=== PATIENT | female | born 1955 | race Caucasian/White ===

== ENCOUNTER 2017-12-18 08:00 | Outpatient (CLI) | payer MEDICARE ==
[2017-12-18 19:16] LABS: BILIRUBIN,URINE NEGATIVE (NEGATIVE); GLUCOSE, URINE (UA) NEGATIVE (NEGATIVE); KETONES,URINE (UA) NEGATIVE (NEGATIVE); LEUKOCYTE ESTERASE, URINE NEGATIVE (NEGATIVE); NITRITE,URINE NEGATIVE (NEGATIVE); OCCULT BLOOD,URINE NEGATIVE (NEGATIVE); PROTEIN,URINE NEGATIVE (NEGATIVE); UROBILINOGEN,URINE 0.2 (NORMAL) E.U./dL (NORMAL)
[2017-12-18 19:33] LABS: BACTERIA,URINE None Seen /HPF (None Seen); CLARITY,URINE CLEAR (CLEAR); RBC,URINE None Seen /HPF (0-5); SQUAMOUS EPITHELIAL CELL,UR FEW Squamous (<= Few)
== END 2017-12-18 08:01 ==
LOC: LAB.R 08:00
PROVIDERS: ATTEND Family Medicine
DX: R31.9 Hematuria, unspecified (principal)
CPT/HCPCS: 81001; 87086

== ENCOUNTER 2017-12-30 08:00 | Outpatient (CLI) | payer MEDICARE ==
[2017-12-30 19:38] LABS: BASOPHILS # (AUTO) 0.1 10^3/uL (0.0-0.1); BASOPHILS % (AUTO) 0.9 %; EOSINOPHILS # (AUTO) 0.7 10^3/uL (0.0-0.7); EOSINOPHILS % (AUTO) 10.1 %; HGB - HEMOGLOBIN 12.3 g/dL (12.0-16.0); LYMPHOCYTES # (AUTO) 2.3 10^3/uL (1.5-3.5); LYMPHOCYTES % (AUTO) 32.1 %; MEAN CORPUSCULAR HEMOGLOBIN 30.3 pg (27.0-31.0); MEAN CORPUSCULAR HGB CONC 32.8 g/dL (32.0-36.0); MEAN CORPUSCULAR VOLUME 92.4 fL (81.0-99.0); MEAN PLATELET VOLUME 8.8 fL (7.9-10.8); MONOCYTES # (AUTO) 0.6 10^3/uL (0.0-1.0); MONOCYTES % (AUTO) 8.2 %; NEUTROPHILS # (AUTO) 3.5 10^3/uL (1.5-6.6); NEUTROPHILS % (AUTO) 48.7 %; PLT - PLATELET COUNT 219 10^3/uL (130-450); RED BLOOD COUNT 4.07 10^6/uL (4.20-5.40); RED CELL DISTRIBUTION WIDTH 13.7 % (12.0-15.0); WHITE BLOOD COUNT 7.2 x10^3/uL (4.8-10.8)
[2017-12-30 20:04] LABS: ALBUMIN 3.9 g/dL (3.2-5.5); ALKALINE PHOSPHATASE 83 IU/L (42-121); ALT ALANINE AMINOTRANSFERASE 12 IU/L (10-60); AST ASPARTATE AMINOTRANSFERASE 16 IU/L (10-42); BILIRUBIN,TOTAL 0.7 mg/dL (0.2-1.0); BUN - BLOOD UREA NITROGEN 39 mg/dL (6-20); CALCIUM 9.2 mg/dL (8.5-10.3); CARBON DIOXIDE - CO2 28 mmol/L (21-32); CHLORIDE 104 mmol/L (101-111); CHOL/HDL RATIO 5.1 (<4.4); CHOLESTEROL 204 mg/dL; GFR - MDRD 56 (>89); GLUCOSE 114 mg/dL (70-100); HDL CHOLESTEROL 40 mg/dL; LDL CHOLESTEROL,CALCULATED 131 mg/dL; LDL/HDL RATIO 3.3 (<4.4); SODIUM 138 mmol/L (135-145); VLDL CHOLESTEROL 33 mg/dL
== END 2017-12-30 08:01 | disposition home or self-care (01) ==
LOC: LAB.N 08:00
PROVIDERS: ATTEND Family Medicine
DX: I10 Essential (primary) hypertension (principal); E66.9 Obesity, unspecified
CPT/HCPCS: 36415; 80053; 80061; 83721; 84443; 85025

== ENCOUNTER 2018-03-12 08:00 | Outpatient (CLI) | payer MEDICARE | END 2018-03-12 08:01 | LOC: LAB.R 08:00 | PROVIDERS: ATTEND Family Medicine | DX: L97.821 Non-pressure chronic ulcer of other part of left lower leg limited to breakdown of skin (principal) ==

== ENCOUNTER 2018-06-25 16:40 | Emergency (ER) | payer MEDICARE, MEDICAID ==
[2018-06-25 17:35] LABS: BASOPHILS # (AUTO) 0.1 10^3/uL (0.0-0.1); BASOPHILS % (AUTO) 1.3 %; EOSINOPHILS # (AUTO) 0.4 10^3/uL (0.0-0.7); EOSINOPHILS % (AUTO) 6.5 %; HGB - HEMOGLOBIN 12.1 g/dL (12.0-16.0); LYMPHOCYTES # (AUTO) 1.8 10^3/uL (1.5-3.5); LYMPHOCYTES % (AUTO) 29.6 %; MEAN CORPUSCULAR HEMOGLOBIN 31.2 pg (27.0-31.0); MEAN CORPUSCULAR VOLUME 94.4 fL (81.0-99.0); MEAN PLATELET VOLUME 8.5 fL (7.9-10.8); MONOCYTES # (AUTO) 0.5 10^3/uL (0.0-1.0); MONOCYTES % (AUTO) 7.3 %; NEUTROPHILS # (AUTO) 3.4 10^3/uL (1.5-6.6); NEUTROPHILS % (AUTO) 55.3 %; PLT - PLATELET COUNT 176 10^3/uL (130-450); RED BLOOD COUNT 3.89 10^6/uL (4.20-5.40); WHITE BLOOD COUNT 6.2 x10^3/uL (4.8-10.8)
[2018-06-25 17:42] LABS: INR 1.1 (0.8-1.2)
--- NOTE | 2018-06-25 17:44 | ED Physician Documentation ---
PD HPI GI BLEED - Stated complaint Stated Complaint: FEMALE - Chief complaint Chief Complaint: Abd Pain - History obtained from History obtained from: Patient, Family - History of Present Illness Timing - onset: How many weeks ago (1) Timing - duration: Weeks (1) Timing - details: Gradual onset Pain level max: 4 Pain level now: 3 Associated symptoms: BRBPR, Diarrhea, Abdominal pain (lower abd pain, cramping). No: Vomiting, Coffee ground emesis, Hematemesis, Maroon stool, Black/tarry stool, Constipation, Fever, Dizzy, Near syncope / syncope, Loss of appetite Contributing factors: No: Sick contact, Bad food, Travel, Recent antibiotics, Alcohol use, Aspirin use, NSAID use, Stress, Anticoagulated Improved by: Other (nothing) Worsened by: Other (nothing) Similar symptoms before: Has not had sx before Recently seen: Not recently seen - Additional information Additional information: Patient states has noticed small amount of bright red blood in the stool over the past week or so. Increased bright red blood in the toilet today. Has had lower abdominal cramping as well Review of Systems Constitutional: denies: Fever, Chills Ears: denies: Ear pain Nose: denies: Rhinorrhea / runny nose, Congestion Throat: denies: Sore throat Cardiac: denies: Chest pain / pressure Respiratory: denies: Cough GI: denies: Nausea, Vomiting Skin: denies: Rash Musculoskeletal: denies: Neck pain, Back pain PD PAST MEDICAL HISTORY - Past Medical History Past Medical History: Yes - Present Medications Home Medications: Ambulatory Orders Medication Instructions Recorded Confirmed Citalopram [CeleXA] 10 mg 06/25/18 Cranberry 2 cap 06/25/18 Diclofenac Sodium 75 mg BID 06/25/18 06/25/18 Enalapril [Vasotec] 5 mg 06/25/18 Magnesium 400 mg 06/25/18 Nebivolol HCl [Bystolic] 5 mg 06/25/18 Nystatin 1 applic TP BID PRN #1 powder 06/25/18 Triamterene/Hydrochlorothiazid 1 cap 06/25/18 [Triamterene-Hctz 37.5-25 mg Cp] - Allergies Allergies/Adverse Reactions: Allergies Allergy/AdvReac Type Severity Reaction Status Date / Time azithromycin Allergy Hives Verified 06/25/18 16:53 mupirocin [From Bactroban] Allergy Rash Verified 06/25/18 16:53 Penicillins Allergy Hives Verified 06/25/18 16:53 strawberry Allergy Hives Verified 06/25/18 16:53 walnut Allergy Hives Verified 06/25/18 16:53 PD ED PE NORMAL - Vitals Vital signs reviewed: Yes - General General: Alert and oriented X 3, No acute distress - HEENT HEENT: Moist mucous membranes - Neck Neck: Supple, no meningeal sign - Cardiac Cardiac: RRR, Strong equal pulses - Respiratory Respiratory: No respiratory distress, Clear bilaterally - Abdomen Abdomen: Soft, Non distended, Other (Mild tenderness to palpation across the lower abdomen) - Rectal Rectal: Other (Brown stool, skin breakdown around the perineal area) - Derm Derm: Warm and dry - Neuro Neuro: Alert and oriented X 3 - Psych Psych: Normal mood, Normal affect Results - Vitals Vitals: Vital Signs - 24 hr 06/25/18 06/25/18 16:49 19:20 Temperature 36.2 C L Heart Rate 57 L 64 Respiratory 18 20 Rate Blood Pressure 122/67 120/77 O2 Saturation 95 Oxygen O2 Source Room air - Labs Labs: Laboratory Tests 06/25/18 06/25/18 06/25/18 17:23 17:23 17:23 WBC RBC Hgb Hct MCV MCH MCHC RDW Plt Count MPV Neut # (Auto) Lymph # (Auto) Bond # (Auto) Eos # (Auto) Baso # (Auto) Absolute Nucleated RBC Nucleated RBC % PT 12.0 INR 1.1 APTT 25.0 Sodium 139 Potassium 5.2 H Chloride 105 Carbon Dioxide 26 Anion Gap 8.0 BUN 49 H Creatinine 1.5 H Estimated GFR (MDRD) 35 L Glucose 102 H Calcium 9.2 Total Bilirubin 0.3 AST 16 ALT 14 Alkaline Phosphatase 74 Total Protein 7.6 Albumin 4.2 Globulin 3.4 Albumin/Globulin Ratio 1.2 Lipase 33 Blood Type O POSITIVE Antibody Screen NEGATIVE 06/25/18 17:23 WBC 6.2 RBC 3.89 L Hgb 12.1 Hct 36.7 L MCV 94.4 MCH 31.2 H MCHC 33.0 RDW 13.0 Plt Count 176 MPV 8.5 Neut # (Auto) 3.4 Lymph # (Auto) 1.8 Bond # (Auto) 0.5 Eos # (Auto) 0.4 Baso # (Auto) 0.1 Absolute Nucleated RBC 0.01 Nucleated RBC % 0.1 PT INR APTT Sodium Potassium Chloride Carbon Dioxide Anion Gap BUN Creatinine Estimated GFR (MDRD) Glucose Calcium Total Bilirubin AST ALT Alkaline Phosphatase Total Protein Albumin Globulin Albumin/Globulin Ratio Lipase Blood Type Antibody Screen - Rads (name of study) CT abd/pelvis Radiology: Prelim report reviewed, EMP read contemporaneously, See rad report (No bowel abnormality identified to explain rectal bleeding and pain. 2. Prominent common bile duct post cholecystectomy. 3. Lower pole left renal cyst. 4. Advanced degenerative and postoperative changes of the lumbar spine. ) PD MEDICAL DECISION MAKING - ED course Complexity details: reviewed results, re-evaluated patient, considered differential, d/w patient ED course: Patient is a 63-year-old female who presents to the emergency department with rectal bleeding. Have some abdominal tenderness, therefore CT was performed to evaluate for possible diverticulitis. This was negative. She then started bleeding in the emergency department and there was a small Puncture in the gluteal cleft. This was cauterized with silver nitrate and the bleeding resolved. Appears to be secondary to skin breakdown. Will place on nystatin powder to help with the yeast infection. Patient and family counseled regarding signs and symptoms for which I believe and urgent re-evaluation would be necessary. Patient with good understanding of and agreement to plan and is comfortable going home at this time This document was made in part using voice recognition software. While efforts are made to proofread this document, sound alike and grammatical errors may occur. Departure - Departure Disposition: 01 Home, Self Care Clinical Impression: Rectal bleeding, Skin breakdown, Rachel infection of flexural skin Condition: Good Instructions: ED Candidiasis Cutaneous Follow-Up: Rob Sullivan MD [Primary Care Provider] - Within 1 week Prescriptions: Nystatin 1 applic TP BID PRN #1 powder PRN Reason: rash Comments: Use the nystatin cream and see how she progresses. Return if she worsens. We cauterized the area tonight that was bleeding. If bleeding recurs she can hold direct pressure until it stops. Discharge Date/Time: 06/25/18 19:25
[2018-06-25 17:49] LABS: ALBUMIN 4.2 g/dL (3.2-5.5); ALBUMIN/GLOBULIN RATIO 1.2 (1.0-2.2); BILIRUBIN,TOTAL 0.3 mg/dL (0.2-1.0); CALCIUM 9.2 mg/dL (8.5-10.3); CREATININE 1.5 mg/dL (0.4-1.0); TOTAL PROTEIN 7.6 g/dL (6.7-8.2)
[2018-06-25] MEDS ORDERED: IOPAMIDOL-300 100 ML VIAL ONE (17:51)
[2018-06-25] MEDS ORDERED: SODIUM CHLORIDE 0.9% 1,000 ML IV ONE ×2 (18:21)
--- NOTE | 2018-06-25 18:39 | CT Report ---
Reason: rectal bleeding, lower abd pain Procedure Date: 06/25/2018 Accession Number: [id number] / [id number] Procedure: CT - Abdomen/Pelvis W/ CPT Code: FULL RESULT: EXAM: CT ABDOMEN AND PELVIS EXAM DATE: 06/25/2018 06:16 PM. CLINICAL HISTORY: Rectal bleeding. Lower abdomen pain. COMPARISONS: None. TECHNIQUE: Routine helical CT imaging was performed through the abdomen and pelvis. IV contrast: 100 cc of Isovue-300. Enteric contrast: No. Reconstructions: Coronal and sagittal. In accordance with CT protocol optimization, one or more of the following dose reduction techniques were utilized for this exam: automated exposure control, adjustment of mA and/or KV based on patient size, or use of iterative reconstructive technique. FINDINGS: Lung Bases: Unremarkable. Liver: Normal. No masses. Gallbladder/Bile Ducts: Prominent common bile duct at 11 mm in diameter. Cholecystectomy. Spleen: Normal. Pancreas: Normal. Adrenal Glands: Normal. Kidneys: Lower pole cyst on the left, otherwise unremarkable. Peritoneal Cavity/Bowel: Normal. No free fluid, free air or adenopathy. No masses or acute inflammatory process. The appendix is well visualized and normal. Pelvic Organs: Normal. The bladder and visualized pelvic organs are within normal limits. Vasculature: No aneurysms or other significant abnormality. Bones: Advanced degenerative and postoperative changes in the lumbar spine. Other: None. IMPRESSION: 1. No bowel abnormality identified to explain rectal bleeding and pain. 2. Prominent common bile duct post cholecystectomy. 3. Lower pole left renal cyst. 4. Advanced degenerative and postoperative changes of the lumbar spine. RADIA
[2018-06-25 19:29] VITALS: BP 120/77
[2018-06-25] MEDS ORDERED: IOPAMIDOL-300 100 ML VIAL IVP ONE (19:29)
== END 2018-06-25 19:25 | disposition home or self-care (01) ==
LOC: ED 16:40
DX: K62.5 Hemorrhage of anus and rectum (principal); S31.803A Puncture wound without foreign body of unspecified buttock, initial encounter; X58.XXXA Exposure to other specified factors, initial encounter; B37.2 Candidiasis of skin and nail
CPT/HCPCS: 36415; 74177; 80053; 83690; 85025; 85610; 85730; 86850; 86900; 86901; 99283; 99284; Q9967; 85027

== ENCOUNTER 2018-07-29 08:00 | Outpatient (CLI) | payer MEDICARE, MEDICAID ==
[2018-07-29 12:50] LABS: CALCIUM 9.6 mg/dL (8.5-10.3); CREATININE 1.4 mg/dL (0.4-1.0)
== END 2018-07-29 08:01 | disposition home or self-care (01) ==
LOC: LAB.N 08:00
PROVIDERS: ATTEND Family Medicine
DX: I10 Essential (primary) hypertension (principal)
CPT/HCPCS: 36415; 80048

== ENCOUNTER 2018-10-23 08:00 | Outpatient (CLI) | payer MEDICARE, MEDICAID ==
[2018-10-23 13:35] LABS: BASOPHILS # (AUTO) 0.1 10^3/uL (0.0-0.1); EOSINOPHILS % (AUTO) 16.1 %; HGB - HEMOGLOBIN 11.3 g/dL (12.0-16.0); LYMPHOCYTES # (AUTO) 1.7 10^3/uL (1.5-3.5); MEAN CORPUSCULAR HGB CONC 32.9 g/dL (32.0-36.0); MEAN CORPUSCULAR VOLUME 94.3 fL (81.0-99.0); MEAN PLATELET VOLUME 8.6 fL (7.9-10.8); MONOCYTES # (AUTO) 0.4 10^3/uL (0.0-1.0); MONOCYTES % (AUTO) 5.6 %; NEUTROPHILS # (AUTO) 3.3 10^3/uL (1.5-6.6); NEUTROPHILS % (AUTO) 51.3 %; PLT - PLATELET COUNT 207 10^3/uL (130-450); RED BLOOD COUNT 3.65 10^6/uL (4.20-5.40); RED CELL DISTRIBUTION WIDTH 13.2 % (12.0-15.0); WHITE BLOOD COUNT 6.5 x10^3/uL (4.8-10.8)
[2018-10-23 14:46] LABS: ALBUMIN 3.6 g/dL (3.2-5.5); ALKALINE PHOSPHATASE 66 IU/L (42-121); ALT ALANINE AMINOTRANSFERASE 14 IU/L (10-60); AST ASPARTATE AMINOTRANSFERASE 17 IU/L (10-42); BILIRUBIN,TOTAL 0.5 mg/dL (0.2-1.0); BUN - BLOOD UREA NITROGEN 37 mg/dL (6-20); CARBON DIOXIDE - CO2 28 mmol/L (21-32); CHLORIDE 105 mmol/L (101-111); CHOL/HDL RATIO 4.5 (<4.4); CHOLESTEROL 180 mg/dL; CREATININE 1.5 mg/dL (0.4-1.0); GFR - MDRD 35 (>89); GLUCOSE 97 mg/dL (70-100); HDL CHOLESTEROL 40 mg/dL; LDL CHOLESTEROL,CALCULATED 105 mg/dL; LDL/HDL RATIO 2.6 (<4.4); SODIUM 141 mmol/L (135-145); TOTAL PROTEIN 7.3 g/dL (6.7-8.2); VLDL CHOLESTEROL 35 mg/dL
[2018-10-23 15:03] LABS: HB2 TOTAL 12.2 g/dL; HEMOGLOBIN A1C 0.35 g/dL; HEMOGLOBIN A1C % 4.8 % (4.6-6.2)
== END 2018-10-23 23:59 | disposition home or self-care (01) ==
LOC: LAB.N 08:00
DX: R73.01 Impaired fasting glucose (principal); I10 Essential (primary) hypertension
CPT/HCPCS: 36415; 80053; 80061; 83036; 83721; 84443; 85025

== ENCOUNTER 2019-01-08 19:52 | Emergency (ER) | payer MEDICARE, MEDICAID ==
[2019-01-08 20:13] LABS: GLUCOSE, URINE (UA) NEGATIVE (NEGATIVE); KETONES,URINE (UA) TRACE mg/dL (NEGATIVE); LEUKOCYTE ESTERASE, URINE MODERATE (NEGATIVE); NITRITE,URINE POSITIVE (NEGATIVE); OCCULT BLOOD,URINE LARGE (NEGATIVE); PH,URINE 6.5 PH (5.0-7.5); PROTEIN,URINE 100 mg/dL (NEGATIVE); UROBILINOGEN,URINE 1 (NORMAL) E.U./dL (NORMAL)
[2019-01-08 20:23] LABS: BILIRUBIN,URINE NEGATIVE (NEGATIVE); CLARITY,URINE CLOUDY (CLEAR); ICTOTEST,URINE NEGATIVE; RBC,URINE TNTC /HPF (0-5); SQUAMOUS EPITHELIAL CELL,UR FEW Squamous (<= Few); WBC CLUMPS,URINE PRESENT
[2019-01-08 20:24] LABS: BACTERIA,URINE Moderate /HPF (None Seen)
--- NOTE | 2019-01-08 20:30 | ED Physician Documentation ---
PD HPI FEMALE - Stated complaint Stated Complaint: FEM - Chief complaint Chief Complaint: Abd Pain - History obtained from History obtained from: Patient - History of Present Illness Timing - onset: How many days ago (few) Timing - duration: Days (few) Timing - details: Gradual onset, Still present Associated symptoms: Dysuria, Urinary frequency, Hematuria. No: Fever, Vaginal discharge Similar symptoms before: Diagnosis (UTIs) Recently seen: Not recently seen Review of Systems Constitutional: denies: Fever, Chills GI: denies: Abdominal Pain, Nausea, Vomiting, Diarrhea : reports: Dysuria, Hematuria PD PAST MEDICAL HISTORY - Past Medical History Past Medical History: Yes Cardiovascular: Hypertension, High cholesterol Respiratory: Asthma Neuro: None Endocrine/Autoimmune: None GI: None IOS DEVELOPER: None : None HEENT: None Psych: Depression Musculoskeletal: Osteoarthritis Derm: None - Past Surgical History Past Surgical History: Yes General: Colonoscopy Ortho: Knee replacement - Present Medications Home Medications: Ambulatory Orders Medication Instructions Recorded Confirmed Citalopram [CeleXA] 10 mg PO DAILY 06/25/18 12/18/18 Cranberry 2 cap PO PRN PRN 06/25/18 12/18/18 Diclofenac Sodium 75 mg PO BID 06/25/18 12/18/18 Enalapril [Vasotec] 2.5 mg PO DAILY PM 06/25/18 12/18/18 Nebivolol HCl [Bystolic] 5 mg PO DAILY 06/25/18 12/18/18 Acetaminophen [Acetaminophen ER] 650 mg PO TID PRN 12/18/18 12/18/18 Albuterol Sulfate [Albuterol 2 puffs INH Q4H PRN 12/18/18 12/18/18 Sulfate Hfa] Aspirin [Aspirin EC] 81 mg PO DAILY 12/18/18 12/18/18 Ondansetron Odt [Zofran Odt] 4 mg PO Q8H PRN 12/18/18 12/18/18 Phenazopyridine HCl [Pyridium] 200 mg PO TID PRN #6 tablet 01/08/19 Psyllium Husk [Metamucil] 0.52 gm PO DAILY #30 capsule 01/08/19 Saccharomyces Boulardii [Florastor] 250 mg PO BID #20 capsule 01/08/19 Sulfamethox/Trimeth 800/160 1 each PO BID #14 tablet 01/08/19 [Bactrim Ds 800/160] - Allergies Allergies/Adverse Reactions: Allergies Allergy/AdvReac Type Severity Reaction Status Date / Time azithromycin Allergy Hives Verified 06/25/18 16:53 mupirocin [From Bactroban] Allergy Rash Verified 06/25/18 16:53 Penicillins Allergy Hives Verified 06/25/18 16:53 strawberry Allergy Hives Verified 06/25/18 16:53 walnut Allergy Hives Verified 06/25/18 16:53 - Social History Does the pt smoke?: No Smoking Status: Never smoker Does the pt drink ETOH?: No Does the pt have substance abuse?: Yes Substance Use and Type: Marijuana - Immunizations Immunizations are current?: Yes PD ED PE NORMAL - Vitals Vital signs reviewed: Yes - General General: Alert and oriented X 3, No acute distress, Well developed/nourished - Abdomen Abdomen: Soft, Non tender - Female Female : Deferred - Back Back: No CVA TTP Results - Vitals Vitals: Vital Signs - 24 hr 01/08/19 21:35 Heart Rate 50 L Respiratory 16 Rate Blood Pressure 100/79 O2 Saturation 94 Oxygen O2 Source Room air - Labs Labs: Microbiology 01/08/19 20:04 Urine Culture - Preliminary Urine,Clean Catch Laboratory Tests 01/08/19 20:04 Urine Color BROWN Urine Clarity CLOUDY Urine pH 6.5 Ur Specific [place] 1.020 Urine Protein 100 H Urine Glucose (UA) NEGATIVE Urine Ketones TRACE Urine Occult Blood LARGE H Urine Nitrite POSITIVE H Urine Bilirubin NEGATIVE Urine Urobilinogen 1 (NORMAL) Ur Leukocyte Esterase MODERATE H Urine RBC TNTC H Urine WBC >25 H Urine WBC Clumps PRESENT Ur Squamous Epith Cells FEW Squamous Urine Bacteria Moderate H Ur Microscopic Review INDICATED Urine Culture Comments INDICATED PD MEDICAL DECISION MAKING - ED course Complexity details: reviewed results, considered differential, d/w patient Departure - Departure Disposition: 01 Home, Self Care Clinical Impression: UTI (urinary tract infection) Qualifiers: Urinary tract infection type: acute cystitis Hematuria presence: with hematuria Qualified Code(s): N30.01 - Acute cystitis with hematuria Diarrhea Qualifiers: Diarrhea type: infectious Qualified Code(s): A09 - Infectious gastroenteritis and colitis, unspecified Condition: Stable Record reviewed to determine appropriate education?: Yes Instructions: ED UTI Cystitis Female Follow-Up: Elisa Montelongo ARNP [Primary Care Provider] - Prescriptions: Phenazopyridine HCl [Pyridium] 200 mg PO TID PRN #6 tablet PRN Reason: dysuria Psyllium Husk [Metamucil] 0.52 gm PO DAILY #30 capsule Saccharomyces Boulardii [Florastor] 250 mg PO BID #20 capsule Sulfamethox/Trimeth 800/160 [Bactrim Ds 800/160] 1 each PO BID #14 tablet Comments: Stay well-hydrated. Use Bactrim Telfa) antibiotic twice daily for a week for the infection. Phenazopyridine 3 times a day if needed for the discomfort of urination. Able to do urine a little orange-colored so not to worry. Use Metamucil fiber daily to try to regulate stools not to soft and not too hard. Add Florastor probiotic twice daily for a week. Recheck if your urinary symptoms are not improving over the next 2 to 3 days. Recheck if your stools are not more regular over the next week or so. Discharge Date/Time: 01/08/19 21:36
[2019-01-08] MEDS ORDERED: PHENAZOPYRIDINE 100 MG TABLET PO STA (21:02)
[2019-01-08] MEDS ORDERED: SULFAMETH/TRIMETH DS 800/160 MG TABLET PO STA (21:02)
[2019-01-08] MEDS ORDERED: NAPROXEN 250 MG TABLET PO STA (21:02)
[2019-01-08 22:19] VITALS: BP 100/79
== END 2019-01-08 21:36 | disposition home or self-care (01) ==
LOC: ED 19:52
DX: N30.01 Acute cystitis with hematuria (principal); A09 Infectious gastroenteritis and colitis, unspecified; I10 Essential (primary) hypertension; Z79.82 Long term (current) use of aspirin
CPT/HCPCS: 81001; 87077; 87086; 87181; 99283; A9270; 81003

== ENCOUNTER 2019-07-28 08:00 | Outpatient (CLI) | payer MEDICARE, MEDICAID | END 2019-07-28 23:59 | disposition home or self-care (01) | LOC: LAB.R 08:00 | PROVIDERS: ATTEND Physician Assistant Medical | DX: L97.909 Non-pressure chronic ulcer of unspecified part of unspecified lower leg with unspecified severity (principal) | CPT/HCPCS: 87070; 87077; 87181; 87205 ==

== ENCOUNTER 2019-08-04 10:29 | Outpatient (CLI) | payer MEDICARE, MEDICAID | END 2019-08-04 10:30 | disposition critical access hospital (66) | LOC: EMS 10:29 | PROVIDERS: ATTEND Surgery | DX: M25.552 Pain in left hip (principal) | CPT/HCPCS: A0425; A0429 ==

== ENCOUNTER 2019-08-04 10:52 | Emergency (ER) | payer MEDICARE, MEDICAID ==
[2019-08-04 11:09] VITALS: BP 115/48
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
[2019-08-04] MEDS ORDERED: HYDROcod/ACETAM 5/325 MG TABLET PO STA (11:58)
[2019-08-04] MEDS ORDERED: KETOROLAC 30 MG/ML VIAL IM STA (11:58)
--- NOTE | 2019-08-04 12:57 | XRAY Report ---
Reason: po and pain left knee yesterday Procedure Date: 08/04/2019 Accession Number: [id number] / [id number] Procedure: XR - Knee 4 View LT CPT Code: Final Report FULL RESULT: EXAM: LEFT KNEE RADIOGRAPHY EXAM DATE: 08/04/2019 12:28 PM. CLINICAL HISTORY: Popping and pain left knee yesterday. COMPARISON: KNEE 3 VIEW LT 01/12/2018 2:51 PM. TECHNIQUE: 4 views. FINDINGS: Bones/joints: No obvious acute fracture. Severe degenerative changes with tricompartmental joint space narrowing and marginal osteophyte formation No obvious effusion. No subluxation. Soft Tissues: Unremarkable. IMPRESSION: 1. No acute fracture or malalignment. 2. Severe degenerative changes. RADIA
== END 2019-08-04 14:08 | disposition home or self-care (01) ==
LOC: ED 10:52
DX: S86.912A Strain of unspecified muscle(s) and tendon(s) at lower leg level, left leg, initial encounter (principal); M17.10 Unilateral primary osteoarthritis, unspecified knee; X58.XXXA Exposure to other specified factors, initial encounter; Y92.099 Unspecified place in other non-institutional residence as the place of occurrence of the external cause; I10 Essential (primary) hypertension
CPT/HCPCS: 73564; 96372; 99283; 99284; A9270

== ENCOUNTER 2020-03-08 15:00 | Outpatient (CLI) | payer MEDICARE, MEDICAID ==
--- NOTE | 2020-03-08 16:54 | Ultrasound Report ---
PROCEDURE: Pelvic w/Transvaginal INDICATIONS: POSTMENOPAUSAL BLEEDING TECHNIQUE: Real-time scanning was performed of the pelvic organs, with image documentation. Additional endovagi nal scanning was necessary due to incomplete visualization of the adnexal and endometrial structures by transabdominal scanning. COMPARISON: None. FINDINGS: Transabdominal scanning: Limited scanning through the kidneys shows no hydronephrosis. No pathologi c free abdominal or pelvic fluid. Endovaginal scanning: Uterus: Uterus is normal in size at 8.8 x 4.0 x 4.3 cm. Uterine echotexture is within normal limits. The endometrium measures 5.2 mm in combined thickness. Ovaries: Right ovary measures 1.7 x 1.2 x 1.1 cm. Left ovary measures 1.5 x 11.5 x 1.4 cm. Ovaries a re sonographically normal. Incidental note made of bilateral simple appearing renal cysts. Additional note made of nabothian cys ts. IMPRESSION: 1. Slightly thickened endometrium in female with postmenopausal bleeding. Recommend gynecology consul tation to evaluate for D&C. 2. Ovaries are sonographically normal. Reviewed by: Shivani Milton MD, PhD on 03/08/2020 4:53 PM PDT Approved by: Shivani Milton MD, PhD on 03/08/2020 4:53 PM PDT Station ID: [id number]
== END 2020-03-08 15:01 | disposition home or self-care (01) ==
LOC: DI 15:00
PROVIDERS: ATTEND Obstetrics & Gynecology
DX: N95.0 Postmenopausal bleeding (principal)
CPT/HCPCS: 76830; 76856

== ENCOUNTER 2020-04-14 09:40 | Outpatient (CLI) | payer MEDICARE, MEDICAID ==
[2020-04-14 11:40] LABS: BASOPHILS # (AUTO) 0.1 10^3/uL (0.0-0.1); BASOPHILS % (AUTO) 0.6 %; EOSINOPHILS % (AUTO) 9.6 %; HGB - HEMOGLOBIN 8.2 g/dL (12.0-16.0); LYMPHOCYTES # (AUTO) 1.5 10^3/uL (1.5-3.5); LYMPHOCYTES % (AUTO) 14.4 %; MEAN CORPUSCULAR HEMOGLOBIN 26.9 pg (27.0-31.0); MEAN CORPUSCULAR HGB CONC 29.4 g/dL (32.0-36.0); MEAN CORPUSCULAR VOLUME 91.5 fL (81.0-99.0); MEAN PLATELET VOLUME 9.9 fL (7.9-10.8); MONOCYTES # (AUTO) 0.8 10^3/uL (0.0-1.0); NEUTROPHILS # (AUTO) 6.7 10^3/uL (1.5-6.6); PLT - PLATELET COUNT 264 10^3/uL (130-450); RED BLOOD COUNT 3.05 10^6/uL (4.20-5.40); RED CELL DISTRIBUTION WIDTH 14.2 % (12.0-15.0); WHITE BLOOD COUNT 10.1 x10^3/uL (4.8-10.8)
[2020-04-14 13:10] LABS: ALBUMIN 3.3 g/dL (3.2-5.5); ALBUMIN/GLOBULIN RATIO 0.8 (1.0-2.2); ALKALINE PHOSPHATASE 76 IU/L (42-121); ALT ALANINE AMINOTRANSFERASE 10 IU/L (10-60); AST ASPARTATE AMINOTRANSFERASE 12 IU/L (10-42); BILIRUBIN,TOTAL < 0.2 mg/dL (0.2-1.0); BUN - BLOOD UREA NITROGEN 44 mg/dL (6-20); CALCIUM 8.8 mg/dL (8.5-10.3); CARBON DIOXIDE - CO2 25 mmol/L (21-32); CHLORIDE 107 mmol/L (101-111); CHOLESTEROL 140 mg/dL; CREATININE 1.7 mg/dL (0.4-1.0); GLUCOSE 104 mg/dL (70-100); HDL CHOLESTEROL 28 mg/dL; LDL CHOLESTEROL,CALCULATED 87 mg/dL; LDL/HDL RATIO 3.1 (<4.4); SODIUM 137 mmol/L (135-145); TOTAL PROTEIN 7.6 g/dL (6.7-8.2); VLDL CHOLESTEROL 25 mg/dL
== END 2020-04-14 23:59 | disposition home or self-care (01) ==
LOC: LAB.WCP 09:40
PROVIDERS: ATTEND Physician Assistant
DX: E78.5 Hyperlipidemia, unspecified (principal); E66.01 Morbid (severe) obesity due to excess calories
CPT/HCPCS: 36415; 80053; 80061; 83036; 83721; 85025

== ENCOUNTER 2020-04-14 16:57 | Outpatient (CLI) | payer MEDICARE, MEDICAID | END 2020-04-14 23:59 | disposition home or self-care (01) | LOC: LAB.R 16:57 | PROVIDERS: ATTEND Physician Assistant | DX: N39.0 Urinary tract infection, site not specified (principal); L97.909 Non-pressure chronic ulcer of unspecified part of unspecified lower leg with unspecified severity | CPT/HCPCS: 87070; 87077; 87086; 87181; 87205 ==

== ENCOUNTER 2020-05-12 08:00 | Outpatient (CLI) | payer MEDICARE, MEDICAID ==
[2020-05-12 18:58] LABS: ALBUMIN 3.5 g/dL (3.2-5.5); ALBUMIN/GLOBULIN RATIO 0.9 (1.0-2.2); BILIRUBIN,TOTAL 0.3 mg/dL (0.2-1.0); CALCIUM 8.9 mg/dL (8.5-10.3); CREATININE 1.7 mg/dL (0.4-1.0); TOTAL PROTEIN 7.4 g/dL (6.7-8.2)
== END 2020-05-12 23:59 | disposition home or self-care (01) ==
LOC: LAB.WCP 08:00
PROVIDERS: ATTEND Physician Assistant
DX: N18.9 Chronic kidney disease, unspecified (principal); N39.0 Urinary tract infection, site not specified
CPT/HCPCS: 36415; 80053; 87077; 87086; 87181

== ENCOUNTER 2020-05-24 10:08 | Outpatient (CLI) | payer MEDICARE, MEDICAID ==
[2020-05-24] MEDS: AMINOPHYLLINE 500 MG/20 ML VIAL IVP ONE (11:30)
[2020-05-24] MEDS: REGADENOSON 0.4 MG/5 ML SYRINGE IVP ONE (11:30)
--- NOTE | 2020-05-24 13:20 | CARDIAC PROCEDURE NOTE ---
DATE OF SERVICE: 05/24/2020 Physician: Heydi Hendrix MD, [facility] INDICATION: Chest pain, family history of heart disease. CARDIAC RISK FACTORS: Postmenopausal status, morbid obesity, hypertension, diabetes, elevated cholesterol, family history of heart disease. PROCEDURE: After signing informed consent, the patient underwent a Lexiscan pharmaceutical stress test with nuclear myocardial perfusion imaging. RESTING HEART RATE: 56. PEAK HEART RATE: 85. RESTING BLOOD PRESSURE: 116/59. PEAK BLOOD PRESSURE: 169/60. Lexiscan was infused per protocol. The patient developed flushing and nausea and had vomiting x2. There was no chest pain or shortness of breath. Aminophylline 25 mg IV was given for reversal of her symptoms. Oxygen saturation remained 96%-98% on room air throughout the test. RESTING EKG: Sinus bradycardia, within normal limits. EKG AT PEAK: No new ST-segment or T-wave changes. IMPRESSION 1. Normal resting EKG. 2. No ischemic changes developed during pharmaceutical stressing. 3. Nuclear images reported separately. 4. This patient's cardiac risk based on all the above: Moderate due to her multiple risk factors. cc: Maryse Wharton PA-C TD: 05/24/2020 12:12 [email or web address]
--- NOTE | 2020-05-25 17:56 | Nuclear Medicine Report ---
PROCEDURE: Rest and exercise myocardial perfusion SPECT with gated imaging and ejection fraction INDICATIONS: CHEST PAIN RADIOPHARMACEUTICAL: 21.7 mCi Tc-99m Myoview IV at rest and 22.5 mCi Tc-99m Myoview IV at peak exerc ise. [id number] was performed. TECHNIQUE: Radiopharmaceutical was injected at peak stress test, and also at rest. SPECT images wer e obtained. SPECT myocardial perfusion images were displayed in short axis, horizontal long axis, an d vertical long axis views. Gated images were reviewed using Auto[employer] software. COMPARISON: None available. CARDIAC STRESS: A standard Garry treadmill exercise tolerance test was performed by the patient under the supervision of an attending staff. The patient exercised for 3 minutes and 54 seconds; functional aerobic impai rment (LELAND) is 78%. Hemodynamic data: There is normal blood pressure and heart rate response to exercise stress. Patien t achieved 55% of maximum predicted heart rate at peak exercise. Symptoms: Patient denied chest pain during exercise. EKG: No diagnostic EKG changes of ischemia; no ectopy. FINDINGS: Raw data: There is good myocardial labeling by radiotracer. No significant motion artifacts. Lung- to-heart ratio is 0.4 (normal is less than 0.38 for tetrafosmin tracer). Left ventricle function: Gated images demonstrate normal left ventricle wall thickening. No segment al wall motion abnormality. No transient ischemic dilation; TID is 0.91 (normal less than 1.3). The left ventricle resting end-diastolic volume is 77 mL. Left ventricle stress ejection fraction is 80 %; normal values are above 45%. Myocardial perfusion: Motion degraded examination. There is a probable small moderate fixed mid to d istal inferolateral myocardial perfusion defect. No definite reversible perfusion defects are seen. IMPRESSION: Suboptimal evaluation due to uncorrectable motion artifact. Probable fixed, small mid-distal inferolateral perfusion defect suggestive of infarct. No definite re versible perfusion defects identified. PQRS ATTESTATIONS: Measure 322 - Is this imaging test primarily performed on a low-risk surgery patient for preoperative evaluation within 30 days preceding their low-risk non-cardiac surgery? Low-risk surgery is defined as cardiac or myocardial infarction less than 1%, including (but not limited to) endoscopic pr ocedures, superficial procedures, cataract surgery, and excisional breast surgery: Answer: No Measure 323 - Is this imaging test performed primarily for the monitoring of an asymptomatic patient who had percutaneous coronary intervention on the visit date or within 2 years of the visit date? An swer: No Measure 324 - Is this imaging test performed primarily for the initial detection and risk assessment on an asymptomatic, low coronary heart disease patient? Low CHD risk definition = clinicians should consider the maximum number of available patient factors used to estimate risk based on Kennan (A TP III criteria), typically age, gender, diabetes, smoking status, and use of blood pressure medicati on, and integrate age appropriate estimates for missing elements, such as LDL or standard blood press ure. Answer: No Reviewed by: James Hall MD on 05/25/2020 5:54 PM PDT Approved by: James Hall MD on 05/25/2020 5:54 PM PDT Station ID: [id number]
== END 2020-05-24 10:09 | disposition home or self-care (01) ==
LOC: DI 10:08
PROVIDERS: ATTEND Physician Assistant
DX: R07.9 Chest pain, unspecified (principal); Z82.49 Family history of ischemic heart disease and other diseases of the circulatory system
CPT/HCPCS: 78452; 93017; A9500; J2785

== ENCOUNTER 2020-06-06 08:00 | Outpatient (CLI) | payer MEDICARE, MEDICAID ==
[2020-06-06 18:59] LABS: ALBUMIN 3.6 g/dL (3.2-5.5); ALBUMIN/GLOBULIN RATIO 0.8 (1.0-2.2); ALKALINE PHOSPHATASE 77 IU/L (42-121); ALT ALANINE AMINOTRANSFERASE < 10 IU/L (10-60); AST ASPARTATE AMINOTRANSFERASE 14 IU/L (10-42); BILIRUBIN,TOTAL 0.5 mg/dL (0.2-1.0); BUN - BLOOD UREA NITROGEN 41 mg/dL (6-20); CALCIUM 9.3 mg/dL (8.5-10.3); CARBON DIOXIDE - CO2 24 mmol/L (21-32); CHLORIDE 106 mmol/L (101-111); CREATININE 1.5 mg/dL (0.4-1.0); GLUCOSE 106 mg/dL (70-100); SODIUM 139 mmol/L (135-145); TOTAL PROTEIN 7.9 g/dL (6.7-8.2)
[2020-06-06 19:13] LABS: BASOPHILS % (AUTO) 0.9 %; EOSINOPHILS % (AUTO) 10.6 %; HGB - HEMOGLOBIN 9.1 g/dL (12.0-16.0); LYMPHOCYTES % (AUTO) 27.9 %; MEAN CORPUSCULAR HEMOGLOBIN 27.5 pg (27.0-31.0); MEAN CORPUSCULAR HGB CONC 29.4 g/dL (32.0-36.0); MEAN CORPUSCULAR VOLUME 93.4 fL (81.0-99.0); MEAN PLATELET VOLUME 10.3 fL (7.9-10.8); MONOCYTES % (AUTO) 7.3 %; NEUTROPHILS % (AUTO) 52.8 %; PLT - PLATELET COUNT 309 10^3/uL (130-450); RED BLOOD COUNT 3.31 10^6/uL (4.20-5.40); RED CELL DISTRIBUTION WIDTH 15.1 % (12.0-15.0); WHITE BLOOD COUNT 11.8 x10^3/uL (4.8-10.8)
[2020-06-06 19:24] LABS: ABNORMAL LYMPHS % (MANUAL) 0 %
[2020-06-06 20:22] LABS: BAND NEUTROPHILS % (MANUAL) 3 %; EOSINOPHILS # (MANUAL) 1.7 10^3/uL (0-0.7); LYMPHOCYTES # (MANUAL) 3.2 10^3/uL (1.5-3.5); LYMPHOCYTES % (MANUAL) 27 %; MONOCYTES # (MANUAL) 0.5 10^3/uL (0.0-1.0)
[2020-06-06 20:24] LABS: PLATELET ESTIMATE, MANUAL NORMAL (130-450,000) (NORMAL); PLATELET MORPHOLOGY NORMAL APPEARANCE (NORMAL); RBC MORPHOLOGY (MULTIPLE) 1+ ANISOCYTOSIS (NORMAL)
[2020-06-06 20:25] LABS: DIFFERENTIAL COMMENT MANUAL DIFFERENTIAL
== END 2020-06-06 23:59 | disposition home or self-care (01) ==
LOC: LAB.WCP 08:00
PROVIDERS: ATTEND Physician Assistant
DX: N18.9 Chronic kidney disease, unspecified (principal)
CPT/HCPCS: 36415; 80053; 85025

== ENCOUNTER 2020-06-30 08:00 | Outpatient (CLI) | payer MEDICARE, MEDICAID | END 2020-06-30 23:59 | disposition home or self-care (01) | LOC: LAB.WCP 08:00 | PROVIDERS: ATTEND Physician Assistant | DX: Z20.828 Contact with and (suspected) exposure to other viral communicable diseases (principal) ==

== ENCOUNTER 2020-08-11 08:00 | Outpatient (CLI) | payer MEDICARE, MEDICAID | END 2020-08-11 23:59 | disposition home or self-care (01) | LOC: LAB.WCP 08:00 | PROVIDERS: ATTEND Obstetrics & Gynecology Gynecologic Oncology | DX: Z11.59 Encounter for screening for other viral diseases (principal); Z20.828 Contact with and (suspected) exposure to other viral communicable diseases ==

== ENCOUNTER 2020-09-15 08:00 | Outpatient (CLI) | payer MEDICARE, MEDICAID | END 2020-09-15 23:59 | disposition home or self-care (01) | LOC: LAB.WCP 08:00 | PROVIDERS: ATTEND Obstetrics & Gynecology Gynecologic Oncology | DX: Z11.59 Encounter for screening for other viral diseases (principal); Z20.822 Contact with and (suspected) exposure to COVID-19 ==

== ENCOUNTER 2020-10-03 08:00 | Outpatient (CLI) | payer MEDICARE, MEDICAID ==
[2020-10-03 18:11] LABS: BASOPHILS # (AUTO) 0.1 10^3/uL (0.0-0.1); BASOPHILS % (AUTO) 0.7 %; EOSINOPHILS # (AUTO) 0.9 10^3/uL (0.0-0.7); EOSINOPHILS % (AUTO) 9.6 %; HGB - HEMOGLOBIN 8.3 g/dL (12.0-16.0); LYMPHOCYTES # (AUTO) 2.4 10^3/uL (1.5-3.5); LYMPHOCYTES % (AUTO) 25.1 %; MEAN CORPUSCULAR HEMOGLOBIN 25.5 pg (27.0-31.0); MEAN CORPUSCULAR HGB CONC 28.3 g/dL (32.0-36.0); MEAN CORPUSCULAR VOLUME 90.2 fL (81.0-99.0); MEAN PLATELET VOLUME 10.4 fL (7.9-10.8); MONOCYTES # (AUTO) 0.9 10^3/uL (0.0-1.0); MONOCYTES % (AUTO) 9.1 %; NEUTROPHILS # (AUTO) 5.3 10^3/uL (1.5-6.6); NEUTROPHILS % (AUTO) 55.1 %; PLT - PLATELET COUNT 286 10^3/uL (130-450); RED BLOOD COUNT 3.25 10^6/uL (4.20-5.40); RED CELL DISTRIBUTION WIDTH 15.2 % (12.0-15.0); WHITE BLOOD COUNT 9.6 x10^3/uL (4.8-10.8)
[2020-10-03 18:39] LABS: PLATELET ESTIMATE, MANUAL NORMAL (130-450,000) (NORMAL); PLATELET MORPHOLOGY NORMAL APPEARANCE (NORMAL)
[2020-10-03 18:41] LABS: ALBUMIN 3.3 g/dL (3.2-5.5); ALBUMIN/GLOBULIN RATIO 0.8 (1.0-2.2); BILIRUBIN,TOTAL 0.3 mg/dL (0.2-1.0); CALCIUM 9.4 mg/dL (8.5-10.3); CREATININE 1.5 mg/dL (0.4-1.0); TOTAL PROTEIN 7.4 g/dL (6.7-8.2)
== END 2020-10-03 23:59 | disposition home or self-care (01) ==
LOC: LAB.WCP 08:00
PROVIDERS: ATTEND Physician Assistant
DX: R53.83 Other fatigue (principal); C54.1 Malignant neoplasm of endometrium
CPT/HCPCS: 36415; 80053; 82728; 83540; 84466; 85025

== ENCOUNTER 2020-10-13 18:16 | Outpatient (CLI) | payer MEDICARE, MEDICAID ==
--- NOTE | 2020-10-13 16:37 | XRAY Report ---
PROCEDURE: Knee 4 View LT INDICATIONS: KNEE PAIN, LEFT TECHNIQUE: 6 views of the left knee are obtained. COMPARISON: None. FINDINGS: Bones: No fractures or dislocations. No suspicious bony lesions. Severe tricompartmental periartic ular osteophyte formation is present. Soft tissues: No joint effusion. No suspicious soft tissue calcifications. IMPRESSION: Osteoarthritis. No acute fracture. No osseous lesion. If symptoms and/or clinical suspic ion for pathology continue, further assessment with repeat plain films, or advanced imaging (e.g., CT , MRI, or bone scan) is recommended for further assessment. Reviewed by: Oracio West MD on 10/13/2020 4:36 PM PST Approved by: Oracio West MD on 10/13/2020 4:36 PM PST Station ID: [id number]
--- NOTE | 2020-10-13 16:38 | XRAY Report ---
PROCEDURE: Hip w/Pelvis 2-3V LT INDICATIONS: PAIN IN LEFT HIP TECHNIQUE: AP pelvis with lateral view(s) of the bilateral hip(s). COMPARISON: None. FINDINGS: Bones: No fractures or dislocations. Pelvic ring appears intact. No suspicious bony lesions. Aniya re left hip joint space narrowing and periarticular osteophyte formation. Left hip acetabuli protrusi o is present. Soft tissues: The visualized bowel gas pattern is normal. No suspicious soft tissue calcifications. 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 Reviewed by: Oracio West MD on 10/13/2020 4:37 PM PST Approved by: Oracio West MD on 10/13/2020 4:37 PM PST Station ID: [id number]
== END 2020-10-13 23:59 | disposition home or self-care (01) ==
LOC: DI.N 18:16
PROVIDERS: ATTEND Orthopaedic Surgery
DX: M17.12 Unilateral primary osteoarthritis, left knee (principal); M16.12 Unilateral primary osteoarthritis, left hip; M24.7 Protrusio acetabuli

== ENCOUNTER 2020-11-24 15:03 | Outpatient (CLI) | payer MEDICARE, MEDICAID | END 2020-11-24 15:04 | disposition critical access hospital (66) | LOC: EMS 15:03 | PROVIDERS: ATTEND Emergency Medicine | DX: N93.9 Abnormal uterine and vaginal bleeding, unspecified (principal) | CPT/HCPCS: A0425; A0429 ==

== ENCOUNTER 2020-11-24 15:22 | Emergency (ER) | payer MEDICARE, MEDICAID ==
[2020-11-24] MEDS ORDERED: IOVERSOL 320 100 ML VIAL IVP ONE (15:48)
--- NOTE | 2020-11-24 15:48 | ED Physician Documentation ---
History of Present Illness - Stated complaint Stated Complaint: N/V - Chief complaint Chief Complaint: Abd Pain - History obtained from History obtained from: Patient - History of Present Illness Timing: Today Pain level max: 6 Pain level now: 4 - Additonal information Additional information: 65-year-old female presents to the emergency department with intermittent nausea and vomiting for the past 2 months. She states that she is status post a abdominal hysterectomy at [facility] in [place] in September of this year. She states she still has occasional vaginal bleeding. She states it is mostly spotting, sometimes will fill up a pad. Nothing seems to make it better or worse. She states she is not currently bleeding. Today she states she is having worsening abdominal pain and cramping. No fevers. No chills. She has had diarrhea as well. No constipation. She states she is not currently nauseated or vomiting. Rates the pain as a 5-6 out of 10. Described as crampy, mainly in the left lower quadrant. She has not followed up with her surgeon or media assistant, Dr. Leon Review of Systems Ten Systems: 10 systems reviewed and negative Constitutional: denies: Fever, Chills Respiratory: denies: Cough GI: reports: Abdominal Pain (crampy), Nausea, Vomiting, Diarrhea. denies: Hematemesis, Bloody / black stool : denies: Dysuria, Frequency, Hesitancy, Hematuria Skin: denies: Rash Musculoskeletal: denies: Neck pain, Back pain Neurologic: denies: Headache PD PAST MEDICAL HISTORY - Past Medical History Past Medical History: Yes Cardiovascular: Hypertension, High cholesterol Respiratory: Asthma Neuro: None Endocrine/Autoimmune: None GI: None SUPERVISOR RIVETING: None : Renal insuffiency HEENT: None Psych: Depression Musculoskeletal: Osteoarthritis Derm: None - Past Surgical History Past Surgical History: Yes General: Colonoscopy Ortho: Knee replacement /SUPERVISOR RIVETING: Hysterectomy - Present Medications Home Medications: Ambulatory Orders Medication Instructions Recorded Confirmed Acetaminophen [Tylenol] 650 mg PO TID PRN 05/05/20 11/24/20 Albuterol Sulfate [Albuterol 2 puffs PO Q4HR PRN 05/05/20 11/24/20 Sulfate Hfa] Aspirin [Aspirin EC] 81 mg PO DAILY 05/05/20 11/24/20 Biostolic 5 mg PO DAILY 05/05/20 11/24/20 Citalopram Hydrobromide 10 mg PO DAILY 05/05/20 11/24/20 [Citalopram HBr] Diclofenac Sodium 75 mg PO BID 05/05/20 11/24/20 Docusate Sodium 100Mg Capsule 100 mg PO DAILY 05/05/20 11/24/20 [Colace 100Mg Capsule] Enalapril Maleate [Vasotec] 2.5 mg PO QPM 05/05/20 11/24/20 Extra Thick Antifungal 1 applic TD DAILY PRN 05/05/20 11/24/20 Methenamine/Sodium Salicylate [Azo 1 tab PO DAILY PRN 05/05/20 11/24/20 Urinary Tract Defense Tab] Miconazole Nitrate [Aloe [place]] 1 applic TD DAILY PRN 05/05/20 11/24/20 Omeprazole [PriLOSEC] 20 mg PO DAILY 05/05/20 11/24/20 Triamterene/Hydrochlorothiazid 1 cap PO DAILY 05/05/20 11/24/20 [Triamterene-Hctz 37.5-25 mg Cp] HYDROcod/ACETAM 5/325 [[place] 5/325] 1 tab PO Q6HR PRN 06/08/20 11/24/20 Loperamide HCl [Imodium A-D] 1 tab PO PRN PRN 06/08/20 11/24/20 Magnesium Oxide [Magnesium] 400 cap PO DAILY PRN 06/08/20 11/24/20 Ondansetron HCl [Zofran] 4 mg PO Q8HR PRN 06/08/20 11/24/20 Cefpodoxime Proxetil [Vantin] 100 mg PO Q12H #14 tablet 11/24/20 Ondansetron Odt [Zofran] 4 mg TL Q6H PRN #10 tablet 11/24/20 - Allergies Allergies/Adverse Reactions: Allergies Allergy/AdvReac Type Severity Reaction Status Date / Time azithromycin Allergy Hives Verified 11/24/20 15:29 mupirocin [From Bactroban] Allergy Rash Verified 11/24/20 15:29 Penicillins Allergy Hives Verified 11/24/20 15:29 strawberry Allergy Hives Verified 11/24/20 15:29 Tetanus Vaccines and Toxoid Allergy Unknown Verified 11/24/20 15:29 walnut Allergy Hives Verified 11/24/20 15:29 - Social History Does the pt smoke?: No Smoking Status: Never smoker Does the pt drink ETOH?: No Does the pt have substance abuse?: Yes - Immunizations Immunizations are current?: Yes PD ED PE NORMAL - Vitals Vital signs reviewed: Yes - General General: Alert and oriented X 3, No acute distress, Well developed/nourished - HEENT HEENT: PERRL, Moist mucous membranes - Neck Neck: Supple, no meningeal sign - Cardiac Cardiac: RRR, Strong equal pulses - Respiratory Respiratory: No respiratory distress, Clear bilaterally - Abdomen Abdomen: Normal bowel sounds, Soft, Non tender, Non distended - Derm Derm: Warm and dry - Extremities Extremities: No calf tenderness / cord - Neuro Neuro: Alert and oriented X 3 - Psych Psych: Normal mood, Normal affect Results - Vitals Vitals: Vital Signs - 24 hr 11/24/20 11/24/20 11/24/20 15:29 15:33 17:32 Temperature 37.1 C Heart Rate 66 57 L 60 Respiratory 18 16 16 Rate Blood Pressure 129/101 H 137/59 H 156/61 H O2 Saturation 98 98 100 11/24/20 18:46 Temperature 37.0 C Heart Rate 62 Respiratory 16 Rate Blood Pressure 150/60 H O2 Saturation 100 Oxygen O2 Source Room air - Labs Labs: Laboratory Tests 11/24/20 11/24/20 11/24/20 15:42 16:08 16:08 WBC 8.8 RBC 3.40 L Hgb 9.0 L Hct 30.4 L MCV 89.4 MCH 26.5 L MCHC 29.6 L RDW 16.9 H Plt Count 203 MPV 10.9 H Neut # (Auto) 5.3 Lymph # (Auto) 2.3 [place] # (Auto) 0.7 Eos # (Auto) 0.4 Baso # (Auto) 0.1 Absolute Nucleated RBC 0.00 Nucleated RBC % 0.0 Sodium 138 Potassium 4.5 Chloride 102 Carbon Dioxide 25 Anion Gap 11.0 BUN 39 H Creatinine 1.9 H Estimated GFR (MDRD) 26 L Glucose 107 H Calcium 9.0 Total Bilirubin 0.6 AST 22 ALT 17 Alkaline Phosphatase 137 H Total Protein 6.3 L Albumin 2.8 L Globulin 3.5 Albumin/Globulin Ratio 0.8 L Lipase 36 Urine Color RED/BLOODY Urine Clarity BLOODY Urine pH 6.0 Ur Specific [place] 1.025 Urine Protein 100 H Urine Glucose (UA) NEGATIVE Urine Ketones NEGATIVE Urine Occult Blood LARGE H Urine Nitrite NEGATIVE Urine Bilirubin NEGATIVE Urine Urobilinogen 0.2 (NORMAL) Ur Leukocyte Esterase SMALL H Urine RBC TNTC H Urine WBC >25 H Ur Squamous Epith Cells NONE SEEN Urine Bacteria Rare Ur Microscopic Review INDICATED Urine Culture Comments INDICATED - Rads (name of study) CT abd/pelvis Radiology: Prelim report reviewed, EMP read contemporaneously, See rad report PD MEDICAL DECISION MAKING - ED course Complexity details: reviewed results, re-evaluated patient, considered differential, d/w patient ED course: Patient is well-appearing, nontoxic. Afebrile. She has a UTI with hematuria, this may be what she is perceiving to be vaginal bleeding. Declines a pelvic exam, she will follow up with her surgeon for this. No acute findings on CT scan. Given Rocephin. Will place on Cefpodoxime for home. Has multiple allergies to medications. No evidence of sepsis. No evidence of bowel obstruction. Tolerating p.o. without difficulty here. Patient counseled regarding signs and symptoms for which I believe and urgent re-evaluation would be necessary. Patient with good understanding of and agreement to plan and is comfortable going home at this time This document was made in part using voice recognition software. While efforts are made to proofread this document, sound alike and grammatical errors may occur. IMPRESSION: 1. No bowel obstruction. No abnormal bowel wall thickening. No free fluid or free air. Normal appendix. 2. Left renal cyst unchanged from prior study. No renal stone or hydronephrosis. 3. Small hypodense areas in left hepatic lobe as described above likely represent hepatic cysts. 4. Small umbilical hernia containing fat only. 5. Degenerative disc disease throughout lumbar spine. No acute compression fracture. Departure - Departure Disposition: 01 Home, Self Care Clinical Impression: UTI (urinary tract infection) Qualifiers: Urinary tract infection type: acute cystitis Hematuria presence: with hematuria Qualified Code(s): N30.01 - Acute cystitis with hematuria Condition: Good Instructions: ED UTI Cystitis Female Follow-Up: your,doctor in 1 week [Other] Prescriptions: Cefpodoxime Proxetil [Vantin] 100 mg PO Q12H #14 tablet Ondansetron Odt [Zofran] 4 mg TL Q6H PRN #10 tablet PRN Reason: Nausea / Vomiting Comments: Drink plenty of fluids. Return if you worsen. Take all antibiotics until gone. Your CT scan does not show any acute abnormalities nor does your blood work. Use the medications as prescribed. Take your antibiotic on an empty stomach. Otherwise it may react with your omeprazole. Discharge Date/Time: 11/24/20 18:46
[2020-11-24 16:10] LABS: BILIRUBIN,URINE NEGATIVE (NEGATIVE); GLUCOSE, URINE (UA) NEGATIVE (NEGATIVE); KETONES,URINE (UA) NEGATIVE (NEGATIVE); LEUKOCYTE ESTERASE, URINE SMALL (NEGATIVE); NITRITE,URINE NEGATIVE (NEGATIVE); OCCULT BLOOD,URINE LARGE (NEGATIVE); PROTEIN,URINE 100 mg/dL (NEGATIVE); UROBILINOGEN,URINE 0.2 (NORMAL) E.U./dL (NORMAL)
[2020-11-24 16:14] LABS: BASOPHILS # (AUTO) 0.1 10^3/uL (0.0-0.1); EOSINOPHILS # (AUTO) 0.4 10^3/uL (0.0-0.7); EOSINOPHILS % (AUTO) 4.8 %; HCT - HEMATOCRIT 30.4 % (37.0-47.0); LYMPHOCYTES # (AUTO) 2.3 10^3/uL (1.5-3.5); LYMPHOCYTES % (AUTO) 25.8 %; MEAN CORPUSCULAR HEMOGLOBIN 26.5 pg (27.0-31.0); MEAN CORPUSCULAR HGB CONC 29.6 g/dL (32.0-36.0); MEAN CORPUSCULAR VOLUME 89.4 fL (81.0-99.0); MEAN PLATELET VOLUME 10.9 fL (7.9-10.8); MONOCYTES # (AUTO) 0.7 10^3/uL (0.0-1.0); MONOCYTES % (AUTO) 7.9 %; NEUTROPHILS # (AUTO) 5.3 10^3/uL (1.5-6.6); NEUTROPHILS % (AUTO) 60.3 %; PLT - PLATELET COUNT 203 10^3/uL (130-450); RED CELL DISTRIBUTION WIDTH 16.9 % (12.0-15.0); WHITE BLOOD COUNT 8.8 x10^3/uL (4.8-10.8)
[2020-11-24 16:15] LABS: BACTERIA,URINE Rare /HPF (None Seen); CLARITY,URINE BLOODY (CLEAR); RBC,URINE TNTC /HPF (0-5); SQUAMOUS EPITHELIAL CELL,UR NONE SEEN (<= Few); WBC,URINE >25 /HPF (0-5)
[2020-11-24 16:27] LABS: ALBUMIN 2.8 g/dL (3.2-5.5); ALBUMIN/GLOBULIN RATIO 0.8 (1.0-2.2); BILIRUBIN,TOTAL 0.6 mg/dL (0.2-1.0); CREATININE 1.9 mg/dL (0.4-1.0); POTASSIUM 4.5 mmol/L (3.5-5.0); TOTAL PROTEIN 6.3 g/dL (6.7-8.2)
[2020-11-24] MEDS ORDERED: SODIUM CHLORIDE 0.9% 1,000 ML IV STA ×2 (16:30)
--- NOTE | 2020-11-24 17:43 | CT Report ---
PROCEDURE: Abdomen/Pelvis WO INDICATIONS: diffuse abd pain, vomiting. TECHNIQUE: Noncontrast 5 mm thick sections acquired from the diaphragms to the symphysis. 5 mm coronal and sagi ttal reformats were then performed. For radiation dose reduction, the following was used: automated exposure control, adjustment of mA and/or kV according to patient size. COMPARISON: 06/25/2018 FINDINGS: Image quality: Excellent. ABDOMEN: Lung bases: Lung bases are clear. Heart size is normal. Solid organs: Liver is normal in size. 1.4 x 0.7 cm well-circumscribed area of hypodensity is seen in volving anterior periphery of left hepatic lobe lateral segment series 3 image 25. Tiny 3 mm hypodens ity is also seen involving medial segment of left hepatic lobe and is too small to characterize. Seri es 3 image 22. Gallbladder is surgically absent. Spleen is normal in size. Pancreas is normal in con tours. No adrenal nodules. Kidneys are normal in size, without hydronephrosis or nephrolithiasis. 4.2 x 4.7 cm hypodense area involving lower pole of left kidney is seen consistent with left renal cy sts unchanged from previous study in 2018. Peritoneum and bowel: Unenhanced bowel loops demonstrate normal wall thickness and caliber. No free fluid or air. Appendix is visualized and is within normal limits. Nodes and vessels: No retroperitoneal or mesenteric adenopathy by size criteria. Aorta and inferior vena cava are normal in caliber. Miscellaneous: Small umbilical hernia is seen containing fat only. PELVIS: Genitourinary: There is mild diffuse bladder wall thickening, no discrete bladder wall mass. Patient is status post hysterectomy. Miscellaneous: No inguinal hernias or adenopathy. Bones: No suspicious bony lesions. No vertebral body compression fractures. Degenerative disc dise ase throughout lumbar spine is seen. Is minimal anterolisthesis of L2 on L3 is noted. IMPRESSION: 1. No bowel obstruction. No abnormal bowel wall thickening. No free fluid or free air. Normal appendi x. 2. Left renal cyst unchanged from prior study. No renal stone or hydronephrosis. 3. Small hypodense areas in left hepatic lobe as described above likely represent hepatic cysts. 4. Small umbilical hernia containing fat only. 5. Degenerative disc disease throughout lumbar spine. No acute compression fracture. Reviewed by: Puma Hough MD on 11/24/2020 5:42 PM PDT Approved by: Puma Hough MD on 11/24/2020 5:42 PM PDT Station ID: [id number]
[2020-11-24] MEDS ORDERED: cefTRIAXone 1 GM VIAL IVP STA (17:57)
[2020-11-24] MEDS ORDERED: cefTRIAXone 1 GM VIAL IM STA (18:19)
[2020-11-24] MEDS ORDERED: LIDOCAINE 1% 2 ML VIAL MC ONE (18:19)
[2020-11-24 18:47] VITALS: BP 150/60
== END 2020-11-24 18:46 | disposition home or self-care (01) ==
LOC: EDUNIT# → ED 15:22
DX: N30.01 Acute cystitis with hematuria (principal); Z88.0 Allergy status to penicillin; Z88.1 Allergy status to other antibiotic agents; N28.1 Cyst of kidney, acquired; K42.9 Umbilical hernia without obstruction or gangrene; M51.36 Other intervertebral disc degeneration, lumbar region; I10 Essential (primary) hypertension; Z79.82 Long term (current) use of aspirin; Z90.710 Acquired absence of both cervix and uterus
CPT/HCPCS: 36415; 80053; 81001; 81003; 83690; 85025; 87086; 96372; 99284

== ENCOUNTER 2021-01-23 07:39 | Outpatient (CLI) | payer MEDICARE, MEDICAID ==
[2021-01-23 12:44] LABS: ABSOLUTE RETICS # AUTO 0.065 10^6/uL (0.020-0.110); BASOPHILS # (AUTO) 0.1 10^3/uL (0.0-0.1); BASOPHILS % (AUTO) 1.5 %; EOSINOPHILS # (AUTO) 0.7 10^3/uL (0.0-0.7); EOSINOPHILS % (AUTO) 10.8 %; HGB - HEMOGLOBIN 8.1 g/dL (12.0-16.0); LYMPHOCYTES # (AUTO) 1.6 10^3/uL (1.5-3.5); LYMPHOCYTES % (AUTO) 26.1 %; MEAN CORPUSCULAR HEMOGLOBIN 27.1 pg (27.0-31.0); MEAN CORPUSCULAR VOLUME 90.3 fL (81.0-99.0); MONOCYTES # (AUTO) 0.6 10^3/uL (0.0-1.0); MONOCYTES % (AUTO) 9.7 %; NEUTROPHILS # (AUTO) 3.2 10^3/uL (1.5-6.6); NEUTROPHILS % (AUTO) 51.7 %; PLT - PLATELET COUNT 314 10^3/uL (130-450); RED BLOOD COUNT 2.99 10^6/uL (4.20-5.40); RED CELL DISTRIBUTION WIDTH 14.5 % (12.0-15.0); RETICULOCYTE COUNT % (AUTO) 2.17 % (0.5-2.3); WHITE BLOOD COUNT 6.1 x10^3/uL (4.8-10.8)
[2021-01-23 12:49] LABS: BILIRUBIN,URINE NEGATIVE (NEGATIVE); GLUCOSE, URINE (UA) NEGATIVE (NEGATIVE); KETONES,URINE (UA) NEGATIVE (NEGATIVE); LEUKOCYTE ESTERASE, URINE LARGE (NEGATIVE); NITRITE,URINE POSITIVE (NEGATIVE); OCCULT BLOOD,URINE LARGE (NEGATIVE); PROTEIN,URINE 30 mg/dL (NEGATIVE); UROBILINOGEN,URINE 0.2 (NORMAL) E.U./dL (NORMAL)
[2021-01-23 12:55] LABS: BACTERIA,URINE Moderate /HPF (None Seen); CLARITY,URINE CLOUDY (CLEAR); RBC,URINE TNTC /HPF (0-5); SQUAMOUS EPITHELIAL CELL,UR FEW Squamous (<= Few); WBC,URINE >25 /HPF (0-5)
[2021-01-23 13:05] LABS: CREATININE,URINE 120.8 mg/dL; MICROALBUM/CREATININE RATIO,UR 210.3 ug/mg (<30.0); MICROALBUMIN,URINE 25.4 mg/dL (0-300.0); PROTEIN/CREATININE RATIO,URINE 0.8 (<=0.2)
[2021-01-23 13:10] LABS: THYROID STIMULATING HORMONE 1.87 uIU/mL (0.34-5.60)
[2021-01-23 13:16] LABS: FERRITIN 8.4 ng/mL (11.0-306.8)
[2021-01-23 13:31] LABS: % IRON SATURATION 8 % (20-50); ALBUMIN 3.7 g/dL (3.2-5.5); ALBUMIN/GLOBULIN RATIO 0.9 (1.0-2.2); ALKALINE PHOSPHATASE 90 IU/L (42-121); ALT ALANINE AMINOTRANSFERASE < 10 IU/L (10-60); AST ASPARTATE AMINOTRANSFERASE 14 IU/L (10-42); BILIRUBIN,TOTAL 0.5 mg/dL (0.2-1.0); BUN - BLOOD UREA NITROGEN 21 mg/dL (6-20); CALCIUM 9.2 mg/dL (8.5-10.3); CARBON DIOXIDE - CO2 25 mmol/L (21-32); CHLORIDE 105 mmol/L (101-111); CHOL/HDL RATIO 5.2 (<4.4); CHOLESTEROL 192 mg/dL; CREATININE 1.6 mg/dL (0.4-1.0); GFR - MDRD 32 (>89); GLUCOSE 103 mg/dL (70-100); HDL CHOLESTEROL 37 mg/dL; IRON 30 ug/dL (28-170); LDL CHOLESTEROL,CALCULATED 114 mg/dL; LDL/HDL RATIO 3.1 (<4.4); SODIUM 140 mmol/L (135-145); TOTAL IRON BINDING CAPACITY 374 ug/dL (250-450); TOTAL PROTEIN 7.7 g/dL (6.7-8.2); TRANSFERRIN 267 mg/dL (192-382); TRIGLYCERIDES 206 mg/dL; VLDL CHOLESTEROL 41 mg/dL
[2021-01-23 13:38] LABS: ESTIMATED AVERAGE GLUCOSE 103 mg/dL (70-100); HEMOGLOBIN A1c% 5.2 % (4.27-6.07)
[2021-01-24 12:00] LABS: HEPATITIS B CORE AB TOTAL NON-REACTIVE (NON-REACTIVE); HEPATITIS C ANTIBODY NON-REACTIVE (NON-REACTIVE)
[2021-01-24 13:32] LABS: HEPATITIS B SURFACE ANTIGEN NON-REACTIVE (NON-REACTIVE)
[2021-01-30 13:16] LABS: KAPPA/LAMBDA LC FREE RATIO 2.23 (0.26-1.65)
== END 2021-01-23 07:40 | disposition home or self-care (01) ==
LOC: LAB.N 07:39
PROVIDERS: ATTEND Internal Medicine
DX: N18.32 Chronic kidney disease, stage 3b (principal); I25.2 Old myocardial infarction; D50.9 Iron deficiency anemia, unspecified; R53.83 Other fatigue
CPT/HCPCS: 36415; 80053; 80061; 81001; 81599; 82043; 82570; 82668; 82728; 83036; 83540; 83721; 83883; 84156; 84443; 84466; 85025; 85045; 86334; 86704; 86803; 87086; 87340

== ENCOUNTER 2021-03-02 11:26 | Outpatient (CLI) | payer MEDICARE, MEDICAID | END 2021-03-02 11:27 | disposition home or self-care (01) | LOC: LAB 11:26 | PROVIDERS: ATTEND Internal Medicine | DX: Z01.812 Encounter for preprocedural laboratory examination (principal); D64.9 Anemia, unspecified; Z86.010 Personal history of colon polyps | CPT/HCPCS: 87640 ==

== ENCOUNTER 2021-04-13 11:43 | Day surgery (SDC) | payer MEDICARE, MEDICAID ==
--- NOTE | 2021-04-13 11:38 | ANESTHESIA ---
Pre-Anesthesia VS, & Labs - Diagnosis anemia, hx polyps - Procedure egd, cscope Vital Signs: Last Vital Signs Temp 36.7 C 04/13/21 12:02 Pulse 55 L 04/13/21 12:02 Resp 12 04/13/21 12:02 BP 134/96 H 04/13/21 12:02 Pulse Ox 98 04/13/21 12:02 Height: 5 ft 7 in - NPO >8 hours - Is Patient ?: No - Lab Results Lab results reviewed: Yes Home Medications and Allergies Acetaminophen [Tylenol] 650 mg PO TID PRN 05/05/20 Albuterol Sulfate [Albuterol Sulfate Hfa] 2 puffs PO Q4HR PRN 05/05/20 Aspirin [Aspirin EC] 81 mg PO DAILY 05/05/20 Citalopram Hydrobromide [Citalopram HBr] 10 mg PO DAILY 05/05/20 Docusate Sodium 100Mg Capsule [Colace 100Mg Capsule] 100 mg PO DAILY 05/05/20 Extra Thick Antifungal 1 applic TD DAILY PRN 05/05/20 Methenamine/Sodium Salicylate [Azo Urinary Tract Defense Tab] 1 tab PO DAILY PRN 05/05/20 Miconazole Nitrate [Aloe [place]] 1 applic TD DAILY PRN 05/05/20 Omeprazole [PriLOSEC] 20 mg PO DAILY 05/05/20 Loperamide HCl [Imodium A-D] 1 tab PO PRN PRN 06/08/20 Magnesium Oxide [Magnesium] 400 cap PO DAILY PRN 06/08/20 Ondansetron HCl [Zofran] 4 mg PO Q8HR PRN 06/08/20 Nebivolol HCl [Bystolic] 5 mg PO DAILY 02/27/21 polyethylene glycoL 3350 [Miralax] 17 gm PO DAILY PRN 02/27/21 Allergies/Adverse Reactions: Allergies Allergy/AdvReac Type Severity Reaction Status Date / Time azithromycin Allergy Hives Verified 11/24/20 15:29 erythromycin base Allergy Unknown Verified 02/27/21 10:45 mupirocin [From Bactroban] Allergy Rash Verified 11/24/20 15:29 Penicillins Allergy Hives Verified 11/24/20 15:29 strawberry Allergy Hives Verified 11/24/20 15:29 Tetanus Vaccines and Toxoid Allergy Unknown Verified 11/24/20 15:29 walnut Allergy Hives Verified 11/24/20 15:29 Anes History & Medical History - Anesthetic History Anesthesia Complications: reports: No previous complications Family history of Anesthesia Complications: Denies Family history of Malignant Hyperthermia: Denies - Medical History Cardiovascular: reports: Hypertension, High cholesterol, [place], Atrial fibrillation Pulmonary: reports: Asthma, Shortness of breath, Sleep apnea, Other Gastrointestinal: reports: GERD, Ulcers, Colon polyps Urinary: reports: Incontinence, Chronic bladder infection, Renal insuffiency Neuro: reports: None Musculoskeletal: reports: Osteoarthritis, Chronic back pain, Other Endocrine/Autoimmune: reports: None Blood Disorders: reports: None Skin: reports: None Smoking Status: Never smoker - Surgical History General: reports: Cholecystectomy, Colonoscopy Eyes Ears Nose Throat (EENT): reports: Tonsil/Adenoidectomy Gynecologic: reports: Tubal ligation, Hysterectomy Orthopedic: reports: Knee replacement, Arthroscopic surgery, Spine surgery, Amputation Exam General: Alert, Oriented x3 Dental: Dentures full Upper, Dentures full Lower Mouth Openin Fingerbreadth Neck Mobility: Normal Mallampati classification: II Thyromental Distance: 4-6 cm Respiratory: Lungs clear, Normal breath sounds, No respiratory distress Cardiovascular: Regular rate (paramjit) Neurological: Normal speech Mental/Cognitive Status: Alert/Oriented X3, Normal for patient Cognitive Status: Within normal limits Plan Anesthesia Type: Total IV Consent for Procedure(s) Verified and Reviewed: Yes Code Status: Attempt Resuscitation ASA classification: 3-Severe systemic disease Is this case an emergency?: No
[2021-04-13] MEDS ORDERED: PROPOFOL 200 MG/20 ML VIAL IVP ONE ×2 (11:45→13:10)
[2021-04-13] MEDS ORDERED: SODIUM CHLORIDE 0.9% 10 ML VIAL IVP ONE (11:47)
[2021-04-13] MEDS ORDERED: MIDAZOLAM 2 MG/2 ML VIAL ONE (11:47)
[2021-04-13] MEDS ORDERED: KETAMINE 500 MG/10 ML VIAL ONE (11:47)
[2021-04-13] MEDS ORDERED: LACTATED RINGERS 1,000 ML IV ONE ×2 (12:21→13:20)
[2021-04-13] MEDS ORDERED: LIDO GARGLE 30 ML BOTTLE ONE (12:23)
[2021-04-13] MEDS ORDERED: GLYCOPYRROLATE 1 MG/5 ML VIAL ONE (12:47)
[2021-04-13 13:34] VITALS: BP 157/63
--- NOTE | 2021-04-13 13:57 | ANESTHESIA POST OP EVALUATION ---
Anesthesia Post Eval - Post Anesthesia Eval Vitals: Last Vital Signs Temp 36.9 C 04/13/21 13:20 Pulse 63 04/13/21 13:33 Resp 16 04/13/21 13:33 BP 157/63 H 04/13/21 13:33 Pulse Ox 98 04/13/21 13:33 CV Function Including HR & BP: Stable Pain Control: Satisfactory Nausea & Vomiting: Negative Mental Status: Baseline Respiratory Status: Airway Patent Hydration Status: Satisfactory Anesthesia Complications: None
== END 2021-04-13 11:44 | disposition home or self-care (01) ==
LOC: SDS 11:43
PROVIDERS: ATTEND Surgery
PROC: 0DB68ZX Excision of Stomach, Via Natural or Artificial Opening Endoscopic, Diagnostic (ICD-10-PCS; 2021-04-13)
PROC: 0DB58ZX Excision of Esophagus, Via Natural or Artificial Opening Endoscopic, Diagnostic (ICD-10-PCS; 2021-04-13)
PROC: 0DJD8ZZ Inspection of Lower Intestinal Tract, Via Natural or Artificial Opening Endoscopic (ICD-10-PCS; principal; 2021-04-13 11:00)
PROC: 0DB98ZX Excision of Duodenum, Via Natural or Artificial Opening Endoscopic, Diagnostic (ICD-10-PCS; 2021-04-13 11:00)
DX: D64.9 Anemia, unspecified (principal); K29.50 Unspecified chronic gastritis without bleeding; K57.30 Diverticulosis of large intestine without perforation or abscess without bleeding; K64.8 Other hemorrhoids; K64.4 Residual hemorrhoidal skin tags; K21.9 Gastro-esophageal reflux disease without esophagitis; I48.91 Unspecified atrial fibrillation; G47.33 Obstructive sleep apnea (adult) (pediatric); Z86.010 Personal history of colon polyps
CPT/HCPCS: 43239; 45378; A9270; J7120

== ENCOUNTER 2021-05-03 15:26 | Outpatient (CLI) | payer MEDICARE, MEDICAID ==
[2021-05-03 18:30] LABS: ABSOLUTE RETICS # AUTO 0.055 10^6/uL (0.020-0.110); BASOPHILS # (AUTO) 0.1 10^3/uL (0.0-0.1); BASOPHILS % (AUTO) 1.2 %; EOSINOPHILS # (AUTO) 0.4 10^3/uL (0.0-0.7); EOSINOPHILS % (AUTO) 5.2 %; HCT - HEMATOCRIT 30.9 % (37.0-47.0); HGB - HEMOGLOBIN 8.8 g/dL (12.0-16.0); LYMPHOCYTES # (AUTO) 2.4 10^3/uL (1.5-3.5); LYMPHOCYTES % (AUTO) 35.1 %; MEAN CORPUSCULAR HEMOGLOBIN 24.1 pg (27.0-31.0); MEAN CORPUSCULAR HGB CONC 28.5 g/dL (32.0-36.0); MEAN CORPUSCULAR VOLUME 84.7 fL (81.0-99.0); MONOCYTES # (AUTO) 0.5 10^3/uL (0.0-1.0); MONOCYTES % (AUTO) 7.9 %; NEUTROPHILS # (AUTO) 3.4 10^3/uL (1.5-6.6); NEUTROPHILS % (AUTO) 50.5 %; PLT - PLATELET COUNT 263 10^3/uL (130-450); RED BLOOD COUNT 3.65 10^6/uL (4.20-5.40); RED CELL DISTRIBUTION WIDTH 18.2 % (12.0-15.0); RETICULOCYTE COUNT % (AUTO) 1.51 % (0.5-2.3); WHITE BLOOD COUNT 6.8 x10^3/uL (4.8-10.8)
[2021-05-03 19:21] LABS: CALCIUM 9.4 mg/dL (8.5-10.3); CREATININE 1.3 mg/dL (0.4-1.0); POTASSIUM 4.5 mmol/L (3.5-5.0)
== END 2021-05-03 23:59 | disposition home or self-care (01) ==
LOC: LAB.WCP 15:26
PROVIDERS: ATTEND Internal Medicine
DX: N18.32 Chronic kidney disease, stage 3b (principal); D50.9 Iron deficiency anemia, unspecified; C54.1 Malignant neoplasm of endometrium; L98.499 Non-pressure chronic ulcer of skin of other sites with unspecified severity
CPT/HCPCS: 36415; 80048; 82728; 83540; 84466; 85025; 85045; 85651; 86140

== ENCOUNTER 2021-05-23 10:50 | Outpatient (CLI) | payer MEDICARE, MEDICAID ==
[2021-05-23] MEDS ORDERED: GADOBUTROL 15 MMOL/15 ML VIAL ONE (11:25)
--- NOTE | 2021-05-23 13:49 | MRI Report ---
PROCEDURE: Foot RT W/WO INDICATIONS: SKIN ULCER CONTRAST: IV CONTRAST: Gadavist ml: 11 TECHNIQUE: Noncontrast sagittal T1 spin echo and T2 fast spin echo with fat saturation, long-axis T1 spin echo a nd T2 fast spin echo with fat saturation; short-axis T1 spin echo, proton density fast spin echo, and T2 fast spin echo with fat saturation through the forefoot. Post-contrast short axis, long axis, an d sagittal T1 spin echo with fat saturation through the forefoot. COMPARISON: None. FINDINGS: Image quality: Diagnostic, patient motion is noted. 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 There is marrow edema involving fourth and fifth metatarsal heads with subtle cortical erosion al melissa plantar and distal cortices of fourth and fifth metatarsal heads and shows mild contrast enhancem ent consistent with osteomyelitis. No acute fracture or dislocation. Moderate hallux valgus is seen. Osteoarthritic changes are noted in first MTP joint and first interphalangeal joint. Soft tissues: Full-thickness ulceration over plantar aspect of lateral forefoot stump is seen adjacen t to fifth metatarsal head. There is extensive soft tissue swelling and edema adjacent to fifth metat arsal head and show heterogeneous contrast enhancement. No discrete drainable abscess collection is s een. Rest of the visualized plantar foot muscles demonstrate normal signal and bulk. Visualized flex or and extensor tendons appear intact, without tenosynovitis. The distal insertions of the peroneus brevis and longus tendons appear intact. The principal Lisfranc ligament appears intact. IMPRESSION: 1. Prior fixation of forefoot at the level of second through fifth MTP joints. Moderate hallux valgus . Right great toe osteoarthritis. No fracture or dislocation. 2. Full-thickness ulceration involving plantar aspect of fifth metatarsal head with extensive surroun ding cellulitis. No discrete drainable abscess collection is seen. 3. Suggestion of osteomyelitis involving fourth and fifth metatarsal heads. Reviewed by: Puma Hough MD on 05/23/2021 1:47 PM PDT Approved by: Puma Hough MD on 05/23/2021 1:47 PM PDT Station ID: [id number]
[2021-05-23] MEDS ORDERED: GADOBUTROL 15 MMOL/15 ML VIAL IVP ONE (17:11)
== END 2021-05-23 10:51 | disposition home or self-care (01) ==
LOC: DI 10:50
PROVIDERS: ATTEND Internal Medicine
DX: M20.11 Hallux valgus (acquired), right foot (principal); M19.071 Primary osteoarthritis, right ankle and foot; L03.031 Cellulitis of right toe; Z89.421 Acquired absence of other right toe(s); L98.499 Non-pressure chronic ulcer of skin of other sites with unspecified severity
CPT/HCPCS: 73720; A9585

== ENCOUNTER 2021-06-05 10:00 | Outpatient (CLI) | payer MEDICARE, MEDICAID | END 2021-06-05 23:59 | LOC: LAB.WCP 10:00 | PROVIDERS: ATTEND Internal Medicine | DX: N18.32 Chronic kidney disease, stage 3b (principal) | CPT/HCPCS: 81599; 82570; 84156; 84166 ==

== ENCOUNTER 2021-06-25 19:19 | Outpatient (CLI) | payer MEDICARE, MEDICAID | END 2021-06-25 19:20 | disposition critical access hospital (66) | LOC: EMS 19:19 | DX: R50.9 Fever, unspecified (principal); R53.1 Weakness | CPT/HCPCS: A0425; A0429 ==

== ENCOUNTER 2021-06-25 19:54 | Emergency (ER) | payer MEDICARE, MEDICAID ==
[2021-06-25 20:45] LABS: BASOPHILS % (AUTO) 0.5 %; EOSINOPHILS # (AUTO) 0.1 10^3/uL (0.0-0.7); EOSINOPHILS % (AUTO) 1.5 %; HCT - HEMATOCRIT 31.6 % (37.0-47.0); HGB - HEMOGLOBIN 9.6 g/dL (12.0-16.0); LYMPHOCYTES # (AUTO) 1.7 10^3/uL (1.5-3.5); LYMPHOCYTES % (AUTO) 21.8 %; MEAN CORPUSCULAR HEMOGLOBIN 26.5 pg (27.0-31.0); MEAN CORPUSCULAR HGB CONC 30.4 g/dL (32.0-36.0); MEAN CORPUSCULAR VOLUME 87.3 fL (81.0-99.0); MEAN PLATELET VOLUME 9.2 fL (7.9-10.8); MONOCYTES # (AUTO) 0.9 10^3/uL (0.0-1.0); MONOCYTES % (AUTO) 11.7 %; NEUTROPHILS % (AUTO) 64.1 %; PLT - PLATELET COUNT 197 10^3/uL (130-450); RED BLOOD COUNT 3.62 10^6/uL (4.20-5.40); WHITE BLOOD COUNT 7.8 x10^3/uL (4.8-10.8)
[2021-06-25 20:58] LABS: ALBUMIN 3.4 g/dL (3.2-5.5); ALBUMIN/GLOBULIN RATIO 0.7 (1.0-2.2); BILIRUBIN,TOTAL 0.5 mg/dL (0.2-1.0); CREATININE 1.5 mg/dL (0.4-1.0); POTASSIUM 4.3 mmol/L (3.5-5.0)
[2021-06-25] MEDS ORDERED: ACETAMINOPHEN 325 MG TABLET PO STA (20:59)
[2021-06-25] MEDS ORDERED: ONDANSETRON ODT 4 MG TABLET TL STA (21:00)
--- NOTE | 2021-06-25 21:01 | ED Physician Documentation ---
History of Present Illness - Stated complaint Stated Complaint: FEVER/WEAKNESS - Chief complaint Chief Complaint: Fever - History obtained from History obtained from: Patient - Additonal information Additional information: C6-year-old woman with history of chronic urinary tract infection, endometrial CA status post hysterectomy, presents with increased urinary frequency for the past 3 days, nausea, decreased p.o. intake, and suprapubic pain that is aching, constant, gradual in onset, nonradiating. Patient has been taking antipyretics and her last Tylenol was more than 6 hours ago. She is having subjective chills with a temporal thermometer temperature of 104 at home. Denies cough, shortness of breath, chest pain, back pain, diarrhea. vaccinated against covid-19. no known sick contacts. Review of Systems Ten Systems: 10 systems reviewed and negative Constitutional: reports: Fever, Chills, Myalgias, Fatigue GI: reports: Abdominal Pain, Nausea. denies: Vomiting : reports: Frequency. denies: Hematuria Musculoskeletal: denies: Back pain PD PAST MEDICAL HISTORY - Past Medical History Past Medical History: Yes Cardiovascular: Hypertension, High cholesterol, MD, Atrial fibrillation Respiratory: Asthma, Shortness of breath, Sleep apnea, Other Neuro: None Endocrine/Autoimmune: None GI: GERD, Ulcers, Colon polyps EVISCERATOR: None : Incontinence, Chronic bladder infection, Renal insuffiency HEENT: Chronic hearing loss Psych: Depression Musculoskeletal: Osteoarthritis, Chronic back pain, Other Derm: None - Past Surgical History Past Surgical History: Yes General: Cholecystectomy, Colonoscopy Ortho: Knee replacement, Arthroscopic surgery, Spine surgery, Amputation /EVISCERATOR: Tubal ligation, Hysterectomy HEENT: Tonsil/Adenoidectomy - Present Medications Home Medications: Ambulatory Orders Medication Instructions Recorded Confirmed Acetaminophen [Tylenol] 650 mg PO TID PRN 05/05/20 06/25/21 Albuterol Sulfate [Albuterol 2 puffs PO Q4HR PRN 05/05/20 06/25/21 Sulfate Hfa] Aspirin [Aspirin EC] 81 mg PO DAILY 05/05/20 06/25/21 Citalopram Hydrobromide 10 mg PO DAILY 05/05/20 06/25/21 [Citalopram HBr] Docusate Sodium 100Mg Capsule 100 mg PO DAILY 05/05/20 06/25/21 [Colace 100Mg Capsule] Extra Thick Antifungal 1 applic TD DAILY PRN 05/05/20 06/25/21 Methenamine/Sodium Salicylate [Azo 1 tab PO DAILY PRN 05/05/20 06/25/21 Urinary Tract Defense Tab] Miconazole Nitrate [Aloe [place]] 1 applic TD DAILY PRN 05/05/20 06/25/21 Loperamide HCl [Imodium A-D] 1 tab PO PRN PRN 06/08/20 06/25/21 Magnesium Oxide [Magnesium] 400 cap PO DAILY PRN 06/08/20 06/25/21 Nebivolol HCl [Bystolic] 5 mg PO DAILY 02/27/21 06/25/21 Omeprazole Magnesium 20 mg PO DAILY 06/25/21 06/25/21 Oxybutynin [Ditropan] 5 mg PO DAILY 06/25/21 06/25/21 Primidone [Mysoline] 50 mg PO DAILY 06/25/21 06/25/21 Sulfamethox/Trimeth 800/160 1 tablet PO BID 7 Days #14 tablet 06/25/21 [Bactrim Ds] oxyCODONE [Roxicodone] 5 mg PO Q4-6H 06/25/21 06/25/21 - Allergies Allergies/Adverse Reactions: Allergies Allergy/AdvReac Type Severity Reaction Status Date / Time azithromycin Allergy Hives Verified 06/25/21 20:03 erythromycin base Allergy Unknown Verified 06/25/21 20:03 mupirocin [From Bactroban] Allergy Rash Verified 06/25/21 20:03 Penicillins Allergy Hives Verified 06/25/21 20:03 strawberry Allergy Hives Verified 06/25/21 20:03 Tetanus Vaccines and Toxoid Allergy Unknown Verified 06/25/21 20:03 walnut Allergy Hives Verified 06/25/21 20:03 - Social History Does the pt smoke?: No Smoking Status: Never smoker Does the pt drink ETOH?: No Does the pt have substance abuse?: Yes - Immunizations Immunizations are current?: Yes PD ED PE NORMAL - Vitals Vital signs reviewed: Yes - General General: Alert and oriented X 3, No acute distress, Well developed/nourished - HEENT HEENT: Atraumatic, PERRL, EOMI - Neck Neck: Supple, no meningeal sign - Cardiac Cardiac: RRR - Respiratory Respiratory: No respiratory distress, Clear bilaterally - Abdomen Abdomen: Non tender, Non distended, Other (suprapubic discomfort to palpation) - Derm Derm: Normal color, Warm and dry - Extremities Extremities: No deformity - Neuro Neuro: Alert and oriented X 3 - Psych Psych: Normal mood, Normal affect Results - Vitals Vitals: Vital Signs - 24 hr 06/25/21 20:00 Temperature 37.3 C Heart Rate 66 Respiratory 18 Rate Blood Pressure 129/83 H O2 Saturation 97 Oxygen O2 Source Room air - Labs Labs: Laboratory Tests 06/25/21 06/25/21 06/25/21 20:32 20:32 20:38 WBC 7.8 RBC 3.62 L Hgb 9.6 L Hct 31.6 L MCV 87.3 MCH 26.5 L MCHC 30.4 L RDW 17.0 H Plt Count 197 MPV 9.2 Neut # (Auto) 5.0 Lymph # (Auto) 1.7 [place] # (Auto) 0.9 Eos # (Auto) 0.1 Baso # (Auto) 0.0 Absolute Nucleated RBC 0.00 Nucleated RBC % 0.0 Sodium 136 Potassium 4.3 Chloride 100 L Carbon Dioxide 26 Anion Gap 10.0 BUN 32 H Creatinine 1.5 H Estimated GFR (MDRD) 35 L Glucose 124 H Lactic Acid 0.7 Calcium 9.0 Total Bilirubin 0.5 AST 11 ALT 11 Alkaline Phosphatase 76 Total Protein 8.0 Albumin 3.4 Globulin 4.6 H Albumin/Globulin Ratio 0.7 L Urine Color Urine Clarity Urine pH Ur Specific [place] Urine Protein Urine Glucose (UA) Urine Ketones Urine Occult Blood Urine Nitrite Urine Bilirubin Urine Urobilinogen Ur Leukocyte Esterase Urine RBC Urine WBC Ur Squamous Epith Cells Urine Bacteria Urine Culture Comments 06/25/21 21:15 WBC RBC Hgb Hct MCV MCH MCHC RDW Plt Count MPV Neut # (Auto) Lymph # (Auto) [place] # (Auto) Eos # (Auto) Baso # (Auto) Absolute Nucleated RBC Nucleated RBC % Sodium Potassium Chloride Carbon Dioxide Anion Gap BUN Creatinine Estimated GFR (MDRD) Glucose Lactic Acid Calcium Total Bilirubin AST ALT Alkaline Phosphatase Total Protein Albumin Globulin Albumin/Globulin Ratio Urine Color YELLOW Urine Clarity CLOUDY Urine pH 5.5 Ur Specific [place] 1.020 Urine Protein 30 H Urine Glucose (UA) NEGATIVE Urine Ketones NEGATIVE Urine Occult Blood MODERATE H Urine Nitrite NEGATIVE Urine Bilirubin NEGATIVE Urine Urobilinogen 0.2 (NORMAL) Ur Leukocyte Esterase LARGE H Urine RBC 6-10 H Urine WBC >25 H Ur Squamous Epith Cells NONE SEEN Urine Bacteria Moderate H Urine Culture Comments INDICATED PD MEDICAL DECISION MAKING - ED course ED course: 66yF presents with fever/chills, nausea, increased urinary frequency, suprapubic pain. Departure - Departure Disposition: Home, Self Care Clinical Impression: UTI (urinary tract infection) Condition: Good Instructions: ED UTI Cystitis Female Prescriptions: Sulfamethox/Trimeth 800/160 [Bactrim Ds] 1 tablet PO BID 7 Days #14 tablet Comments: You are seen in the emergency department for a urinary tract infection and I am treating it with Bactrim, an antibiotic. If you hare still taking methenamine (medicine to prevent or control returning urinary tract infections), do not take it with Bactrim. You can resume when you complete the course of bactrim. Please return to the emergency department if you have fever beyond 24 to 48 hours (temperature higher than 100.4 by oral or armpit thermometer). Please return also if you have any new or worsening symptoms or other concerns. Plan to follow-up with your primary doctor this week.
[2021-06-25 21:26] LABS: BILIRUBIN,URINE NEGATIVE (NEGATIVE); CLARITY,URINE CLOUDY (CLEAR); GLUCOSE, URINE (UA) NEGATIVE (NEGATIVE); KETONES,URINE (UA) NEGATIVE (NEGATIVE); LEUKOCYTE ESTERASE, URINE LARGE (NEGATIVE); NITRITE,URINE NEGATIVE (NEGATIVE); OCCULT BLOOD,URINE MODERATE (NEGATIVE); PH,URINE 5.5 PH (5.0-7.5); PROTEIN,URINE 30 mg/dL (NEGATIVE); UROBILINOGEN,URINE 0.2 (NORMAL) E.U./dL (NORMAL)
[2021-06-25 21:32] LABS: BACTERIA,URINE Moderate /HPF (None Seen); SQUAMOUS EPITHELIAL CELL,UR NONE SEEN (<= Few); WBC,URINE >25 /HPF (0-5)
[2021-06-25] MEDS ORDERED: SULFAMETH/TRIMETH DS 800/160 MG TABLET PO STA (21:38)
--- NOTE | 2021-06-26 11:00 | ED Physician Documentation ---
ED Addendum - Addendum Addendum: 06/26/21 10:59 Patient was discharged about 3 AM this morning when she went to get up to go get into the taxi she recalled that she has been having a lot of pain in her left leg and she was very worried about the possibility of a blood clot. She has had one in her right leg previously and recalls being on Coumadin for that. She was requesting testing as she has had increased pain over the past week. She does have a bad hip and a bad knee and I suspect this is probably what the issue is after examining the patient she does have some pain to the posterior calf on the left side and a duplex venous exam was obtained which was negative for deep vein thrombosis. The patient's discharge was continued.
--- NOTE | 2021-06-26 11:16 | Ultrasound Report ---
PROCEDURE: Duplex Ext Veins Left INDICATIONS: calf pain swelling TECHNIQUE: Real-time imaging, as well as color and pulse Doppler interrogation, were performed of the lower extr emity deep veins from the inguinal ligament to the popliteal fossa. COMPARISON: None. FINDINGS: The deep veins are normally compressible, and free of intraluminal thrombus. Color and pu lse Doppler demonstrate normal phasic intraluminal flow. There is normal augmentation response to di stal compression maneuver. IMPRESSION: 1. No DVT in the left lower extremity. 2. Preliminary results given by the manager food safety to the ordering provider. Reviewed by: Nicole Fowler MD on 06/26/2021 11:15 AM PDT Approved by: Nicole Fowler MD on 06/26/2021 11:15 AM PDT Station ID: [id number]
[2021-06-26 12:14] VITALS: BP 120/58
== END 2021-06-26 12:37 | disposition home or self-care (01) ==
LOC: EDUNIT# → ED 19:54
DX: N39.0 Urinary tract infection, site not specified (principal); I10 Essential (primary) hypertension; I25.2 Old myocardial infarction; I48.91 Unspecified atrial fibrillation; J45.909 Unspecified asthma, uncomplicated; G47.30 Sleep apnea, unspecified; K21.9 Gastro-esophageal reflux disease without esophagitis; R32 Unspecified urinary incontinence; H91.90 Unspecified hearing loss, unspecified ear; F32.9 Major depressive disorder, single episode, unspecified; Z79.82 Long term (current) use of aspirin; Z79.899 Other long term (current) drug therapy; Z87.440 Personal history of urinary (tract) infections
CPT/HCPCS: 36415; 80053; 81001; 83605; 85025; 87040; 87086; 93971; 99284; A9270; Q0162

== ENCOUNTER 2021-07-30 08:00 | Outpatient (CLI) | payer MEDICARE, MEDICAID ==
--- NOTE | 2021-07-30 16:16 | XRAY Report ---
PROCEDURE: Hip w/Pelvis 1V LT INDICATIONS: Left HIP OSTEOARTHRITIS TECHNIQUE: AP pelvis with lateral view(s) of the left hip(s). COMPARISON: October 13, 2020 FINDINGS: BONES/JOINT: No acute, displaced fracture or dislocation. The femoral heads are seated within the efraín tabula. Complete loss of the left hip joint space with sclerosis of the opposing articular surfaces, acetabul ar protrusio and osteophytosis. Moderate right hip joint space loss. The sacroiliac joint is patent. SOFT TISSUES: No focal abnormality. IMPRESSION: 1.Advanced arthrosis of the left hip. Reviewed by: Luiz Cox MD on 07/30/2021 4:15 PM PST Approved by: Luiz Cox MD on 07/30/2021 4:15 PM PST Station ID: [id number]
--- NOTE | 2021-07-30 16:29 | XRAY Report ---
PROCEDURE: Knee 4 View LT INDICATIONS: L KNEE PX, OSTEOARTHRITIS TECHNIQUE: 4 views of the left knee(s) were acquired. COMPARISON: Knee x-ray 10/13/2020 FINDINGS: Bones: No fractures or dislocations. No suspicious bony lesions. There is severe medial and modera te to severe. Patellofemoral compartment narrowing noted on the left. Periarticular osteophytes and s ubchondral sclerosis are present. No erosions. Right knee arthroplasty is present. Hardware is intact without evidence of hardware fracture or periprosthetic lucency to suggest loosening. Soft tissues: No joint effusion. No suspicious soft tissue calcifications. IMPRESSION: Significant arthritic change within the left knee as above. There is no appreciable inte rval change compared to prior exam. Reviewed by: Lenore Diego MD on 07/30/2021 4:28 PM PST Approved by: Lenore Diego MD on 07/30/2021 4:28 PM PST Station ID: [id number]
== END 2021-07-30 23:59 | disposition home or self-care (01) ==
LOC: DI.N 08:00
PROVIDERS: ATTEND Physician Assistant
DX: M16.12 Unilateral primary osteoarthritis, left hip (principal); M17.12 Unilateral primary osteoarthritis, left knee

== ENCOUNTER 2021-07-31 09:03 | Outpatient (CLI) | payer MEDICARE, MEDICAID ==
[2021-07-31 13:12] LABS: ALKALINE PHOSPHATASE 71 IU/L (42-121); ALT ALANINE AMINOTRANSFERASE 12 IU/L (10-60); AST ASPARTATE AMINOTRANSFERASE 16 IU/L (10-42); BILIRUBIN,TOTAL 0.5 mg/dL (0.2-1.0); BUN - BLOOD UREA NITROGEN 34 mg/dL (6-20); CALCIUM 9.7 mg/dL (8.5-10.3); CARBON DIOXIDE - CO2 27 mmol/L (21-32); CHLORIDE 101 mmol/L (101-111); CHOL/HDL RATIO 4.3 (<4.4); CHOLESTEROL 211 mg/dL; CREATININE 1.2 mg/dL (0.4-1.0); GFR - MDRD 45 (>89); GLUCOSE 134 mg/dL (70-100); HDL CHOLESTEROL 49 mg/dL; LDL CHOLESTEROL,CALCULATED 138 mg/dL; LDL/HDL RATIO 2.8 (<4.4); POTASSIUM 4.6 mmol/L (3.5-5.0); SODIUM 138 mmol/L (135-145); TOTAL PROTEIN 8.2 g/dL (6.7-8.2); TRIGLYCERIDES 121 mg/dL; VLDL CHOLESTEROL 24 mg/dL
[2021-07-31 13:17] LABS: BASOPHILS % (AUTO) 0.4 %; HCT - HEMATOCRIT 38.3 % (37.0-47.0); HGB - HEMOGLOBIN 11.7 g/dL (12.0-16.0); LYMPHOCYTES # (AUTO) 1.5 10^3/uL (1.5-3.5); LYMPHOCYTES % (AUTO) 19.3 %; MEAN CORPUSCULAR HEMOGLOBIN 27.7 pg (27.0-31.0); MEAN CORPUSCULAR HGB CONC 30.5 g/dL (32.0-36.0); MEAN CORPUSCULAR VOLUME 90.8 fL (81.0-99.0); MEAN PLATELET VOLUME 9.9 fL (7.9-10.8); MONOCYTES # (AUTO) 0.3 10^3/uL (0.0-1.0); MONOCYTES % (AUTO) 3.3 %; NEUTROPHILS # (AUTO) 5.9 10^3/uL (1.5-6.6); NEUTROPHILS % (AUTO) 76.6 %; PLT - PLATELET COUNT 280 10^3/uL (130-450); RED BLOOD COUNT 4.22 10^6/uL (4.20-5.40); RED CELL DISTRIBUTION WIDTH 15.8 % (12.0-15.0); WHITE BLOOD COUNT 7.7 x10^3/uL (4.8-10.8)
[2021-07-31 13:19] LABS: THYROID STIMULATING HORMONE 0.58 uIU/mL (0.34-5.60)
== END 2021-07-31 23:59 | disposition home or self-care (01) ==
LOC: LAB.WCP 09:03
PROVIDERS: ATTEND Internal Medicine
DX: I10 Essential (primary) hypertension (principal); E78.5 Hyperlipidemia, unspecified; Z86.79 Personal history of other diseases of the circulatory system
CPT/HCPCS: 36415; 80053; 80061; 83721; 84443; 85025

== ENCOUNTER 2021-10-03 14:06 | Outpatient (CLI) | payer MEDICARE, MEDICAID ==
--- NOTE | 2021-10-03 16:43 | XRAY Report ---
PROCEDURE: Skeletal Survey INDICATIONS: MALIGNANT NEOPLASM OF ENDOMETRIUM TECHNIQUE: Skeletal survey with AP chest, lateral and AP views of the cervical, thoracic and lumbar s pine, AP views of the bilateral humeri, AP views of the pelvis and AP views of the femurs. COMPARISON: None. FINDINGS: No lytic or blastic lesions identified. No suspicious osseous lesions identified. Osteoarthritic dege nerative changes are noted. Right knee arthroplasty prosthesis noted. Status post L2-L4 laminectomies . No soft tissue mass is identified. No suspicious soft tissue calcifications. IMPRESSION: No osseous metastatic disease identified by plain from radiograph. Reviewed by: Shivani Milton MD, PhD on 10/03/2021 4:42 PM PST Approved by: Shivani Milton MD, PhD on 10/03/2021 4:42 PM [facility] Station ID: [id number]
== END 2021-10-03 14:07 | disposition home or self-care (01) ==
LOC: DI 14:06
PROVIDERS: ATTEND Internal Medicine Hematology & Oncology
DX: C54.1 Malignant neoplasm of endometrium (principal)

== ENCOUNTER 2021-11-07 15:52 | Outpatient (CLI) | payer MEDICARE, MEDICAID | END 2021-11-07 15:53 | disposition critical access hospital (66) | LOC: EMS 15:52 | DX: M25.562 Pain in left knee (principal) | CPT/HCPCS: A0425; A0429 ==

== ENCOUNTER 2021-11-07 16:12 | Emergency (ER) | payer MEDICARE, MEDICAID ==
--- NOTE | 2021-11-07 17:02 | XRAY Report ---
PROCEDURE: Knee 4 View LT INDICATIONS: injury/pain TECHNIQUE: 4 views of the left knee(s) were acquired. COMPARISON: None. FINDINGS: Bones: No fractures or dislocations. Moderate tricompartment joint space loss and marginal spurring of the worst in the patellofemoral compartment and lateral compartment. No suspicious bony lesions. Soft tissues: No joint effusion. No suspicious soft tissue calcifications. IMPRESSION: 1. No visible fractures or joint effusion to suggest acute internal derangement. 2. Tricompartment osteoarthritic changes. Reviewed by: Nicole Fowler MD on 11/07/2021 5:00 PM PST Approved by: Nicole Fowler MD on 11/07/2021 5:00 PM PST Station ID: [id number]
--- NOTE | 2021-11-07 17:05 | ED Physician Documentation ---
PD HPI LOWER EXT INJURY - Stated complaint Stated Complaint: KNEE INJURY - Chief complaint Chief Complaint: Ext Problem - History obtained from History obtained from: Patient - Additional information Additional information: The patient comes to the emergency department chief complaint of left knee pain. She states she was going to sit down on her walker seat yesterday when she suddenly felt a snap in her posterior medial knee. She states that she already has some arthritis in the joint. She is followed by orthopedics, who has recommended physical therapy for her arthritis. She states that she Already had quite a bit of swelling in the knee but it seems like it is bit worse. She denies redness or fevers. No injuries anywhere else. Patient did not fall to the floor. No other complaints at this time. Review of Systems Ten Systems: 10 systems reviewed and negative Constitutional: reports: Reviewed and negative Eyes: reports: Reviewed and negative Ears: reports: Reviewed and negative Nose: reports: Reviewed and negative Throat: reports: Reviewed and negative Cardiac: reports: Reviewed and negative Respiratory: reports: Reviewed and negative GI: reports: Reviewed and negative : reports: Reviewed and negative Skin: reports: Reviewed and negative Musculoskeletal: reports: Joint pain, Joint swelling, Pain with weight bearing Neurologic: reports: Reviewed and negative Psychiatric: reports: Reviewed and negative Endocrine: reports: Reviewed and negative Immunocompromised: reports: Reviewed and negative PD PAST MEDICAL HISTORY - Past Medical History Cardiovascular: Hypertension, High cholesterol, ID, Atrial fibrillation Respiratory: Asthma, Shortness of breath, Sleep apnea, Other Neuro: None Endocrine/Autoimmune: None GI: GERD, Ulcers, Colon polyps WEED SPRAYER: None : Incontinence, Chronic bladder infection, Renal insuffiency HEENT: Chronic hearing loss Psych: Depression Musculoskeletal: Osteoarthritis, Chronic back pain, Other Derm: None - Past Surgical History Past Surgical History: Yes General: Cholecystectomy, Colonoscopy Ortho: Knee replacement, Arthroscopic surgery, Spine surgery, Amputation /WEED SPRAYER: Tubal ligation, Hysterectomy HEENT: Tonsil/Adenoidectomy - Present Medications Home Medications: Ambulatory Orders Medication Instructions Recorded Confirmed Acetaminophen [Tylenol] 650 mg PO TID PRN 05/05/20 09/11/21 Albuterol Sulfate [Albuterol 2 puffs PO Q4HR PRN 05/05/20 09/11/21 Sulfate Hfa] Aspirin [Aspirin EC] 81 mg PO DAILY 05/05/20 09/11/21 Citalopram Hydrobromide 10 mg PO DAILY 05/05/20 09/11/21 [Citalopram HBr] Docusate Sodium 100Mg Capsule 100 mg PO DAILY 05/05/20 09/11/21 [Colace 100Mg Capsule] Extra Thick Antifungal 1 applic TD DAILY PRN 05/05/20 09/11/21 Methenamine/Sodium Salicylate [Azo 1 tab PO DAILY PRN 05/05/20 09/11/21 Urinary Tract Defense Tab] Miconazole Nitrate [Aloe [place]] 1 applic TD DAILY PRN 05/05/20 09/11/21 Loperamide HCl [Imodium A-D] 1 tab PO PRN PRN 06/08/20 09/11/21 Magnesium Oxide [Magnesium] 400 cap PO DAILY PRN 06/08/20 09/11/21 Nebivolol HCl [Bystolic] 5 mg PO DAILY 02/27/21 09/11/21 Omeprazole Magnesium 20 mg PO DAILY 06/25/21 09/11/21 Oxybutynin [Ditropan] 5 mg PO DAILY 06/25/21 09/11/21 Primidone [Mysoline] 50 mg PO DAILY 06/25/21 09/11/21 Sulfamethox/Trimeth 800/160 1 tablet PO BID 7 Days #14 tablet 06/25/21 09/11/21 [Bactrim Ds] oxyCODONE [Roxicodone] 5 mg PO Q4-6H 06/25/21 09/11/21 Ferrous Sulfate 325 mg PO DAILY 09/11/21 09/11/21 Metoprolol Succinate [Toprol Xl] 50 mg PO DAILY 09/11/21 09/11/21 Petrolatum,White [Aloe [place]] 56 gm TP BID 09/11/21 09/11/21 Rosuvastatin Calcium [Crestor] 20 mg PO DAILY 09/11/21 09/11/21 - Allergies Allergies/Adverse Reactions: Allergies Allergy/AdvReac Type Severity Reaction Status Date / Time azithromycin Allergy Hives Verified 11/07/21 16:23 erythromycin base Allergy Unknown Verified 11/07/21 16:23 mupirocin [From Bactroban] Allergy Rash Verified 11/07/21 16:23 Penicillins Allergy Hives Verified 11/07/21 16:23 strawberry Allergy Hives Verified 11/07/21 16:23 Tetanus Vaccines and Toxoid Allergy Unknown Verified 11/07/21 16:23 walnut Allergy Hives Verified 11/07/21 16:23 - Social History Does the pt smoke?: No Smoking Status: Never smoker Does the pt drink ETOH?: No Does the pt have substance abuse?: Yes - Immunizations Immunizations are current?: Yes PD ED PE NORMAL - Vitals Vital signs reviewed: Yes - General General: Alert and oriented X 3, No acute distress, Well developed/nourished - HEENT HEENT: Atraumatic, PERRL, EOMI, Moist mucous membranes - Neck Neck: Supple, no meningeal sign - Cardiac Cardiac: Strong equal pulses - Respiratory Respiratory: No respiratory distress - Derm Derm: Normal color, Warm and dry, No rash, Other (No posterior left lower extremity contusion) - Extremities Extremities: No deformity, Other (Moderate effusion left knee. Posterior medial soft tissue tenderness without mass or fullness. Tendons are palpably intact.) - Neuro Neuro: Alert and oriented X 3, superintendent plant 2-12 intact, Normal speech - Psych Psych: Normal mood, Normal affect Results - Vitals Vitals: Vital Signs - 24 hr 11/07/21 11/07/21 16:16 17:37 Temperature 36.9 C 37.0 C Heart Rate 51 L 48 L Respiratory 20 16 Rate Blood Pressure 167/61 H 157/51 H O2 Saturation 98 95 Oxygen O2 Source Room air - Rads (name of study) Left knee x-ray series Radiology: Final report received, EMP read indepedently, See rad report (No fractures or other acute disease. Tricompartment osteoarthritic changes) PD MEDICAL DECISION MAKING - ED course Complexity details: considered differential, d/w patient ED course: Knee x-ray was performed and showed arthritis. The patient was given an articulating knee brace. She already ambulates with a walker and lives at an assisted living facility. We have discussed that it will probably be several weeks at least till her injury heals, and that she should follow-up with Ortho for further concerns. We discussed the usual indications for return. Departure - Departure Disposition: 01 Home, Self Care Clinical Impression: Knee effusion, left Left hamstring muscle strain Qualifiers: Encounter type: initial encounter Qualified Code(s): S76.312A - Strain of muscle, fascia and tendon of the posterior muscle group at thigh level, left thigh, initial encounter Condition: Stable Instructions: ED Effusion Knee, ED Strain Muscle Ext Comments: Your x-ray shows arthritis, but no acute bony injury. You have most likely stra ined the hamstrings musculature or tendon that comes down the back of your knee. You may develop some bruising in the back your knee, which may track down your leg. This will ultimately go away after a few weeks. Muscle strains generally take several weeks to heal, and are mainly treated with anti-inflammatories and cessation of activities that strain the area. You have been given an articulat ing knee brace and should continue to use the walker as well as wear the brace when you get up and get around. You should also continue to follow-up with your orthopedist and work with physical therapy to help you get moving again in the setting of this injury. You may take ibuprofen and Tylenol as needed for your symptoms.
[2021-11-07 17:38] VITALS: BP 157/51
== END 2021-11-07 18:23 | disposition home or self-care (01) ==
LOC: EDUNIT# → ED 16:12
DX: M25.462 Effusion, left knee (principal); I10 Essential (primary) hypertension; I48.91 Unspecified atrial fibrillation
CPT/HCPCS: 99282; 99283

== ENCOUNTER 2022-10-15 15:42 | Outpatient (CLI) | payer MEDICARE, MEDICAID ==
--- NOTE | 2022-10-15 13:26 | XRAY Report ---
PROCEDURE: Hip 2 View LT INDICATIONS: LEFT HIP PAIN TECHNIQUE: An AP view of the pelvis and an AP view and frog-leg lateral views of the hip are provide d. COMPARISON: 07/30/2021 FINDINGS: Bones: No fractures or dislocations. No suspicious bony lesions. The visualized pelvic ring appear s intact. End-stage arthritic change of the hip with large acetabular osteophyte and symmetric sever e joint space loss and mild protrusio acetabulum. Soft tissues: No suspicious soft tissue calcifications or masses. IMPRESSION: End-stage arthritic change of the left hip. Reviewed by: Luis Fernando White MD on 10/15/2022 1:25 PM PST Approved by: Luis Fernando White MD on 10/15/2022 1:25 PM PST Station ID: [id number]
--- NOTE | 2022-10-15 17:34 | XRAY Report ---
PROCEDURE: Knee 3 View LT INDICATIONS: LEFT KNEE PAIN TECHNIQUE: 3 views of the left knee(s) were acquired. COMPARISON: None. FINDINGS: Bones: There is prior right total knee arthroplasty. Moderate to severe tricompartmental osteoarthrit is in left knee is seen most notably in lateral femoral tibial compartment. No fractures or dislocati ons. No suspicious bony lesions. Soft tissues: Moderate left suprapatellar joint effusion is seen. No suspicious soft tissue calcifi cations. IMPRESSION: Moderate to severe tricompartmental osteoarthritis in left knee most notably in lateral f emoral tibial compartment. Moderate left suprapatellar joint effusion. Reviewed by: Puma Hough MD on 10/15/2022 5:33 PM PST Approved by: Puma Hough MD on 10/15/2022 5:33 PM PST Station ID: [id number]
== END 2022-10-15 15:45 | disposition home or self-care (01) ==
LOC: DI.WOS 15:42
PROVIDERS: ATTEND Orthopaedic Surgery
DX: M17.12 Unilateral primary osteoarthritis, left knee (principal); M25.462 Effusion, left knee; M16.12 Unilateral primary osteoarthritis, left hip

== ENCOUNTER 2022-11-05 08:09 | Outpatient (CLI) | payer MEDICARE, MEDICAID ==
[2022-11-05 08:51] LABS: % IRON SATURATION 25 % (20-50); CHOL/HDL RATIO 3.9 (<4.4); CHOLESTEROL 147 mg/dL; HDL CHOLESTEROL 38 mg/dL; IRON 67 ug/dL (28-170); LDL CHOLESTEROL,CALCULATED 70 mg/dL; LDL/HDL RATIO 1.8 (<4.4); TOTAL IRON BINDING CAPACITY 267 ug/dL (250-450); TRANSFERRIN 191 mg/dL (192-382); TRIGLYCERIDES 194 mg/dL; VLDL CHOLESTEROL 39 mg/dL
[2022-11-05 09:03] LABS: THYROID STIMULATING HORMONE 2.7 uIU/mL (0.34-5.60)
[2022-11-05 09:09] LABS: FERRITIN 74.7 ng/mL (11.0-306.8)
== END 2022-11-05 08:10 | disposition home or self-care (01) ==
LOC: LAB 08:09
PROVIDERS: ATTEND Internal Medicine
DX: D50.9 Iron deficiency anemia, unspecified (principal); I25.2 Old myocardial infarction; D80.8 Other immunodeficiencies with predominantly antibody defects; Z86.79 Personal history of other diseases of the circulatory system
CPT/HCPCS: 36415; 80061; 82728; 83540; 83721; 84443; 84466

== ENCOUNTER 2024-03-09 09:49 | Outpatient (CLI) | payer MEDICARE, MEDICAID ==
[2024-03-09 12:10] LABS: BASOPHILS # (AUTO) 0.1 10^3/uL (0.0-0.1); BASOPHILS % (AUTO) 1.2 %; EOSINOPHILS # (AUTO) 0.7 10^3/uL (0.0-0.7); EOSINOPHILS % (AUTO) 11.7 %; HCT - HEMATOCRIT 36.7 % (37.0-47.0); HGB - HEMOGLOBIN 11.3 g/dL (12.0-16.0); LYMPHOCYTES # (AUTO) 1.8 10^3/uL (1.5-3.5); LYMPHOCYTES % (AUTO) 30.4 %; MEAN CORPUSCULAR HEMOGLOBIN 30.2 pg (27.0-31.0); MEAN CORPUSCULAR HGB CONC 30.8 g/dL (32.0-36.0); MEAN CORPUSCULAR VOLUME 98.1 fL (81.0-99.0); MEAN PLATELET VOLUME 10.5 fL (7.9-10.8); MONOCYTES # (AUTO) 0.6 10^3/uL (0.0-1.0); MONOCYTES % (AUTO) 9.9 %; NEUTROPHILS # (AUTO) 2.7 10^3/uL (1.5-6.6); NEUTROPHILS % (AUTO) 46.6 %; PLT - PLATELET COUNT 174 10^3/uL (130-450); RED BLOOD COUNT 3.74 10^6/uL (4.20-5.40); RED CELL DISTRIBUTION WIDTH 12.3 % (12.0-15.0); WHITE BLOOD COUNT 5.9 x10^3/uL (4.8-10.8)
[2024-03-09 12:35] LABS: ALBUMIN 3.9 g/dL (3.2-5.5); ALBUMIN/GLOBULIN RATIO 1.3 (1.0-2.2); ALKALINE PHOSPHATASE 65 IU/L (42-121); ALT ALANINE AMINOTRANSFERASE 7 IU/L (10-60); AST ASPARTATE AMINOTRANSFERASE 12 IU/L (10-42); BILIRUBIN,TOTAL 0.4 mg/dL (0.2-1.0); BUN - BLOOD UREA NITROGEN 36 mg/dL (6-20); CALCIUM 9.5 mg/dL (8.5-10.3); CARBON DIOXIDE - CO2 26 mmol/L (21-32); CHLORIDE 106 mmol/L (101-111); CHOL/HDL RATIO 3.7 (<4.4); CHOLESTEROL 141 mg/dL; CREATININE 1.3 mg/dL (0.6-1.3); GFR - MDRD 40 (>89); GLUCOSE 113 mg/dL (74-104); HDL CHOLESTEROL 38 mg/dL; LDL CHOLESTEROL,CALCULATED 67 mg/dL; LDL/HDL RATIO 1.8 (<4.4); POTASSIUM 4.4 mmol/L (3.5-4.5); SODIUM 137 mmol/L (135-145); TRIGLYCERIDES 178 mg/dL (48-352); VLDL CHOLESTEROL 36 mg/dL
[2024-03-09 12:41] LABS: THYROID STIMULATING HORMONE 1.47 uIU/mL (0.34-5.60)
[2024-03-10 20:08] LABS: KAPPA FREE LT CHAINS SERUM 71.7 mg/L (3.3-19.4); KAPPA/LAMBDA RATIO SERUM 2.04 (0.26-1.65); LAMBDA FREE LT CHAINS SERUM 35.1 mg/L (5.7-26.3)
== END 2024-03-09 09:50 | disposition home or self-care (01) ==
LOC: LAB.N 09:49
PROVIDERS: ATTEND Internal Medicine
DX: E78.5 Hyperlipidemia, unspecified (principal); F33.0 Major depressive disorder, recurrent, mild; D80.8 Other immunodeficiencies with predominantly antibody defects
CPT/HCPCS: 36415; 80053; 80061; 82784; 83521; 83721; 84155; 84165; 84443; 85025; 86334

== ENCOUNTER 2025-08-17 09:53 | Observation (INO) ==
--- NOTE | 2025-08-17 10:04 | ED Physician Documentation ---
History of Present Illness Stated complaint Stated Complaint: CP Chief complaint Chief Complaint: Cardiac History obtained from History obtained from: Patient and EMS Additonal information Additional information: 70-year-old woman presents from [facility]. She has a history of GERD, problems with a left hip replacement, femoral vein DVT and she endorses heart problems although is vague. Per the chart she has had an NSTEMI and she thinks she has had stents and had to have her heart "reset" in the past. Unfortunately her med list does not accompany her and we will try to get that from the SNF. I reviewed a discharge summary from [facility] dated February 22 of this year. She presents for chest pain, she is a vague historian but says at some point last night she had significant pain radiating from fingers of her left hand across the chest that lasted about a minute and then lingered for maybe an hour. She is pain-free now. Her main complaint to me now is wanting something for a headache which she says started last night as well. It is throbbing in nature and frontal. Workup demonstrates CBC showing stable chronic anemia, CMP showing some alkalosis which is worsening compared to prior. CT of the chest with no PE, but does have bilateral patchy pneumonia and bilateral pleural effusions. Head CT was negative. Given her chronic illness I do believe she be should be hospitalized with pneumonia. She was cultured up and given Rocephin and doxycycline noting azithromycin allergy. Spoke with Dr. Mcmillan, our hospitalist for admission at 12:12 PM. The patient and family are counseled as to the diagnosis and need for admission. This document was made in part using voice recognition software, while efforts are made to proofread this document, sound alike an grammatical errors may occur. Meds/Allgy Home Medications Ambulatory Orders Medication Instructions Recorded Confirmed citalopram 10 mg tablet 10 mg PO DAILY 06/25/2404/01 clotrimazole 1 % topical cream 1 applic topical BID 04/14/25 nystatin 100,000 unit/gram topical 1 applic topical BI D moisture 06/25/24 04/14/25 powder primidone 50 mg tablet 50 mg PO BID 06/25/24 topiramate 25 mg tablet 25 mg PO DAILY 06/25/2404/01 triamcinolone acetonide 0.1 % 1 applic topical BID itc tanesha 06/25/24 04/14/25 lotion albuterol sulfate 90 mcg/actuation 2 puff inhalation Q 6H PRN wheezing 03/07/25 04/14/25 aerosol inhaler atorvastatin 40 mg tablet (Lipitor) 40 mg PO QPM 03/0704/14/25 bisacodyl 10 mg rectal suppository 10 mg MS DAILY PRN constipation 03/07/25 04/14/25 (Dulcolax (bisacodyl)) enalapril maleate 10 mg tablet 5 mg PO DAILY 03/07/25 04/14/25 enoxaparin 120 mg/0.8 mL 120 mg subcut Q12H 03/07/25 04/14/25 subcutaneous syringe Held on 03/09/25. Instructions: Hold until otherwise directed by provider folic acid 1 mg tablet 1 mg PO DAILY 03/07/2504/14 metoprolol succinate 25 mg 12.5 mg PO DAILY 03/07/25 0 04/14/25 tablet,extended release 24 hr mineral oil (Fleet Mineral Oil 118 ml MS DAILY PRN con stipation 03/07/25 04/14/25 enema) naloxone 4 mg/actuation nasal 1 spray intranasal Q2M P RN opioid 03/07/25 04/14/25 spray (Narcan) overdose omeprazole 20 mg capsule,delayed 20 mg PO DAILY 04/14/25 release ondansetron HCl 4 mg tablet 4 mg PO Q4H PRN nausea and vomiting 03/07/25 04/14/25 oxybutynin chloride 10 mg 10 mg PO DAILY 03/07/2504/01 tablet,extended release 24 hr oxycodone 5 mg tablet 5 mg PO Q6H PRN pain 5 04/14/25 polyethylene glycol 3350 17 gram 17 g PO DAILY 5 04/14/25 oral powder packet (Miralax) polyethylene glycol 3350 17 gram 17 g PO DAILY PRN con stipation 03/07/25 04/14/25 oral powder packet (Miralax) sennosides 8.6 mg tablet (Laxative 17.2 mg PO DAILY MS N constipation 03/07/25 04/14/25 (sennosides)) sennosides 8.6 mg tablet (senna) 8.6 mg PO DAILY 03/0704/14/25 ferrous sulfate 325 mg (65 mg 325 mg PO DAILY #30 tabs 03/09/25 04/14/25 iron) tablet (Iron (ferrous sulfate)) cefpodoxime 100 mg tablet 100 mg PO BID 7 days #14 tab s 05/17/25 ciprofloxacin HCl 500 mg tablet 500 mg PO BID #20 tabs 05/19/25 Allergies Allergies Allergy/AdvReac Type Severity Reaction Status Date / Time adhesive tape Allergy Unknown Hives Verified 08/17/25 11:21 bacitracin Allergy Unknown Unknown Verified 08/17/25 11:21 erythromycin base Allergy Unknown Rash Verified 08/17/25 11:21 Penicillins Allergy Unknown Hives, Verified 08/17/25 11:21 fever strawberry Allergy Unknown Hives Verified 08/17/25 11:21 walnut Allergy Unknown Hives Verified 08/17/25 11:21 azithromycin Allergy Hives Verified 08/17/25 11:21 mupirocin (From Bactroban) Allergy Rash Verified 08/17/25 11:21 Tetanus Vaccines and Toxoid Allergy Unknown Verified 08/17/25 11:21 lactose AdvReac Unknown Diarrhea, Verified 08/17/25 11:21 stomach cramps PFSH Active Problems All Active Problems (Updated 08/17/25 @ 12:15 by Rogers Damon MD) Pneumonia (Acute) Atrial fibrillation (Chronic) Chest pain (Acute) Wound of skin (Acute) MARY (acute kidney injury) (Acute) ABLA (acute blood loss anemia) (Acute) Bleeding from left hip wound (Acute) Skin tear of left forearm without complication (Acute) Fall from ground level (Acute) Facial laceration (Acute) Closed fracture of neck of left femur (Acute) Changes in skin texture (Acute) Non-pressure chronic ulcer of buttock limited to breakdown of skin (Acute) Osteoarthritis of left knee (Acute) Arthritis of left knee (Acute) GERD (gastroesophageal reflux disease) (Acute) Internal hemorrhoid (Acute) Mixed hyperlipidemia (Acute) Sleep apnea in adult (Acute) Stage 3b chronic kidney disease (Acute) NSTEMI (non-ST elevated myocardial infarction) (Acute) History of atrial fibrillation (Acute) Drug induced constipation (Acute) Sinus bradycardia (Acute) Pressure sore on buttocks (Acute) Arthritis of left hip (Acute) Adenocarcinoma of endometrium (Acute 05/16/20) Sigmoid diverticulosis (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) Obstructive sleep apnea (Acute 12/18/17) [place]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) Essential hypertension (Acute 12/18/17) Depression, major, recurrent, mild (Acute 03/12/18) Chronic osteomyelitis involving right ankle and foot (Acute 05/23/21) BMI 40.0-44.9, adult (Acute 09/25/18) Benign essential tremor (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) Asthma, mild intermittent (Acute 11/27/18) Stasis dermatitis of both legs (Acute) Medical History Medical History (Updated 08/17/25 @ 12:15 by Rogers Damon MD) GERD (gastroesophageal reflux disease) Polyarthritis OAB (overactive bladder) Hypertension Adenomatous colon polyp Furunculosis of buttock Furunculosis of abdominal wall Furuncle of left thigh Pressure injury of buttock, stage 2 Pressure injury of left ankle, stage 2 Surgical History Surgical History History of cardioversion 2005, for atrial fibrillation w/ NSTEMI History of esophagogastroduodenoscopy 04/2021, gastritis History of total abdominal hysterectomy and bilateral salpingo-oophorectomy 09/2020, robotic surgery for endometrial cancer H/O colonoscopy 04/2021, no polyps + sigmoid diverticulosis History of total knee replacement Right, 2014 H/O colonoscopy 2016, adenomatous polyp History of lumbar laminectomy 2011 History of cholecystectomy 2011 History of shoulder surgery Surgery for chronic dislocations History of tubal ligation 1981 History of tonsillectomy Amputation, toe, traumatic Age 3, digits 2-4 w/ lawnmower accident Family History Family History Mother CAD (coronary artery disease) Father CAD (coronary artery disease) Diabetes High blood pressure Brother Diabetes CAD (coronary artery disease) Sister Diabetes CAD (coronary artery disease) Social History Social History If you are a former smoker, when did you quit? (Date/Year): 1972 Number of Years Smoked: 1 How many cigarettes a day do you smoke? 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 Service: No POLST Patient has POLST: Yes Exam Exam Vital Signs: Vital Signs x48h Temp Pulse Resp BP BP Pulse Ox O2 Flow Rate 08/17/25 11:53 107 H 155/101 H 95 2 08/17/25 11:28 86 153/84 H 97 2 08/17/25 11:11 85 153/84 H 94 2 08/17/25 11:06 82 150/75 H 95 2 08/17/25 11:01 84 160/76 H 96 2 08/17/25 10:57 137 H 141/98 H 96 2 08/17/25 10:06 151/82 H 08/17/25 10:04 36.8 C 105 H 23 122/87 91 L Constitutional Chronically but not acutely ill-appearing morbidly obese woman laying in bed in no distress Respiratory breath sounds equal bilaterally and normal respiratory effort Cardiovascular Rapid and regular without murmur Psychiatry oriented x3 Results Vitals Vitals: Vital Signs - 24 hr 08/17/25 10:04 08/17/25 10:06 08/17/25 10:27 Temperature 36.8 C Temperature Source Temporal Artery Scan Pulse Rate 105 H Respiratory Rate 23 Blood Pressure 122/87 Blood Pressure [Left] 151/82 H O2 Saturation 91 L O2 Source Room air If not protocol: Oxygen Flow, liters/minute Pain Intensity 5 5 08/17/25 10:57 08/17/25 11:01 08/17/25 11:06 Temperature Temperature Source Pulse Rate 137 H 84 82 Respiratory Rate Blood Pressure 141/98 H 160/76 H 150/75 H Blood Pressure [Left] O2 Saturation 96 96 95 O2 Source Nasal cannula Nasal cannula Nasal cannula If not protocol: Oxygen Flow, liters/minute 2 2 2 Pain Intensity 4 08/17/25 11:11 08/17/25 11:28 08/17/25 11:29 Temperature Temperature Source Pulse Rate 85 86 Respiratory Rate Blood Pressure 153/84 H 153/84 H Blood Pressure [Left] O2 Saturation 94 97 O2 Source Nasal cannula Nasal cannula If not protocol: Oxygen Flow, liters/minute 2 2 Pain Intensity 5 5 08/17/25 11:53 Temperature Temperature Source Pulse Rate 107 H Respiratory Rate Blood Pressure 155/101 H Blood Pressure [Left] O2 Saturation 95 O2 Source Nasal cannula If not protocol: Oxygen Flow, liters/minute 2 Pain Intensity Oxygen O2 Source Nasal cannula Labs Labs: Laboratory Tests 08/17/25 10:25 WBC 6.0 RBC 2.50 L Hgb 8.1 L Hct 26.6 L MCV 106.4 H MCH 32.4 H MCHC 30.5 L RDW 20.0 H Plt Count 143 MPV 9.7 Neut # (Auto) 2.7 Lymph # (Auto) 1.6 [place] # (Auto) 1.0 Eos # (Auto) 0.6 Baso # (Auto) 0.1 Absolute Nucleated RBC 0.00 Nucleated RBC % 0.0 Sodium 140 Potassium 4.8 H Chloride 100 L Carbon Dioxide 37 H Anion Gap 3.0 L BUN 18 Creatinine 0.7 Estimated GFR (MDRD) 82 L Glucose 141 H Calcium 9.0 Total Bilirubin 0.3 AST 9 L ALT 6 L Alkaline Phosphatase 66 Troponin I High Sens 12.1 Total Protein 6.2 L Albumin 3.3 Globulin 2.9 Albumin/Globulin Ratio 1.1 Lipase 21 PD Medical Decision Making ED course ED course: 70-year-old woman with complex medical history presents for resolved chest pain. Differential would include ACS, musculoskeletal pain, PE, dissection. Pain is resolved now though and her main complaint to me is actually headache. She is noted to be in atrial flutter with RVR. Med list from [facility] received and reviewed 10:39 AM. Her medications include: 1. Tylenol as needed: 2. Albuterol MDI as needed 3. Aspirin 81 mg a day 4. She is on Cipro currently since August 15 at a dose of abnormal grams twice a day for 7 days for UTI 5. cyanocobalaminNo. 6. Benadryl 7. Dulcolax 8. Enalapril 5 mg a day 9. Iron supplementation 10. Folic acid supplementation 11. Gabapentin 3 mg twice daily as needed 12. DuoNeb every 6 hours as needed 13. Melatonin 5 mg at bedtime 16. Metoprolol succinate 12.5 mg a day 17. Mineral oil enema as needed 18. MiraLAX as needed 19. Neupro sent for abdominal wall rash 20. Narcan as needed The 21 omeprazole 20. 2 oxycodone 5 mg every 6 hours as needed 21 primidone 50 mg twice a day 22 probiotics 23 refresh gel 24 as needed senna 25 salt tablets I do not see an anticoagulant on the list. POLST also received reviewed, selective treatment with full code. Twelve-lead EKG done at 1039 hrs. and independently interpreted by me demonstrates atrial flutter/flutter, RVR with rate of 127, mild lateral ST depression. No clear ischemic findings. Ordered 5 mg of IV metoprolol for rate control. Ischemic workup and CTPA. Workup demonstrates chronic stable macrocytic anemia, CMP notable for elevated bicarb, it was 33 a couple of days ago. Negative troponin. After the IV metoprolol her heart rate was atrial fibrillation around 90. Workup demonstrates CBC showing stable chronic anemia, CMP showing some alkalosis which is worsening compared to prior. CT of the chest with no PE, but does have bilateral patchy pneumonia and bilateral pleural effusions. Head CT was negative. Given her chronic illness I do believe she be should be hospitalized with pneumonia. She was cultured up and given Rocephin and doxycycline noting azithromycin allergy. Spoke with Dr. Mcmillan, our hospitalist for admission at 12:12 PM. The patient and family are counseled as to the diagnosis and need for admission. This document was made in part using voice recognition software, while efforts are made to proofread this document, sound alike an grammatical errors may occur. Discharge Plan Discharge Patient Disposition: [facility] DC/Xfer Condition: Serious Clinical Impression: Chest pain, Atrial fibrillation, Pneumonia Prescriptions: No Action polyethylene glycol 3350 [Miralax] 17 gram powder in packet 17 g PO DAILY PRN (Reason: constipation) enoxaparin 120 mg/0.8 mL syringe 120 mg subcut Q12H enalapril maleate 10 mg tablet 5 mg PO DAILY Rx Instructions: dose increased from 5 mg/day sennosides [Laxative (sennosides)] 8.6 mg tablet 17.2 mg PO DAILY PRN (Reason: constipation) metoprolol succinate 25 mg tablet extended release 24 hr 12.5 mg PO DAILY Rx Instructions: dose reduced from 50 mg daily omeprazole 20 mg capsule,delayed release(DR/EC) 20 mg PO DAILY Rx Instructions: Take 1 capsule by mouth once a day atorvastatin [Lipitor] 40 mg tablet 40 mg PO QPM bisacodyl [Dulcolax (bisacodyl)] 10 mg suppository 10 mg MS DAILY PRN (Reason: constipation) folic acid 1 mg tablet 1 mg PO DAILY ondansetron HCl 4 mg tablet 4 mg PO Q4H PRN (Reason: nausea and vomiting) mineral oil [Fleet Mineral Oil] Enema 118 ml MS DAILY PRN (Reason: constipation) Rx Instructions: discard any unused portion polyethylene glycol 3350 [Miralax] 17 gram powder in packet 17 g PO DAILY naloxone [Narcan] 4 mg/actuation spray,non-aerosol 1 spray intranasal Q2M PRN (Reason: opioid overdose) Rx Instructions: spray 1 dose into ONE nostril; alternate nostrils w each dose until help arrives sennosides [senna] 8.6 mg tablet 8.6 mg PO DAILY oxycodone 5 mg tablet 5 mg PO Q6H PRN (Reason: pain) oxybutynin chloride 10 mg tablet extended release 24hr 10 mg PO DAILY Rx Instructions: Take 1 tablet by mouth once a day albuterol sulfate 90 mcg/actuation HFA aerosol inhaler 2 puff inhalation Q6H PRN (Reason: wheezing) Rx Instructions: INHALE 2 PUFFS BY MOUTH FOUR TIMES DAILY NEEDED FOR WHEEZING ferrous sulfate [Iron (ferrous sulfate)] 325 mg (65 mg iron) tablet 325 mg PO DAILY Qty: 30 0RF cefpodoxime 100 mg tablet 100 mg PO BID 7 Days Qty: 14 0RF Rx Instructions: must administer with a meal/food ciprofloxacin HCl 500 mg tablet 500 mg PO BID Qty: 20 0RF citalopram 10 mg tablet 10 mg PO DAILY Rx Instructions: Take 1 tablet by mouth once a day topiramate 25 mg tablet 25 mg PO DAILY Rx Instructions: Take 1 tablet by mouth every night triamcinolone acetonide 0.1 % lotion 1 applic topical BID Rx Instructions: Apply to bilateral LR 2 times a day clotrimazole 1 % cream 1 applic topical BID Rx Instructions: Apply 2 gram to affected area once a day to help heal rash/ulceration/maceration between buttocks primidone 50 mg tablet 50 mg PO BID nystatin 100,000 unit/gram powder 1 applic topical BID Rx Instructions: Apply to skin twice a day as needed Print Language: Citizen [place]
[2025-08-17] MEDS: ACETAMINOPHEN 500 MG TABLET PO STA (10:27)
--- OUTSIDE RECORDS SUMMARY | 2025-08-17 10:34 | EXTERNAL MEDICAL SUMMARY RPT | Continuity of Care Document ---
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, implants and grafts, [facility] 2025-05-27 13:13 Postprocedural hemor rhage of a musculoskeletal structure following a musculoskeletal system procedure [facility] 2025-05-27 13:17 Bed [facility] status [facility] 2025-05-31 13:28 Encounter for screening for car diovascular disorders [facility] 2025-06-05 14:10 [facility]ys[facility] 2025-06-06 07:47 [facility] 2025-06-06 16:02 [facility] 2025-06-07 08:12 Elevated C-reactive protein (CR P) [facility] 2025-06-07 13:07 Other specified abnormal findin gs of blood chemistry [facility] 2025-06-21 09:29 Pain due to internal orthopedic prosthetic devices, implants and grafts, [facility] 2025-06-21 09:32 Bed confinement status [facility] 2025-06-29 12:56 [facility], [facility]25-[facility]-05 12:51 Elevated C-reactive protein (CR P) [facility] 2025-07-06 00:06 Elevated C-reactive protein (CR P) [facility] 2025-07-06 15:05 [facility], [facility] 2025-07-20 11:25 Arthritis due to other bacteria , left [facility] 2025-08-03 11:43 Encounter for screen ing for diseases of the blood and blood-forming organs and certain disorders involving the immune mechanism [facility] 2025-08-05 10:56 Elevated C-reactive protein (CR P) [facility] 2025-08-15 11:28 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, subsequent encounter [facility] 2025-08-15 16:58 Folate deficiency anemia, unspe cified [facility] 2025-08-15 16:58 Anemia, unspecified [facility] 2025-08-15 16:58 Deficiency of other specified B group vitamins [facility] Results/Labs test date facility value unit notes Result panel 1 CUL,WOUND (AEROBIC) 2025-05-17 11:35 [facility] (missing) (missing) (missing) GENTAMICIN 2025-05-17 11:35 [facility] (missing) (missing) (missing) TOBRAMYCIN 2025-05-17 11:35 [facility] (missing) (missing) (missing) GENTAMICIN 2025-05-17 11:35 [facility] >=16 (missing) (missing) AMPICILLIN 2025-05-17 11:35 [facility] >=32 (missing) (missing) AMPICILLIN/SULBAC WEBBER 2025-05-17 11:35 [facility] >=32 (missing) (missing) TRIMETHOPRIM/SULF AMETHOXAZOLE 2025-05-17 11:35 [facility] >=320 (missing) (missing) CIPROFLOXACIN 2025-05-17 11:35 [facility] >=4 (missing) (missing) CEFAZOLIN 2025-05-17 11:35 [facility] >=64 (missing) (missing) LEVOFLOXACIN 2025-05-17 11:35 [facility] >=8 (missing) (missing) CEFEPIME 2025-05-17 11:35 [facility] <=0.12 (missing) (missing) ERTAPENEM 2025-05-17 11:35 [facility] <=0.12 (missing) (missing) CEFTRIAXONE 2025-05-17 11:35 [facility] <=0.25 (missing) (missing) CIPROFLOXACIN 2025-05-17 11:35 [facility] <=0.25 (missing) (missing) TOBRAMYCIN 2025-05-17 11:35 [facility] <=1 (missing) (missing) PIPERACILLIN/TAZO BACTAM 2025-05-17 11:35 [facility] <=4 (missing) (missing) LEVOFLOXACIN 2025-05-17 11:35 [facility] 0.5 (missing) (missing) AMPICILLIN/SULBAC WEBBER 2025-05-17 11:35 [facility] 16 (missing) (missing) CEFEPIME 2025-05-17 11:35 [facility] 2 (missing) (missing) IMIPENEM 2025-05-17 11:35 [facility] 2 (missing) (missing) CUL,WOUND (AEROBIC) 2025-05-17 11:35 [facility] 22+ GROWTH (missing) (missing) CUL,WOUND (AEROBIC) 2025-05-17 11:35 [facility] 33+ GROWTH (missing) (missing) LEVOFLOXACIN 2025-05-17 11:35 [facility] 4 (missing) (missing) CEFAZOLIN 2025-05-17 11:35 [facility] 8 (missing) (missing) PIPERACILLIN/TAZO BACTAM 2025-05-17 11:35 [facility] 8 (missing) (missing) TOBRAMYCIN 2025-05-17 11:35 [facility] 8 (missing) (missing) CUL,WOUND (AEROBIC) 2025-05-17 11:35 [facility] CC.2ORG 2 COLONY COUNT* (missing) (missing) CUL,WOUND (AEROBIC) 2025-05-17 11:35 [facility] CC.3ORG 3 COLONY COUNT* (missing) (missing) CUL,WOUND (AEROBIC) 2025-05-17 11:35 [facility] CC.6COLONY COUNT (missing) (missing) CUL,WOUND (AEROBIC) 2025-05-17 11:35 [facility] CULTURE IN PROGRESS. RESULTS TO FOLLOW. (missing) (missing) CUL,WOUND (AEROBIC) 2025-05-17 11:35 [facility] GR[facility] (missing) (missing) CUL,WOUND (AEROBIC) 2025-05-17 11:35 [facility] IDMIC.2ORG 2 ID/TOBY COM* (missing) (missing) CUL,WOUND (AEROBIC) 2025-05-17 11:35 [facility] IDMIC.3ORG 3 ID/TOBY COM* (missing) (missing) CUL,WOUND (AEROBIC) 2025-05-17 11:35 [facility] NO WHITE BLOOD CELLS SEEN (missing) (missing) CUL,WOUND (AEROBIC) 2025-05-17 11:35 [facility] ORG.2PRELIM ORG ID* (missing) (missing) CUL,WOUND (AEROBIC) 2025-05-17 11:35 [employer] ORG.3PRELIM ORG ID* (missing) (missing) CUL,WOUND (AEROBIC) 2025-05-17 11:35 [facility] PPROPROTEUS SPECIES TO BE FURTHER IDENTIFIED (missing) (missing) O:PROMIR 2025-05-17 11:35 [facility] PROMIRPROTEUS MIRABILISPROTEUS MIRABILIS (missing) (missing) O:PROSTU 2025-05-17 11:35 [facility] PROSTUPROVIDENCIA STUARTIIPROVIDENCIA STUARTII (missing) (missing) O:PSEAER 2025-05-17 11:35 [facility] PSEAERPSEUDOMONAS AERUGINOSAPSEUDOMONAS AERUGINOSA (missing) (missing) CUL,WOUND (AEROBIC) 2025-05-17 11:35 [facility] RARE GRAM POSITIVE BACILLI (missing) (missing) CUL,WOUND (AEROBIC) 2025-05-17 11:35 [facility] RARE GRAM POSITIVE COCCI (missing) (missing) CUL,WOUND (AEROBIC) 2025-05-17 11:35 [facility] YIDENTIFICATION AND SENSITIVITIES TO FOLLOW (missing) (missing) Result panel 2 BILIRUBIN,DIRECT 2025-05-23 12:08 [facility] < 0.10 mg/dl As of March 2023 testing method has changed, this may include reference ranges. NUCLEATED RED BLOOD CELLS AUTO 2025-05-23 12:08 [facility] 0.0 /100wbc (missing) NRBC ABSOLUTE COUNT (AUTO) 2025-05-23 12:08 [facility] 0.00 x10 3/ul (missing) BASOPHILS # (AUTO) 2025-05-23 12:08 [facility] 0.1 10 3/ul (missing) BILIRUBIN,TOTAL 2025-05-23 12:08 [facility] 0.2 mg/dl As of March 2023 testing method has changed, this may include reference ranges. EOSINOPHILS # (AUTO) 2025-05-23 12:08 [facility] 0.6 10 3/ul (missing) MONOCYTES # (AUTO) 2025-05-23 12:08 [facility] 0.6 10 3/ul (missing) CREATININE 2025-05-23 12:08 [email or web address] 1.1 mg/dl As of March 2023 testing method has changed, this may include reference ranges. LYMPHOCYTES # (AUTO) 2025-05-23 12:08 [email or web address] 1.7 10 3/ul (missing) HGB - HEMOGLOBIN 2025-05-23 12:08 [email or web address] 10.6 g/dl (missing) ALKALINE PHOSPHATASE 2025-05-23 12:08 [facility] 100 iu/l As of March 2023 testing method has changed, this may include reference ranges. CHLORIDE 2025-05-23 12:08 [facility] 100 mmol/l As of March 2023 testing method has changed, this may include reference ranges. GLUCOSE 2025-05-23 12:08 [facility] 129 mg/dl As of March 2023 testing method has changed, this may include reference ranges. AST ASPARTATE AMINOTRANSFERASE 2025-05-23 12:08 [facility] 13 iu/l As of March 2023 testing method has changed, this may include reference ranges. RED CELL DISTRIBUTION WIDTH 2025-05-23 12:08 [facility] 13.6 % (missing) SODIUM 2025-05-23 12:08 [facility] 136 mmol/l (missing) CRP - C-REACTIVE PROTEIN 2025-05-23 12:08 [facility] 2.3 mg/dl As of March 2023 testing method has changed, this may include reference ranges. PLT - PLATELET COUNT 2025-05-23 12:08 [facility] 217 10 3/ul (missing) MEAN CORPUSCULAR HEMOGLOBIN 2025-05-23 12:08 [facility] 29.4 pg (missing) NEUTROPHILS # (AUTO) 2025-05-23 12:08 [facility] 3.3 10 3/ul (missing) ALBUMIN 2025-05-23 12:08 [facility] 3.6 g/dl As of March 2023 testing method has changed, this may include reference ranges. RED BLOOD COUNT 2025-05-23 12:08 [facility] 3.60 10 6/ul (missing) GLOBULIN 2025-05-23 12:08 [facility] 3.7 g/dl (missing) MEAN CORPUSCULAR HGB CONC 2025-05-23 12:08 [facility] 30.5 g/dl (missing) CARBON DIOXIDE - CO2 2025-05-23 12:08 [facility] 31 mmol/l As of March 2023 testing method has changed, this may include reference ranges. HCT - HEMATOCRIT 2025-05-23 12:08 [facility] 34.7 % (missing) BUN - BLOOD UREA NITROGEN 2025-05-23 12:08 [facility] 37 mg/dl As of March 2023 testing method has changed, this may include reference ranges. POTASSIUM 2025-05-23 12:08 [facility] 4.7 mmol/l As of March 2023 testing method has changed, this may include reference ranges. GFR - MDRD 2025-05-23 12:08 [facility] 49 (missing) The IDMS-traceable MDRD Study Equation has been validated extensively in and populations between the ages of 18 and 70 with impaired kidney function (eGFR < 60 mL/min/1.73m2) and has shown good performance for patients with all common causes of kidney disease. Although this equation has not been validated for patients older than 70, an MDRD-derived eGFR may still be a useful tool for providers caring for patients older than 70. References: http://www.nkdep. nih.gov/lab-evalu ation/gfr/creatin ine-stand ardization, last updated November 2011. ANION GAP 2025-05-23 12:08 [facility] 5.0 (missing) (missing) ESR- ERYTHROCYTE SEDIMENT RATE 2025-05-23 12:08 [facility] 59 mm/hr (missing) WHITE BLOOD COUNT 2025-05-23 12:08 [facility] 6.3 x10 3/ul (missing) TOTAL PROTEIN 2025-05-23 12:08 [facility] 7.3 g/dl As of March 2023 testing method has changed, this may include reference ranges. ALT ALANINE AMINOTRANSFERASE 2025-05-23 12:08 [facility] 9 iu/l As of March 2023 testing method has changed, this may include reference ranges. MEAN PLATELET VOLUME 2025-05-23 12:08 [facility] 9.5 fl (missing) CALCIUM 2025-05-23 12:08 [facility] 9.8 mg/dl As of March 2023 testing method has changed, this may include reference ranges. MEAN CORPUSCULAR VOLUME 2025-05-23 12:08 [facility] 96.4 fl (missing) Result panel 3 BILIRUBIN,DIRECT 2025-05-30 13:00 [email or web address] < 0.10 mg/dl As of March 2023 testing method has changed, this may include reference ranges. NUCLEATED RED BLOOD CELLS AUTO 2025-05-30 13:00 [facility] 0.0 /100wbc (missing) BASOPHILS # (AUTO) 2025-05-30 13:00 [facility] 0.0 10 3/ul (missing) NRBC ABSOLUTE COUNT (AUTO) 2025-05-30 13:00 [facility] 0.00 x10 3/ul (missing) BILIRUBIN,TOTAL 2025-05-30 13:00 [facility] 0.2 mg/dl As of March 2023 testing method has changed, this may include reference ranges. EOSINOPHILS # (AUTO) 2025-05-30 13:00 [facility] 0.6 10 3/ul (missing) MONOCYTES # (AUTO) 2025-05-30 13:00 [facility] 0.6 10 3/ul (missing) CREATININE 2025-05-30 13:00 [facility] 1.2 mg/dl As of March 2023 testing method has changed, this may include reference ranges. LYMPHOCYTES # (AUTO) 2025-05-30 13:00 [facility] 1.7 10 3/ul (missing) AST ASPARTATE AMINOTRANSFERASE 2025-05-30 13:00 [facility] 10 iu/l As of March 2023 testing method has changed, this may include reference ranges. CHLORIDE 2025-05-30 13:00 [facility] 102 mmol/l As of March 2023 testing method has changed, this may include reference ranges. RED CELL DISTRIBUTION WIDTH 2025-05-30 13:00 [facility] 13.9 % (missing) SODIUM 2025-05-30 13:00 [facility] 136 mmol/l (missing) PLT - PLATELET COUNT 2025-05-30 13:00 [facility] 161 10 3/ul (missing) ANION GAP 2025-05-30 13:00 [facility] 2.0 (missing) (missing) NEUTROPHILS # (AUTO) 2025-05-30 13:00 [facility] 2.8 10 3/ul (missing) MEAN CORPUSCULAR HEMOGLOBIN 2025-05-30 13:00 [facility] 29.6 pg (missing) ALBUMIN 2025-05-30 13:00 [facility] 3.1 g/dl As of March 2023 testing method has changed, this may include reference ranges. RED BLOOD COUNT 2025-05-30 13:00 [facility] 3.18 10 6/ul (missing) GLOBULIN 2025-05-30 13:00 [facility] 3.3 g/dl (missing) MEAN CORPUSCULAR HGB CONC 2025-05-30 13:00 [facility] 30.4 g/dl (missing) HCT - HEMATOCRIT 2025-05-30 13:00 [facility] 30.9 % (missing) CARBON DIOXIDE - CO2 2025-05-30 13:00 [facility] 32 mmol/l As of March 2023 testing method has changed, this may include reference ranges. BUN - BLOOD UREA NITROGEN 2025-05-30 13:00 [facility] 35 mg/dl As of March 2023 testing method has changed, this may include reference ranges. POTASSIUM 2025-05-30 13:00 [facility] 4.7 mmol/l As of March 2023 testing method has changed, this may include reference ranges. CRP - C-REACTIVE PROTEIN 2025-05-30 13:00 [facility] 4.9 mg/dl As of March 2023 testing method has changed, this may include reference ranges. GFR - MDRD 2025-05-30 13:00 [facility] 44 (missing) The IDMS-traceable MDRD Study Equation has been validated extensively in and populations between the ages of 18 and 70 with impaired kidney function (eGFR < 60 mL/min/1.73m2) and has shown good performance for patients with all common causes of kidney disease. Although this equation has not been validated for patients older than 70, an MDRD-derived eGFR may still be a useful tool for providers caring for patients older than 70. References: http://www.nkdep. nih.gov/lab-evalu ation/gfr/creatin ine-stand ardization, last updated November 2011. WHITE BLOOD COUNT 2025-05-30 13:00 [facility] 5.8 x10 3/ul (missing) TOTAL PROTEIN 2025-05-30 13:00 [facility] 6.4 g/dl As of March 2023 testing method has changed, this may include reference ranges. ESR- ERYTHROCYTE SEDIMENT RATE 2025-05-30 13:00 [facility] 66 mm/hr (missing) ALT ALANINE AMINOTRANSFERASE 2025-05-30 13:00 [facility] 8 iu/l As of March 2023 testing method has changed, this may include reference ranges. ALKALINE PHOSPHATASE 2025-05-30 13:00 [facility] 83 iu/l As of March 2023 testing method has changed, this may include reference ranges. MEAN PLATELET VOLUME 2025-05-30 13:00 [facility] 9.0 fl (missing) HGB - HEMOGLOBIN 2025-05-30 13:00 [facility] 9.4 g/dl (missing) CALCIUM 2025-05-30 13:00 [facility] 9.4 mg/dl As of March 2023 testing method has changed, this may include reference ranges. GLUCOSE 2025-05-30 13:00 [facility] 95 mg/dl As of March 2023 testing method has changed, this may include reference ranges. MEAN CORPUSCULAR VOLUME 2025-05-30 13:00 [facility] 97.2 fl (missing) Result panel 4 WBC,URINE 2025-06-05 13:20 [facility] >25 /hpf (missing) CUL, URINE 2025-06-05 13:20 [facility] 0<10,000 CFU/mL (missin g) (missing) RBC,URINE 2025-06-05 13:20 [facility] 0-5 /hpf (missing) UROBILINOGEN,UR INE 2025-06-05 13:20 [facility] 0.2 (NORMAL) e.u./dl (missing) SPECIFIC GRAVITY,URINE 2025-06-05 13:20 [facility] 1.005 (missin g) (missing) PH,URINE 2025-06-05 13:20 [facility] 7.0 ph (missing) CLARITY,URINE 2025-06-05 13:20 [facility] CLEAR (missin g) (missing) CUL, URINE 2025-06-05 13:20 [facility] CULTURE IN PROGRESS. RESULTS TO FOLLOW. (missin g) (missing) BACTERIA,URINE 2025-06-05 13:20 [facility] Few /hpf (missing) O:GNB 2025-06-05 13:20 [facility] GNBGRAM NEGATIVE BACILLIGRAM NEGATIVE BACILLI (missin g) (missing) CUL, URINE 2025-06-05 13:20 [facility] IDMICID/TOBY COM* (missin g) (missing) UR CULTURE IF IND 2025-06-05 13:20 [facility] INDICATED (missin g) (missing) URINE MICROSCOPIC INDICATED? 2025-06-05 13:20 [facility] INDICATED (missin g) (missing) LEUKOCYTE ESTERASE, URINE 2025-06-05 13:20 [facility] MODERATE (missin g) (missing) NITRITE,URINE 2025-06-05 13:20 [facility] NEGATIVE (missin g) (missing) BILIRUBIN,URINE 2025-06-05 13:20 [facility] NEGATIVE (missin g) Bilirubin can be influenced by color interference. Please correlate positive results with clinical presentation GLUCOSE, URINE (UA) 2025-06-05 13:20 [facility] NEGATIVE mg/dl (missing) KETONES,URINE (UA) 2025-06-05 13:20 [facility] NEGATIVE mg/dl (missing) PROTEIN,URINE 2025-06-05 13:20 [facility] NEGATIVE mg/dl (missing) YEAST,URINE 2025-06-05 13:20 [facility] PRESENT (missin g) (missing) CUL, URINE 2025-06-05 13:20 [facility] Pending (missin g) (missing) EPITHELIAL CELLS,UR 2025-06-05 13:20 [facility] RARE Renal Tubular /hpf (missing) SQUAMOUS EPITHELIAL CELL,UR 2025-06-05 13:20 [facility] RARE Squamous (missin g) (missing) CUL, URINE 2025-06-05 13:20 [facility] SENSNPSENSITIVITIES NOT PERFORMED UNLESS REQUESTED (missin g) (missing) OCCULT BLOOD,URINE 2025-06-05 13:20 [facility] TRACE (missin g) (missing) CUL, URINE 2025-06-05 13:20 [facility] UCC.6COLONY COUNT (missin g) (missing) COLOR,URINE 2025-06-05 13:20 [facility] YELLOW (missin g) URINE RANDOM Result panel 5 NUCLEATED RED BLOOD CELLS AUTO 2025-06-05 19:55 [facility] 0.0 /100wbc (missing) NRBC ABSOLUTE COUNT (AUTO) 2025-06-05 19:55 [facility] 0.00 x10 3/ul (missing) BASOPHILS # (AUTO) 2025-06-05 19:55 [facility] 0.1 10 3/ul (missing) BILIRUBIN,TOTAL 2025-06-05 19:55 [facility] 0.2 mg/dl As of March 2023 testing method has changed, this may include reference ranges. EOSINOPHILS # (AUTO) 2025-06-05 19:55 [facility] 0.9 10 3/ul (missing) MONOCYTES # (AUTO) 2025-06-05 19:55 [facility] 0.9 10 3/ul (missing) ALBUMIN/GLOBULIN RATIO 2025-06-05 19:55 [facility] 1.0 (missing) (missing) CREATININE 2025-06-05 19:55 [facility] 1.1 mg/dl As of March 2023 testing method has changed, this may include reference ranges. LYMPHOCYTES # (AUTO) 2025-06-05 19:55 [facility] 1.9 10 3/ul (missing) CHLORIDE 2025-06-05 19:55 [facility] 101 mmol/l As of March 2023 testing method has changed, this may include reference ranges. RED CELL DISTRIBUTION WIDTH 2025-06-05 19:55 [facility] 13.6 % (missing) SODIUM 2025-06-05 19:55 [facility] 135 mmol/l Unknown PLT - PLATELET COUNT 2025-06-05 19:55 [facility] 149 10 3/ul (missing) GLUCOSE 2025-06-05 19:55 [facility] 149 mg/dl As of March 2023 testing method has changed, this may include reference ranges. MEAN CORPUSCULAR HEMOGLOBIN 2025-06-05 19:55 [facility] 29.5 pg (missing) RED BLOOD COUNT 2025-06-05 19:55 [facility] 3.32 10 6/ul (missing) ALBUMIN 2025-06-05 19:55 [facility] 3.5 g/dl As of March 2023 testing method has changed, this may include reference ranges. GLOBULIN 2025-06-05 19:55 [facility] 3.6 g/dl (missing) CARBON DIOXIDE - CO2 2025-06-05 19:55 [facility] 30 mmol/l As of March 2023 testing method has changed, this may include reference ranges. MEAN CORPUSCULAR HGB CONC 2025-06-05 19:55 [facility] 30.8 g/dl (missing) HCT - HEMATOCRIT 2025-06-05 19:55 [facility] 31.8 % (missing) ANION GAP 2025-06-05 19:55 [facility] 4.0 (missing) (missing) NEUTROPHILS # (AUTO) 2025-06-05 19:55 [facility] 4.0 10 3/ul (missing) CRP - C-REACTIVE PROTEIN 2025-06-05 19:55 [facility] 4.8 mg/dl As of March 2023 testing method has changed, this may include reference ranges. BUN - BLOOD UREA NITROGEN 2025-06-05 19:55 [facility] 40 mg/dl As of March 2023 testing method has changed, this may include reference ranges. GFR - MDRD 2025-06-05 19:55 [facility] 49 (missing) The IDMS-traceable MDRD Study Equation has been validated extensively in and populations between the ages of 18 and 70 with impaired kidney function (eGFR < 60 mL/min/1.73m2) and has shown good performance for patients with all common causes of kidney disease. Although this equation has not been validated for patients older than 70, an MDRD-derived eGFR may still be a useful tool for providers caring for patients older than 70. References: http://www.nkdep. nih.gov/lab-evalu ation/gfr/creatin ine-stand ardization, last updated November 2011. POTASSIUM 2025-06-05 19:55 [facility] 5.2 mmol/l As of March 2023 testing method has changed, this may include reference ranges. ALT ALANINE AMINOTRANSFERASE 2025-06-05 19:55 [facility] 6 iu/l As of March 2023 testing method has changed, this may include reference ranges. TOTAL PROTEIN 2025-06-05 19:55 [facility] 7.1 g/dl As of March 2023 testing method has changed, this may include reference ranges. WHITE BLOOD COUNT 2025-06-05 19:55 [facility] 7.8 x10 3/ul (missing) ALKALINE PHOSPHATASE 2025-06-05 19:55 [facility] 77 iu/l As of March 2023 testing method has changed, this may include reference ranges. AST ASPARTATE AMINOTRANSFERASE 2025-06-05 19:55 [facility] 8 iu/l As of March 2023 testing method has changed, this may include reference ranges. MEAN PLATELET VOLUME 2025-06-05 19:55 [facility] 9.3 fl (missing) CALCIUM 2025-06-05 19:55 [facility] 9.6 mg/dl As of March 2023 testing method has changed, this may include reference ranges. HGB - HEMOGLOBIN 2025-06-05 19:55 [facility] 9.8 g/dl (missing) MEAN CORPUSCULAR VOLUME 2025-06-05 19:55 [facility] 95.8 fl (missing) Result panel 6 BILIRUBIN,DIRECT 2025-06-06 12:10 [facility] < 0.10 mg/dl As of March 2023 testing method has changed, this may include reference ranges. NUCLEATED RED BLOOD CELLS AUTO 2025-06-06 12:10 [facility] 0.0 /100wbc (missing) NRBC ABSOLUTE COUNT (AUTO) 2025-06-06 12:10 [facility] 0.00 x10 3/ul (missing) BASOPHILS # (AUTO) 2025-06-06 12:10 [facility] 0.1 10 3/ul (missing) BILIRUBIN,TOTAL 2025-06-06 12:10 [facility] 0.2 mg/dl As of March 2023 testing method has changed, this may include reference ranges. EOSINOPHILS # (AUTO) 2025-06-06 12:10 [facility] 0.9 10 3/ul (missing) MONOCYTES # (AUTO) 2025-06-06 12:10 [facility] 1.1 10 3/ul (missing) CREATININE 2025-06-06 12:10 [facility] 1.1 mg/dl As of March 2023 testing method has changed, this may include reference ranges. CHLORIDE 2025-06-06 12:10 [facility] 101 mmol/l As of March 2023 testing method has changed, this may include reference ranges. GLUCOSE 2025-06-06 12:10 [email or web address] 109 mg/dl As of March 2023 testing method has changed, this may include reference ranges. RED CELL DISTRIBUTION WIDTH 2025-06-06 12:10 [facility] 13.5 % (missing) SODIUM 2025-06-06 12:10 [facility] 137 mmol/l (missing) PLT - PLATELET COUNT 2025-06-06 12:10 [facility] 155 10 3/ul (missing) LYMPHOCYTES # (AUTO) 2025-06-06 12:10 [facility] 2.0 10 3/ul (missing) MEAN CORPUSCULAR HEMOGLOBIN 2025-06-06 12:10 [facility] 29.4 pg (missing) RED BLOOD COUNT 2025-06-06 12:10 [facility] 3.33 10 6/ul (missing) NEUTROPHILS # (AUTO) 2025-06-06 12:10 [facility] 3.5 10 3/ul (missing) GLOBULIN 2025-06-06 12:10 [facility] 3.5 g/dl (missing) ALBUMIN 2025-06-06 12:10 [facility] 3.5 g/dl As of March 2023 testing method has changed, this may include reference ranges. MEAN CORPUSCULAR HGB CONC 2025-06-06 12:10 [facility] 30.5 g/dl (missing) CARBON DIOXIDE - CO2 2025-06-06 12:10 [facility] 32 mmol/l As of March 2023 testing method has changed, this may include reference ranges. HCT - HEMATOCRIT 2025-06-06 12:10 [facility] 32.1 % (missing) BUN - BLOOD UREA NITROGEN 2025-06-06 12:10 [facility] 37 mg/dl As of March 2023 testing method has changed, this may include reference ranges. ANION GAP 2025-06-06 12:10 [facility] 4.0 (missing) (missing) CRP - C-REACTIVE PROTEIN 2025-06-06 12:10 [facility] 4.4 mg/dl As of March 2023 testing method has changed, this may include reference ranges. POTASSIUM 2025-06-06 12:10 [facility] 4.8 mmol/l As of March 2023 testing method has changed, this may include reference ranges. GFR - MDRD 2025-06-06 12:10 [facility] 49 (missing) The IDMS-traceable MDRD Study Equation has been validated extensively in and populations between the ages of 18 and 70 with impaired kidney function (eGFR < 60 mL/min/1.73m2) and has shown good performance for patients with all common causes of kidney disease. Although this equation has not been validated for patients older than 70, an MDRD-derived eGFR may still be a useful tool for providers caring for patients older than 70. References: http://www.nkdep. nih.gov/lab-evalu ation/gfr/creatin ine-stand ardization, last updated November 2011. ALT ALANINE AMINOTRANSFERASE 2025-06-06 12:10 [facility] 6 iu/l As of March 2023 testing method has changed, this may include reference ranges. TOTAL PROTEIN 2025-06-06 12:10 [facility] 7.0 g/dl As of March 2023 testing method has changed, this may include reference ranges. WHITE BLOOD COUNT 2025-06-06 12:10 [facility] 7.6 x10 3/ul (missing) ESR- ERYTHROCYTE SEDIMENT RATE 2025-06-06 12:10 [facility] 75 mm/hr (missing) AST ASPARTATE AMINOTRANSFERASE 2025-06-06 12:10 [facility] 8 iu/l As of March 2023 testing method has changed, this may include reference ranges. ALKALINE PHOSPHATASE 2025-06-06 12:10 [facility] 85 iu/l As of March 2023 testing method has changed, this may include reference ranges. MEAN PLATELET VOLUME 2025-06-06 12:10 [facility] 9.3 fl (missing) HGB - HEMOGLOBIN 2025-06-06 12:10 [facility] 9.8 g/dl (missing) CALCIUM 2025-06-06 12:10 [facility] 9.9 mg/dl As of March 2023 testing method has changed, this may include reference ranges. MEAN CORPUSCULAR VOLUME 2025-06-06 12:10 [facility] 96.4 fl (missing) Result panel 7 WBC MORPHOLOGY (MULTIPLE) 2025-06-28 12:10 [facility] (missing) (missing) MANUAL DIFFERENTIAL AGREES WITH AUTO DIFFERENTIAL BILIRUBIN,DIRECT 2025-06-28 12:10 [facility] < 0.10 mg/dl As of March 2023 testing method has changed, this may include reference ranges. NUCLEATED RED BLOOD CELLS AUTO 2025-06-28 12:10 [facility] 0.0 /100wbc (missing) NRBC ABSOLUTE COUNT (AUTO) 2025-06-28 12:10 [facility] 0.00 x10 3/ul (missing) BASOPHILS # (AUTO) 2025-06-28 12:10 [facility] 0.1 10 3/ul (missing) BILIRUBIN,TOTAL 2025-06-28 12:10 [facility] 0.2 mg/dl As of March 2023 testing method has changed, this may include reference ranges. MONOCYTES # (AUTO) 2025-06-28 12:10 [facility] 0.8 10 3/ul (missing) CRP - C-REACTIVE PROTEIN 2025-06-28 12:10 [facility] 0.9 mg/dl As of March 2023 testing method has changed, this may include reference ranges. EOSINOPHILS # (AUTO) 2025-06-28 12:10 [facility] 1.1 10 3/ul (missing) CREATININE 2025-06-28 12:10 [facility] 1.2 mg/dl As of March 2023 testing method has changed, this may include reference ranges. CHLORIDE 2025-06-28 12:10 [facility] 101 mmol/l As of March 2023 testing method has changed, this may include reference ranges. GLUCOSE 2025-06-28 12:10 [facility] 103 mg/dl As of March 2023 testing method has changed, this may include reference ranges. AST ASPARTATE AMINOTRANSFERASE 2025-06-28 12:10 [facility] 12 iu/l As of March 2023 testing method has changed, this may include reference ranges. SODIUM 2025-06-28 12:10 [facility] 135 mmol/l (missing) PLT - PLATELET COUNT 2025-06-28 12:10 [email or web address] 144 10 3/ul (missing) RED CELL DISTRIBUTION WIDTH 2025-06-28 12:10 [facility] 15.9 % (missing) ANION GAP 2025-06-28 12:10 [facility] 2.0 (missing) (missing) LYMPHOCYTES # (AUTO) 2025-06-28 12:10 [email or web address] 2.0 10 3/ul (missing) NEUTROPHILS # (AUTO) 2025-06-28 12:10 [facility] 2.6 10 3/ul (missing) RED BLOOD COUNT 2025-06-28 12:10 [facility] 3.29 10 6/ul (missing) GLOBULIN 2025-06-28 12:10 [email or web address] 3.3 g/dl (missing) ALBUMIN 2025-06-28 12:10 [facility] 3.4 g/dl As of March 2023 testing method has changed, this may include reference ranges. MEAN CORPUSCULAR HEMOGLOBIN 2025-06-28 12:10 [facility] 30.1 pg (missing) MEAN CORPUSCULAR HGB CONC 2025-06-28 12:10 [facility] 30.8 g/dl (missing) CARBON DIOXIDE - CO2 2025-06-28 12:10 [facility] 32 mmol/l As of March 2023 testing method has changed, this may include reference ranges. HCT - HEMATOCRIT 2025-06-28 12:10 [facility] 32.1 % (missing) ESR- ERYTHROCYTE SEDIMENT RATE 2025-06-28 12:10 [facility] 37 mm/hr (missing) POTASSIUM 2025-06-28 12:10 [facility] 4.9 mmol/l As of March 2023 testing method has changed, this may include reference ranges. GFR - MDRD 2025-06-28 12:10 [facility] 44 (missing) The IDMS-traceable MDRD Study Equation has been validated extensively in and populations between the ages of 18 and 70 with impaired kidney function (eGFR < 60 mL/min/1.73m2) and has shown good performance for patients with all common causes of kidney disease. Although this equation has not been validated for patients older than 70, an MDRD-derived eGFR may still be a useful tool for providers caring for patients older than 70. References: http://www.nkdep .nih.gov/lab-zenaida luation/gfr/crea tinine-stand ardization, last updated November 2011. BUN - BLOOD UREA NITROGEN 2025-06-28 12:10 [facility] 44 mg/dl As of March 2023 testing method has changed, this may include reference ranges. WHITE BLOOD COUNT 2025-06-28 12:10 [facility] 6.5 x10 3/ul (missing) TOTAL PROTEIN 2025-06-28 12:10 [facility] 6.7 g/dl As of March 2023 testing method has changed, this may include reference ranges. ALKALINE PHOSPHATASE 2025-06-28 12:10 [facility] 85 iu/l As of March 2023 testing method has changed, this may include reference ranges. ALT ALANINE AMINOTRANSFERASE 2025-06-28 12:10 [facility] 9 iu/l As of March 2023 testing method has changed, this may include reference ranges. CALCIUM 2025-06-28 12:10 [facility] 9.4 mg/dl As of March 2023 testing method has changed, this may include reference ranges. MEAN PLATELET VOLUME 2025-06-28 12:10 [facility] 9.6 fl (missing) HGB - HEMOGLOBIN 2025-06-28 12:10 [facility] 9.9 g/dl (missing) MEAN CORPUSCULAR VOLUME 2025-06-28 12:10 [facility] 97.6 fl (missing) SLIDE REVIEW? 2025-06-28 12:10 [facility] Indicated (missing) (missing) PLATELET ESTIMATE, MANUAL 2025-06-28 12:10 [facility] NORMAL (130-450,000) (missing) (missing) PLATELET MORPHOLOGY 2025-06-28 12:10 [facility] NORMAL APPEARANCE (missing) (missing) RBC MORPHOLOGY (MULTIPLE) 2025-06-28 12:10 [facility] NORMAL APPEARANCE (missing) (missing) Result panel 8 NUCLEATED RED BLOOD CELLS AUTO 2025-07-04 17:50 [facility] 0.0 /100wbc (missing) NRBC ABSOLUTE COUNT (AUTO) 2025-07-04 17:50 [facility] 0 .00 x10 3/ul (missing) BASOPHILS # (AUTO) 2025-07-04 17:50 [facility] 0.1 10 3/ul (missing) EOSINOPHILS # (AUTO) 2025-07-04 17:50 [facility] 0.5 10 3/ul (missing) MONOCYTES # (AUTO) 2025-07-04 17:50 [facility] 0.7 10 3/ul (missing) MEAN PLATELET VOLUME 2025-07-04 17:50 [facility] 10.0 fl (missing) HGB - HEMOGLOBIN 2025-07-04 17:50 [facility] 10.7 g /dl (missing) MEAN CORPUSCULAR VOLUME 2025-07-04 17:50 [facility] 100. 3 fl (missing) PLT - PLATELET COUNT 2025-07-04 17:50 [facility] 154 10 3/ul (missing) RED CELL DISTRIBUTION WIDTH 2025-07-04 17:50 [facility] 17.1 % (missing) LYMPHOCYTES # (AUTO) 2025-07-04 17:50 [facility] 2.0 10 3/ul (missing) MEAN CORPUSCULAR HGB CONC 2025-07-04 17:50 [facility] 29 .6 g/dl (missing) MEAN CORPUSCULAR HEMOGLOBIN 2025-07-04 17:50 [facility] 29.6 pg (missing) RED BLOOD COUNT 2025-07-04 17:50 [facility] 3.61 10 6/ul (missing) HCT - HEMATOCRIT 2025-07-04 17:50 [facility] 36.2 % (missing) NEUTROPHILS # (AUTO) 2025-07-04 17:50 [facility] 4.2 10 3/ul (missing) WHITE BLOOD COUNT 2025-07-04 17:50 [facility] 7.4 x10 3/ul (missing) Result panel 9 CRP - C-REACTIVE PROTEIN 2025-07-05 11:30 [facility] 1.9 mg/dl As of Mar testing method has changed, this may include reference ranges. Result panel 10 CRP - C-REACTIVE PROTEIN 2025-07-18 13:40 [facility] 1.5 mg/dl As of Mar testing method has changed, this may include reference ranges. Result panel 11 NUCLEATED RED BLOOD CELLS AUTO 2025-08-01 10:45 [facility] 0.0 /100wbc (missing) NRBC ABSOLUTE COUNT (AUTO) 2025-08-01 10:45 [facility] 0.00 x10 3/ul (missing) BASOPHILS # (AUTO) 2025-08-01 10:45 [facility] 0.1 10 3/ul (missing) EOSINOPHILS # (AUTO) 2025-08-01 10:45 [facility] 0.5 10 3/ul (missing) MONOCYTES # (AUTO) 2025-08-01 10:45 [facility] 0.6 10 3/ul (missing) LYMPHOCYTES # (AUTO) 2025-08-01 10:45 [facility] 1.7 10 3/ul (missing) MEAN PLATELET VOLUME 2025-08-01 10:45 [facility] 10.3 fl (missing) MEAN CORPUSCULAR VOLUME 2025-08-01 10:45 [facility] 104.5 fl (missing) PLT - PLATELET COUNT 2025-08-01 10:45 [facility] 134 10 3/ul (missing) NEUTROPHILS # (AUTO) 2025-08-01 10:45 [facility] 2.7 10 3/ul (missing) RED CELL DISTRIBUTION WIDTH 2025-08-01 10:45 [facility] 20.0 % (missing) RED BLOOD COUNT 2025-08-01 10:45 [facility] 3.10 10 6/ul (missing) MEAN CORPUSCULAR HGB CONC 2025-08-01 10:45 [facility] 30.2 g/dl (missing) MEAN CORPUSCULAR HEMOGLOBIN 2025-08-01 10:45 [facility] 31.6 pg (missing) HCT - HEMATOCRIT 2025-08-01 10:45 [facility] 32.4 % (missing) RBC MORPHOLOGY (MULTIPLE) 2025-08-01 10:45 [facility] 4+ ANISOCYTOSIS (missing) (missing) WHITE BLOOD COUNT 2025-08-01 10:45 [facility] 5.7 x10 3/ul (missing) HGB - HEMOGLOBIN 2025-08-01 10:45 [facility] 9.8 g/dl (missing) SLIDE REVIEW? 2025-08-01 10:45 [facility] Indicated (missing) (missing) PLATELET ESTIMATE, MANUAL 2025-08-01 10:45 [facility] NORMAL (130-450,000) (missing) (missing) Result panel 12 CRP - C-REACTIVE PROTEIN 2025-08-02 14:50 [facility] 0.8 mg/dl As of Mar testing method has changed, this may include reference ranges. Result panel 13 AMPICILLIN 2025-08-11 17:40 [facility] >16 (missing) (missing) WBC,URINE 2025-08-11 17:40 [facility] >25 /hpf (missing) CIPROFLOXACIN 2025-08-11 17:40 [facility] <=0.25 (missing) (missing) ERTAPENEM 2025-08-11 17:40 [facility] <=0.25 (missing) (missing) LEVOFLOXACIN 2025-08-11 17:40 [facility] <=0.5 (missing) (missing) MEROPENEM 2025-08-11 17:40 [facility] <=0.5 (missing) (missing) TRIMETHOPRIM/SULF AMETHOXAZOLE 2025-08-11 17:40 [facility] <=0.5/9.5 (missing) (missing) CEFEPIME 2025-08-11 17:40 [facility] <=1 (missing) (missing) CEFTRIAXONE 2025-08-11 17:40 [facility] <=1 (missing) (missing) NITROFURANTOIN 2025-08-11 17:40 [facility] <=16 (missing) (missing) AZTREONAM 2025-08-11 17:40 [facility] <=2 (missing) (missing) GENTAMICIN 2025-08-11 17:40 [facility] <=2 (missing) (missing) TETRACYCLINE 2025-08-11 17:40 [facility] <=2 (missing) (missing) TOBRAMYCIN 2025-08-11 17:40 [facility] <=2 (missing) (missing) PIPERACILLIN/TAZO BACTAM 2025-08-11 17:40 [facility] <=2/4 (missing) (missing) AMIKACIN 2025-08-11 17:40 [facility] <=8 (missing) (missing) NUCLEATED RED BLOOD CELLS AUTO 2025-08-11 17:40 [facility] 0.0 /100wbc (missing) BASOPHILS # (AUTO) 2025-08-11 17:40 [facility] 0.0 10 3/ul (missing) NRBC ABSOLUTE COUNT (AUTO) 2025-08-11 17:40 [facility] 0.00 x10 3/ul (missing) UROBILINOGEN,URIN E 2025-08-11 17:40 [facility] 0.2 (NORMAL) e.u./dl (missing) EOSINOPHILS # (AUTO) 2025-08-11 17:40 [facility] 0.3 10 3/ul (missing) MONOCYTES # (AUTO) 2025-08-11 17:40 [facility] 0.7 10 3/ul (missing) RBC MORPHOLOGY (MULTIPLE) 2025-08-11 17:40 [facility] 1+ ANISOCYTOSIS (missing) (missing) RBC MORPHOLOGY (MULTIPLE) 2025-08-11 17:40 [facility] 1+ MACROCYTOSIS (missing) (missing) SPECIFIC GRAVITY,URINE 2025-08-11 17:40 [facility] 1.010 (missing) (missing) CREATININE 2025-08-11 17:40 [facility] 1.1 mg/dl As of March 2023 testing method has changed, this may include reference ranges. LYMPHOCYTES # (AUTO) 2025-08-11 17:40 [facility] 1.8 10 3/ul (missing) MEAN PLATELET VOLUME 2025-08-11 17:40 [facility] 10.0 fl (missing) CUL, URINE 2025-08-11 17:40 [facility] 100>100,000 CFU/mL (missing) (missing) MEAN CORPUSCULAR VOLUME 2025-08-11 17:40 [facility] 106.2 fl (missing) RBC,URINE 2025-08-11 17:40 [facility] 11-25 /hpf (missing) SODIUM 2025-08-11 17:40 [facility] 130 mmol/l (missing) GLUCOSE 2025-08-11 17:40 [facility] 137 mg/dl As of March 2023 testing method has changed, this may include reference ranges. CEFAZOLIN 2025-08-11 17:40 [facility] 16 (missing) (missing) AMPICILLIN/SULBAC WEBBER 2025-08-11 17:40 [facility] 16/8 (missing) (missing) CEFEPIME 2025-08-11 17:40 [facility] 2 (missing) (missing) RED BLOOD COUNT 2025-08-11 17:40 [facility] 2.57 10 6/ul (missing) RED CELL DISTRIBUTION WIDTH 2025-08-11 17:40 [facility] 21.3 % (missing) CARBON DIOXIDE - CO2 2025-08-11 17:40 [facility] 25 mmol/l As of March 2023 testing method has changed, this may include reference ranges. HCT - HEMATOCRIT 2025-08-11 17:40 [facility] 27.3 % (missing) BUN - BLOOD UREA NITROGEN 2025-08-11 17:40 [facility] 29 mg/dl As of March 2023 testing method has changed, this may include reference ranges. MEAN CORPUSCULAR HGB CONC 2025-08-11 17:40 [facility] 30.0 g/dl (missing) MEAN CORPUSCULAR HEMOGLOBIN 2025-08-11 17:40 [facility] 31.9 pg (missing) NEUTROPHILS # (AUTO) 2025-08-11 17:40 [facility] 4.5 10 3/ul (missing) GFR - MDRD 2025-08-11 17:40 [facility] 49 (missing) The IDMS-traceable MDRD Study Equation has been validated extensively in and populations between the ages of 18 and 70 with impaired kidney function (eGFR < 60 mL/min/1.73m2) and has shown good performance for patients with all common causes of kidney disease. Although this equation has not been validated for patients older than 70, an MDRD-derived eGFR may still be a useful tool for providers caring for patients older than 70. References: http://www.nkd ep.nih.gov/lab -evaluation/gf r/creatinine-s tand ardization, last updated November 2011. POTASSIUM 2025-08-11 17:40 [facility] 5.8 mmol/l As of March 2023 testing method has changed, this may include reference ranges. ANION GAP 2025-08-11 17:40 [facility] 6.0 (missing) (missing) PH,URINE 2025-08-11 17:40 [facility] 6.0 ph (missing) WHITE BLOOD COUNT 2025-08-11 17:40 [facility] 7.3 x10 3/ul (missing) AZTREONAM 2025-08-11 17:40 [facility] 8 (missing) (missing) HGB - HEMOGLOBIN 2025-08-11 17:40 [facility] 8.2 g/dl (missing) CALCIUM 2025-08-11 17:40 [facility] 8.7 mg/dl As of March 2023 testing method has changed, this may include reference ranges. PIPERACILLIN/TAZO BACTAM 2025-08-11 17:40 [facility] 8/4 (missing) (missing) PLT - PLATELET COUNT 2025-08-11 17:40 [facility] 97 10 3/ul (missing) CHLORIDE 2025-08-11 17:40 [facility] 99 mmol/l As of March 2023 testing method has changed, this may include reference ranges. CUL, URINE 2025-08-11 17:40 [facility] Beta Lactamase (missing) (missing) CLARITY,URINE 2025-08-11 17:40 [facility] CLOUDY (missing) (missing) PLATELET ESTIMATE, MANUAL 2025-08-11 17:40 [facility] DECREASED (<130,000) (missing) (missing) SQUAMOUS EPITHELIAL CELL,UR 2025-08-11 17:40 [facility] FEW Squamous (missing) (missing) CUL, URINE 2025-08-11 17:40 [facility] GNGRAM NEGATIVE GROWTH TO BE FURTHER IDENTIFIED (missing) (missing) UR CULTURE IF IND 2025-08-11 17:40 [facility] INDICATED (missing) (missing) SLIDE REVIEW? 2025-08-11 17:40 [facility] Indicated (missing) (missing) CUL, URINE 2025-08-11 17:40 [facility] KLEBSIELLA: This organism is NEGATIVE for Extended Spectrum (missing) (missing) O:KLEOXY 2025-08-11 17:40 [facility] KLEOXYKLEBSIELLA OXYTOCAKLEBSIELLA OXYTOCA (missing) (missing) COLOR,URINE 2025-08-11 17:40 [facility] LIGHT YELLOW (missing) URINE RANDOM LEUKOCYTE ESTERASE, URINE 2025-08-11 17:40 [facility] MODERATE (missing) (missing) BACTERIA,URINE 2025-08-11 17:40 [facility] Many /hpf (missing) BILIRUBIN,URINE 2025-08-11 17:40 [facility] NEGATIVE (missing) Bilirubin can be influenced by color interference. Please correlate positive results with clinical presentation GLUCOSE, URINE (UA) 2025-08-11 17:40 [facility] NEGATIVE mg/dl (missing) KETONES,URINE (UA) 2025-08-11 17:40 [facility] NEGATIVE mg/dl (missing) PLATELET MORPHOLOGY 2025-08-11 17:40 [facility] NORMAL APPEARANCE (missing) (missing) CUL, URINE 2025-08-11 17:40 [facility] ORG.1PRELIM ORG ID* (missing) (missing) NITRITE,URINE 2025-08-11 17:40 [facility] POSITIVE (missing) (missing) WBC CLUMPS,URINE 2025-08-11 17:40 [facility] PRESENT (missing) (missing) O:PSEAER 2025-08-11 17:40 [facility] PSEAERPSEUDOMONAS AERUGINOSAPSEUDOMONAS AERUGINOSA (missing) (missing) OCCULT BLOOD,URINE 2025-08-11 17:40 [facility] SMALL (missing) (missing) PROTEIN,URINE 2025-08-11 17:40 [facility] TRACE mg/dl (missing) CUL, URINE 2025-08-11 17:40 [facility].1ORG 1 CC* (missing) (missing) CUL, URINE 2025-08-11 17:40 [employer] [facility].6COLONY COUNT (missing) (missing) Result panel 14 NUCLEATED RED BLOOD CELLS AUTO 2025-08-15 16:35 [facility] 0.0 /100wbc (missing) BASOPHILS # (AUTO) 2025-08-15 16:35 [facility] 0.0 10 3/ul (missing) NRBC ABSOLUTE COUNT (AUTO) 2025-08-15 16:35 [facility] 0.00 x10 3/ul (missing) BILIRUBIN,TOTAL 2025-08-15 16:35 [facility] 0.2 mg/dl As of March 2023 testing method has changed, this may include reference ranges. EOSINOPHILS # (AUTO) 2025-08-15 16:35 [facility] 0.4 10 3/ul (missing) MONOCYTES # (AUTO) 2025-08-15 16:35 [facility] 0.9 10 3/ul (missing) CREATININE 2025-08-15 16:35 [facility] 0.9 mg/dl As of March 2023 testing method has changed, this may include reference ranges. ALBUMIN/GLOBULIN RATIO 2025-08-15 16:35 [facility] 1.1 (missing) (missing) LYMPHOCYTES # (AUTO) 2025-08-15 16:35 [facility] 1.6 10 3/ul (missing) MEAN PLATELET VOLUME 2025-08-15 16:35 [facility] 10.6 fl (missing) CHLORIDE 2025-08-15 16:35 [facility] 100 mmol/l As of March 2023 testing method has changed, this may include reference ranges. MEAN CORPUSCULAR VOLUME 2025-08-15 16:35 [facility] 108.1 fl (missing) GLUCOSE 2025-08-15 16:35 [facility] 119 mg/dl As of March 2023 testing method has changed, this may include reference ranges. SODIUM 2025-08-15 16:35 [facility] 137 mmol/l Unknown RBC MORPHOLOGY (MULTIPLE) 2025-08-15 16:35 [facility] 2+ ANISOCYTOSIS (missing) (missing) RBC MORPHOLOGY (MULTIPLE) 2025-08-15 16:35 [facility] 2+ MACROCYTOSIS (missing) (missing) RED BLOOD COUNT 2025-08-15 16:35 [facility] 2.23 10 6/ul (missing) CRP - C-REACTIVE PROTEIN 2025-08-15 16:35 [facility] 2.8 mg/dl As of March 2023 testing method has changed, this may include reference ranges. GLOBULIN 2025-08-15 16:35 [facility] 2.9 g/dl (missing) RED CELL DISTRIBUTION WIDTH 2025-08-15 16:35 [facility] 21.0 % (missing) HCT - HEMATOCRIT 2025-08-15 16:35 [facility] 24.1 % (missing) FOLATE 2025-08-15 16:35 [facility] 26.3 ng/ml (missing) MEAN CORPUSCULAR HGB CONC 2025-08-15 16:35 [facility] 29.9 g/dl (missing) ALBUMIN 2025-08-15 16:35 [facility] 3.1 g/dl As of March 2023 testing method has changed, this may include reference ranges. NEUTROPHILS # (AUTO) 2025-08-15 16:35 [facility] 3.3 10 3/ul (missing) BUN - BLOOD UREA NITROGEN 2025-08-15 16:35 [facility] 30 mg/dl As of March 2023 testing method has changed, this may include reference ranges. MEAN CORPUSCULAR HEMOGLOBIN 2025-08-15 16:35 [facility] 32.3 pg (missing) CARBON DIOXIDE - CO2 2025-08-15 16:35 [facility] 33 mmol/l As of March 2023 testing method has changed, this may include reference ranges. ANION GAP 2025-08-15 16:35 [facility] 4.0 (missing) (missing) POTASSIUM 2025-08-15 16:35 [facility] 5.4 mmol/l As of March 2023 testing method has changed, this may include reference ranges. ALKALINE PHOSPHATASE 2025-08-15 16:35 [facility] 58 iu/l As of March 2023 testing method has changed, this may include reference ranges. ALT ALANINE AMINOTRANSFERASE 2025-08-15 16:35 [facility] 6 iu/l As of March 2023 testing method has changed, this may include reference ranges. TOTAL PROTEIN 2025-08-15 16:35 [facility] 6.0 g/dl As of March 2023 testing method has changed, this may include reference ranges. WHITE BLOOD COUNT 2025-08-15 16:35 [facility] 6.2 x10 3/ul (missing) VITAMIN B12 2025-08-15 16:35 [facility] 616 pg/ml VITAMIN B12 RANGES: NORMAL 180 - 914 INDETERMINATE 145 -180 DEFICIENT < 145 GFR - MDRD 2025-08-15 16:35 [facility] 62 (missing) The IDMS-traceable MDRD Study Equation has been validated extensively in and populations between the ages of 18 and 70 with impaired kidney function (eGFR < 60 mL/min/1.73m2) and has shown good performance for patients with all common causes of kidney disease. Although this equation has not been validated for patients older than 70, an MDRD-derived eGFR may still be a useful tool for providers caring for patients older than 70. References: http://www.nkdep .nih.gov/lab-zenaida luation/gfr/rehan davis-stand ardization, last updated November 2011. HGB - HEMOGLOBIN 2025-08-15 16:35 [facility] 7.2 g/dl (missing) AST ASPARTATE AMINOTRANSFERASE 2025-08-15 16:35 [facility] 8 iu/l As of March 2023 testing method has changed, this may include reference ranges. CALCIUM 2025-08-15 16:35 [facility] 8.6 mg/dl As of March 2023 testing method has changed, this may include reference ranges. PLT - PLATELET COUNT 2025-08-15 16:35 [facility] 94 10 3/ul (missing) PLATELET ESTIMATE, MANUAL 2025-08-15 16:35 [facility] DECREASED (<130,000) (missing) (missing) SLIDE REVIEW? 2025-08-15 16:35 [facility] Indicated (missing) (missing) PLATELET MORPHOLOGY 2025-08-15 16:35 [facility] NORMAL APPEARANCE (missing) (missing) WBC MORPHOLOGY (MULTIPLE) 2025-08-15 16:35 [facility] NORMAL APPEARANCE (missing) (missing) Social History date description facility
[2025-08-17 10:44] LABS: HCT - HEMATOCRIT 26.6 % (37.0-47.0); HGB - HEMOGLOBIN 8.1 g/dL (12.0-16.0); MEAN PLATELET VOLUME 9.7 fL (7.9-10.8); NRBC ABSOLUTE COUNT (AUTO) 0.00 x10^3/uL; NUCLEATED RED BLOOD CELLS AUTO 0.0 /100WBC; PLT - PLATELET COUNT 143 10^3/uL (130-450); RED CELL DISTRIBUTION WIDTH 20.0 % (12.0-15.0)
[2025-08-17] MEDS: METOPROLOL 5 MG/5 ML VIAL IVP STA (10:56)
[2025-08-17 11:04] LABS: TROPONIN I HIGH SENSITIVITY 12.1 ng/L (2.3-14.8)
[2025-08-17 11:18] LABS: ALT ALANINE AMINOTRANSFERASE 6.0 IU/L (10-60); AST ASPARTATE AMINOTRANSFERASE 9.0 IU/L (10-42); BUN - BLOOD UREA NITROGEN 18.0 mg/dL (6-20); CARBON DIOXIDE - CO2 37.0 mmol/L (21-32); CREATININE 0.7 mg/dL (0.6-1.3); GFR - MDRD 82.0 (>89)
--- NOTE | 2025-08-17 12:02 | CT Report ---
PROCEDURE: CT Head WO INDICATIONS: headache TECHNIQUE: CT of the head was performed, without intravenous contrast. Reformats: Coronal and sagittal. For radiation dose reduction, the following was used: automated exposure control, adjustment of mA and/or kV according to patient size. COMPARISON: 01/26/2025 FINDINGS: Image quality: Diagnostic. CSF spaces: Basal cisterns are patent. No extra-axial fluid collections. Ventricles are normal in size and shape. Brain: No midline shift. No intracranial mass effect or hemorrhage. Bunch- white matter interface is normal. Age appropriate volume loss and periventricular white matter hypoattenuation, likely chronic ischemic change. Skull and face: Calvarium and visualized facial bones are intact, without suspicious lesions. Sinuses: Visualized sinuses and mastoids are clear. IMPRESSION: No acute intracranial pathology. Reviewed by: Luis Fernando White MD on 08/17/2025 11:58 AM [facility] Approved by: Luis Fernando White MD on 08/17/2025 11:58 AM [facility] Station ID: [id number]
--- NOTE | 2025-08-17 12:05 | CT Report ---
PROCEDURE: CT Angio Chest INDICATIONS: chest pain pe prtocol CONTRAST: 80ml omni 300 TECHNIQUE: After the administration of intravenous contrast images of the chest were acquired. 3-dimensional coronal oblique maximum intensity projection (MIP) reformats, axial MIP, and coronal and sagittal MPR reformats were then performed through the chest. For radiation dose reduction, the following was used: automated exposure control, adjustment of mA and/or kV according to patient size. COMPARISON: None FINDINGS: Image quality: Excellent. Large vessels: No filling defects within the opacified pulmonary arteries, accounting for motion and contrast timing. No evidence of acute aortic syndrome or aortic aneurysm. Lungs and pleura: Minimal bilateral pleural effusions with associated compressive bibasilar atelectasis. Minimal patchy pneumonia involving the superior segment of right lower lobe and posterior segment of right upper lobe. Mediastinum: Heart size is normal. No pericardial effusion. No large vessel abnormality. No mediastinal adenopathy by size criteria. Chest wall and lower neck: Thyroid is unremarkable. No axillary or supraclavicular adenopathy by size. Bones: No aggressive osseous abnormality. Upper Abdomen: Unremarkable. IMPRESSION: No pulmonary embolus. Minimal patchy pneumonia involving focal areas of the right lower lobe and right upper lobe. Minimal pleural effusions and associated bibasilar atelectasis. Reviewed by: Luis Fernando White MD on 08/17/2025 12:01 PM PST Approved by: Luis Fernando White MD on 08/17/2025 12:01 PM PST Station ID: [id number]
[2025-08-17] MEDS: DOXYCYCLINE 100 MG TABLET PO STA (12:33)
[2025-08-17] MEDS: cefTRIAXone 1 GM VIAL IVP STA (12:38)
[2025-08-17] MEDS: MORPHINE 4 MG/ML VIAL IVP STA (12:47)
--- NOTE | 2025-08-17 12:52 | HISTORY & PHYSICAL EXAMINATION ---
Chief Complaint Chief Complaint Chief Complaint: PNA, chest pain, Afib, headache CPT Codes:: 73799 History of Present Illness Admitted From Admitted From:: ER History Obtained From Records Reviewed: ER, PCP History obtained from: ER physician, pt Exam Limitations: None History of Present Illness HPI Comment/Other: Pt is a 70yo F, [facility] resident, admitted from the ER after presenting for chest pain. She has a history of GERD, problems with a left hip replacement, femoral vein DVT and she endorses cardiac history, including Afib but is unclear on details to this point. Per the chart she has hx of endometrial CA, ABLA secondary to a bleed s/p total L knee arthroplasty in February and had received 7 units of blood, and was admitted to this facility in March for additional ABLA and received an additional unit. Additionally, she has had an NSTEMI, she thinks she has had stents and potentially a cardioversion, and related that she had been in [facility] . She relates she also had an infection s/p hip repair procedure ~1year ago, and a recent UTI which was treated with Cipro. Pt relates prior allergic reactions to azithromycin and relates that part of the erythematous skin findings on her LLE is due to this. Full medication history is pending med rec. Pt has an indwelling Morley and relates she is bedbound with no personal mobility. She further relates she has a long list of allergies, including Azithromycin, penicillin, Tdap, etc. Allergies list should now be comprehensive. Pt relates her daughter is a cardiology nurse, may be able to provide a more comprehensive oral hx for pt. Pt also endorses some scattered, nonclustered, pustular-maculopapular lesions on the abdomen, ongoing for " a couple weeks" and she relates a fever before these lesions appeared. She presents for chest pain, and says at some point last night she had significant pain radiating from fingers of her left hand across the chest that lasted about a minute and then lingered for maybe an hour. She now denies any chest pain or further paresthesias. Her main complaint now is is a headache with history of same, throbbing in nature and frontal, relieved with ice pack to back of neck. EKG showed Afib with runs of RVR to 127, and no acute ischemic changes. Troponin has been negative. CBC shows stable chronic macrocytic anemia, CMP showing some alkalosis which is worsening compared to prior. CT of the chest shows no PE, which was considered based on tachycardia, hx of DVT, and lack of anticoagulation with numerous RF. Pt does however have bilateral patchy pneumonia and bilateral pleural effusions, no elevated WBC. Head CT was negative. ROS: CP resolved at this time, no SOA, no increased WOB, no NVD, no syncope or near syncope, no fever/rigor/myalgias, no related dysuria but does endorse mild suprapubic tenderness. Meds/Allgy Home Medications Ambulatory Orders Medication Instructions Recorded Confirmed citalopram 10 mg tablet 10 mg PO DAILY 06/25/2404/01 clotrimazole 1 % topical cream 1 applic topical BID 04/14/25 nystatin 100,000 unit/gram topical 1 applic topical BI D moisture 06/25/24 04/14/25 powder primidone 50 mg tablet 50 mg PO BID 06/25/24 topiramate 25 mg tablet 25 mg PO DAILY 06/25/2404/01 triamcinolone acetonide 0.1 % 1 applic topical BID itc tanesha 06/25/24 04/14/25 lotion albuterol sulfate 90 mcg/actuation 2 puff inhalation Q 6H PRN wheezing 03/07/25 04/14/25 aerosol inhaler atorvastatin 40 mg tablet (Lipitor) 40 mg PO QPM 03/0704/14/25 bisacodyl 10 mg rectal suppository 10 mg HI DAILY PRN constipation 03/07/25 04/14/25 (Dulcolax (bisacodyl)) enalapril maleate 10 mg tablet 5 mg PO DAILY 03/07/25 04/14/25 enoxaparin 120 mg/0.8 mL 120 mg subcut Q12H 03/07/25 04/14/25 subcutaneous syringe Held on 03/09/25. Instructions: Hold until otherwise directed by provider folic acid 1 mg tablet 1 mg PO DAILY 03/07/2504/14 metoprolol succinate 25 mg 12.5 mg PO DAILY 03/07/25 0 04/14/25 tablet,extended release 24 hr mineral oil (Fleet Mineral Oil 118 ml HI DAILY PRN con stipation 03/07/25 04/14/25 enema) naloxone 4 mg/actuation nasal 1 spray intranasal Q2M P RN opioid 03/07/25 04/14/25 spray (Narcan) overdose omeprazole 20 mg capsule,delayed 20 mg PO DAILY 04/14/25 release ondansetron HCl 4 mg tablet 4 mg PO Q4H PRN nausea and vomiting 03/07/25 04/14/25 oxybutynin chloride 10 mg 10 mg PO DAILY 03/07/2504/01 tablet,extended release 24 hr oxycodone 5 mg tablet 5 mg PO Q6H PRN pain 5 04/14/25 polyethylene glycol 3350 17 gram 17 g PO DAILY 5 04/14/25 oral powder packet (Miralax) polyethylene glycol 3350 17 gram 17 g PO DAILY PRN con stipation 03/07/25 04/14/25 oral powder packet (Miralax) sennosides 8.6 mg tablet (Laxative 17.2 mg PO DAILY HI N constipation 03/07/25 04/14/25 (sennosides)) sennosides 8.6 mg tablet (senna) 8.6 mg PO DAILY 03/0704/14/25 ferrous sulfate 325 mg (65 mg 325 mg PO DAILY #30 tabs 03/09/25 04/14/25 iron) tablet (Iron (ferrous sulfate)) cefpodoxime 100 mg tablet 100 mg PO BID 7 days #14 tab s 05/17/25 ciprofloxacin HCl 500 mg tablet 500 mg PO BID #20 tabs 05/19/25 Allergies Allergies Allergy/AdvReac Type Severity Reaction Status Date / Time adhesive tape Allergy Unknown Hives Verified 08/17/25 11:21 bacitracin Allergy Unknown Unknown Verified 08/17/25 11:21 erythromycin base Allergy Unknown Rash Verified 08/17/25 11:21 Penicillins Allergy Unknown Hives, Verified 08/17/25 11:21 fever strawberry Allergy Unknown Hives Verified 08/17/25 11:21 walnut Allergy Unknown Hives Verified 08/17/25 11:21 azithromycin Allergy Hives Verified 08/17/25 11:21 mupirocin (From Bactroban) Allergy Rash Verified 08/17/25 11:21 Tetanus Vaccines and Toxoid Allergy Unknown Verified 08/17/25 11:21 lactose AdvReac Unknown Diarrhea, Verified 08/17/25 11:21 stomach cramps PFSH Active Problems All Active Problems (Updated 08/17/25 @ 13:45 by Baldemar Levi) Chronic UTI (Acute) Skin abnormalities (Acute) Acute hypoxic respiratory failure (Acute) Pneumonia (Acute) Atrial fibrillation (Chronic) Chest pain (Acute) Wound of skin (Acute) MARY (acute kidney injury) (Acute) ABLA (acute blood loss anemia) (Acute) Bleeding from left hip wound (Acute) Skin tear of left forearm without complication (Acute) Fall from ground level (Acute) Facial laceration (Acute) Closed fracture of neck of left femur (Acute) Changes in skin texture (Acute) Non-pressure chronic ulcer of buttock limited to breakdown of skin (Acute) Osteoarthritis of left knee (Acute) Arthritis of left knee (Acute) GERD (gastroesophageal reflux disease) (Acute) Internal hemorrhoid (Acute) Mixed hyperlipidemia (Acute) Sleep apnea in adult (Acute) Stage 3b chronic kidney disease (Acute) NSTEMI (non-ST elevated myocardial infarction) (Acute) History of atrial fibrillation (Acute) Drug induced constipation (Acute) Sinus bradycardia (Acute) Pressure sore on buttocks (Acute) Arthritis of left hip (Acute) Adenocarcinoma of endometrium (Acute 05/16/20) Sigmoid diverticulosis (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) Obstructive sleep apnea (Acute 12/18/17) [place]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) Essential hypertension (Acute 12/18/17) Depression, major, recurrent, mild (Acute 03/12/18) Chronic osteomyelitis involving right ankle and foot (Acute 05/23/21) BMI 40.0-44.9, adult (Acute 09/25/18) Benign essential tremor (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) Asthma, mild intermittent (Acute 11/27/18) Stasis dermatitis of both legs (Acute) Medical History Medical History (Updated 08/17/25 @ 13:45 by Baldemar Levi) GERD (gastroesophageal reflux disease) Polyarthritis OAB (overactive bladder) Hypertension Adenomatous colon polyp Furunculosis of buttock Furunculosis of abdominal wall Furuncle of left thigh Pressure injury of buttock, stage 2 Pressure injury of left ankle, stage 2 Surgical History Surgical History History of cardioversion 2005, for atrial fibrillation w/ NSTEMI History of esophagogastroduodenoscopy 04/2021, gastritis History of total abdominal hysterectomy and bilateral salpingo-oophorectomy 09/2020, robotic surgery for endometrial cancer H/O colonoscopy 04/2021, no polyps + sigmoid diverticulosis History of total knee replacement Right, 2013 H/O colonoscopy 2016, adenomatous polyp History of lumbar laminectomy 2011 History of cholecystectomy 2011 History of shoulder surgery Surgery for chronic dislocations History of tubal ligation 1982 History of tonsillectomy Amputation, toe, traumatic Age 3, digits 2-4 w/ lawnmower accident Family History Family History Mother CAD (coronary artery disease) Father CAD (coronary artery disease) Diabetes High blood pressure Brother Diabetes CAD (coronary artery disease) Sister Diabetes CAD (coronary artery disease) Social History Social History If you are a former smoker, when did you quit? (Date/Year): 1971 Number of Years Smoked: 1 How many cigarettes a day do you smoke? 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 Exam Exam Vital Signs: Vital Signs x48h Temp Pulse Resp BP BP Pulse Ox O2 Flow Rate 08/17/25 11:53 107 H 155/101 H 95 2 08/17/25 11:28 86 153/84 H 97 2 08/17/25 11:11 85 153/84 H 94 2 08/17/25 11:06 82 150/75 H 95 2 08/17/25 11:01 84 160/76 H 96 2 08/17/25 10:57 137 H 141/98 H 96 2 08/17/25 10:06 151/82 H 08/17/25 10:04 36.8 C 105 H 23 122/87 91 L Constitutional normal general appearance, no apparent distress, abnormal body habitus (obese) and alert HENTX normocephalic Eyes PERRL Neck/C-Spine visual inspection normal Chest inspection of chest normal Respiratory normal respiratory effort and wheezing noted (Minor expiratory wheezes) (expiratory wheezes) Cardiovascular heart rate abnormal (tachycardic) and rhythm abnormal (irregular) Gastrointestinal abdomen abnormal to inspection (Rash as above, minor tenderness to palp localized to suprapubic area) Genitourinary no CVA tenderness Extremities normal to inspection Bilateral pitting edema, 2+ in L, 1+ in R. Scattered erythema appreciated to LLE, no discrete cellulitic/erysipelas appearing lesion. Skin shinier on LLE than R. Neurology no focal motor deficit noted Skin rash noted and lesion(s) noted See above notes Conclusion/Plan Problem List (1) Pneumonia: Plan: Pt presents with Chest CT imaging which demonstrates minimal patchy pneumonia involving the superior segment of right lower lobe and posterior segment of right upper lobe. Also demonstrated are minimal bilateral pleural effusions with associated compressive bibasilar atelectasis. Pt lung sounds are actually very reassuring given a PNA dx and hx of asthma, with only mild end expiratory wheezin appreciated on the R and none on L. No other adventition appreciated. Pt oxygen sats have likewise been reassuring on her home 2-3LPM oxygen dose. Pt denies any respiratory s/s, with no fever, no leukocytosis, no increased WOB, , no AMS, no cyanosis, no accessory muscle use, no changes from baseline oxygen use. Given age, risk factors, and recent infective history, pt is being treated with single IV push doses of Ceftriaxone 1g and Doxycycline 100mg, and initiating PO Levaquin 750mg q/day x5 days. Qualifiers: Pneumonia type: due to unspecified organism Laterality: right Lung location: unspecified part of lung Qualified Code(s): J18.9 - Pneumonia, unspecified organism (2) Atrial fibrillation: Plan: In the ER, EKG showed Afib RVR to 127, with longstanding hx of Afib, and no ischemic changes or new BBB. Troponin has been normal to the time of writing this note, and patient has had no other s/s consistent with ACS. Pt does have hx of NSTEMI and stent placement. Rate control continuing forward with home dose Metoprolol 5mg IVP q6 PRN -Monitor for any changes, telemetry may be indicated if rate control medication management changes. -Pt is not adequately anticoagulated at this time. We are initiating standard DVT prophylactic Enoxaparin. Due to constellation of RF for thrombotic events (prior hx of DVT, intermediate stasis, afib) we will attempt to find records for any exclusion reason for intermediate anticoagulation. If none are found, followup with cardiology/PCP needed for DOAC initiation. Qualifiers: Atrial fibrillation type: longstanding persistent Qualified Code(s): I 48.11 - Longstanding persistent atrial fibrillation (3) Chronic UTI: Plan: Pt recently treated with Cipro for a UTI, with an indwelling Morley. UA/UCx not ordered in ER; can consider due to suprapubic tenderness on exam, although pt denies any CVA tenderness, dysuria, hematuria, or any other current urinary s/s, and has no fever or elevated WBC, and no azotemia noted on CMP. Will continue to monitor and reassess for concurrent UTI during her stay, but Levaquin for PNA mgmt should also provide crosscoverage for common UTI organisms. (4) Chest pain: Plan: She presents for chest pain, and says at some point last night she had significant pain radiating from fingers of her left hand across the chest that lasted about a minute and then lingered for maybe an hour. She now denies any chest pain or further paresthesias. Will continue to assess for any dynamic changes in ACS symptoms. Qualifiers: Chest pain type: other chest pain Qualified Code(s): R07.89 - Other chest pain (5) Asthma, mild intermittent: Plan: Pt relates hx of intermittent asthma, which sounds well controlled on her CARLEY, which she relates she only normally uses 1 or 2x per week. Will wait for med rec to ascertain if she is also on an ICS/formoterol, monteleukast, or LABA, but will modify tx during stay if needed. Pt denies any acute respiratory symptoms at this time with no report of new coughing or sputum production. Pt is on her home-dose oxygen therapy of 2-3LPMVNC, and no respiratory distress appreciated. Qualifiers: Asthma complication type: uncomplicated Qualified Code(s): J45.20 - Mild intermittent asthma, uncomplicated (6) Skin abnormalities: Lab Results Lab results reviewed: Yes 08/17/25 10:25 08/17/25 10:25
[2025-08-17] MEDS ORDERED: ONDANSETRON ODT 4 MG TABLET TL PRN (13:33)
[2025-08-17] MEDS ORDERED: SODIUM CHLORIDE FLUSH 0.9% 10 ML SYRINGE IVP PRN (13:33)
[2025-08-17 14:08] LABS: B. PARAPERTUSSIS- RESP PCR PAN NOT DETECTED; CORONAVIRUS 229E-RESP PCR NOT DETECTED; CORONAVIRUS HKU1-RESP PCR NOT DETECTED; CORONAVIRUS NL63-RESP PCR NOT DETECTED; CORONAVIRUS OC43-RESP PCR NOT DETECTED; HUMAN METAPNEUMOVIRUS NOT DETECTED; INFLUENZA A- RESP PCR PANEL NOT DETECTED; INFLUENZA B - RESP PCR PANEL NOT DETECTED; PARAINFLUENZA VIRUS 1 NOT DETECTED; PARAINFLUENZA VIRUS 2 NOT DETECTED; PARAINFLUENZA VIRUS 4 NOT DETECTED; RHINOVIRUS/ENTEROVIRUS NOT DETECTED; RSV- RESP PCR PANEL NOT DETECTED; SARS-CoV-2 -RESP PCR PANEL NOT DETECTED
[2025-08-17 14:09] LABS: B. PERTUSSIS- RESP PCR PANEL NOT DETECTED; C. PNEUMONIAE- RESP PCR PANEL NOT DETECTED; M. PNEUMONIAE- RESP PCR PANEL NOT DETECTED
--- NOTE | 2025-08-17 16:12 | PHARMACY PROGRESS NOTE ---
Best Possible Medication History Admit Date and Time: 08/17/25 [id number] Home Medications Medication Instructions Recorded Confirmed Type primidone 50 mg tablet 50 mg PO BID 06/25/24 History albuterol sulfate 90 mcg/actuation 2 puff inhalation Q 4H PRN 03/07/25 08/17/25 History aerosol inhaler shortness of breath or wheez ing metoprolol succinate 25 mg 12.5 mg PO DAILY 03/07/25 1 10/18/24 History tablet,extended release 24 hr oxycodone 5 mg tablet 5 mg PO Q6H PRN pain 5 08/17/25 History ciprofloxacin HCl 500 mg tablet 500 mg PO BID #20 tabs 05/19/25 08/17/25 Rx enalapril maleate 5 mg tablet 5 mg PO DAILY 08/17/25 1 10/18/24 History gabapentin 300 mg capsule 300 mg PO BID 08/17/2508/17 History ipratropium 0.5 mg-albuterol 3 mg 3 ml inhalation Q6H PRN shortness 08/17/25 08/17/25 History (2.5 mg base)/3 mL nebulization of breath or wheezing soln Processed by: Pharmacy Medications reviewed in ED?: No Medication History completed: Yes Secondary Source(s): Facility MAR as ONLY source ([facility] Records) [facility] Statement: As the person ultimately responsible for medication therapy, providers are able to order a medication from an existing home medication list in [facility] via the "Reconcile Routine" prior to Confirmation of that medication by telecommunications support. Such practice is discouraged except when the physician, in their clinical judgment, deems that a medical need exists for a medication without regard to previous use.
[2025-08-17] MEDS: SODIUM CHLORIDE FLUSH 0.9% 10 ML SYRINGE IVP SCH (16:20)
[2025-08-17] MEDS ORDERED: oxyCODONE 5 MG TABLET PO PRN (16:40)
[2025-08-17] MEDS ORDERED: IPRATROPIUM/ALBUTEROL 3 ML NEB INH PRN (16:40)
[2025-08-17] MEDS ORDERED: ALBUTEROL NEB 2.5 MG/3 ML INH PRN (16:50)
[2025-08-17] MEDS: METOPROLOL 5 MG/5 ML VIAL IVP PRN (18:59)
[2025-08-17] MEDS ORDERED: COD LIVER OIL/ZINC OXIDE 113 GM TUBE TOP PRN (19:40)
[2025-08-17] MEDS: PRIMIDONE 50 MG TABLET PO SCH (20:19)
[2025-08-17] MEDS: GABAPENTIN 300 MG CAPSULE PO SCH (20:19)
[2025-08-17] MEDS: METOPROLOL SUCCINATE 25 MG TABLET PO SCH (20:19)
[2025-08-17] MEDS: NYSTATIN POWDER 15 GM TOP SCH (20:27)
[2025-08-17] MEDS ORDERED: DOXYCYCLINE 100 MG TABLET PO SCH (21:00)
[2025-08-18 05:44] LABS: HCT - HEMATOCRIT 26.5 % (37.0-47.0); HGB - HEMOGLOBIN 8.0 g/dL (12.0-16.0); MEAN PLATELET VOLUME 9.8 fL (7.9-10.8); NRBC ABSOLUTE COUNT (AUTO) 0.03 x10^3/uL; NUCLEATED RED BLOOD CELLS AUTO 0.4 /100WBC; PLT - PLATELET COUNT 142 10^3/uL (130-450); RED CELL DISTRIBUTION WIDTH 20.5 % (12.0-15.0)
[2025-08-18 05:51] LABS: SLIDE REVIEW? Indicated
[2025-08-18 06:06] LABS: BUN - BLOOD UREA NITROGEN 18.0 mg/dL (6-20); CARBON DIOXIDE - CO2 36.0 mmol/L (21-32); CREATININE 0.7 mg/dL (0.6-1.3); GFR - MDRD 82.0 (>89)
[2025-08-18 06:14] LABS: PLATELET MORPHOLOGY NORMAL APPEARANCE (NORMAL)
[2025-08-18 06:15] LABS: PLATELET ESTIMATE, MANUAL NORMAL (130-450,000) (NORMAL)
[2025-08-18] MEDS: ACETAMINOPHEN 325 MG TABLET PO PRN (07:39)
[2025-08-18] MEDS: ENOXAPARIN 40 MG/0.4 ML SYRINGE SUBQ SCH (08:37)
[2025-08-18] MEDS ORDERED: METOPROLOL SUCCINATE 25 MG TABLET PO SCH (09:00)
[2025-08-18] MEDS ORDERED: cefTRIAXone 1 GM in SODIUM CHLORIDE 0.9% MINIBAG 100 ML IV SCH (09:00)
--- NOTE | 2025-08-18 12:29 | Discharge Summary ---
Discharge Summary Admit Date: 08/17/25 Discharge Date: 08/18/25 Discharging Provider: Romina Alex PA-C Primary Care Provider: Gaby Haddad MD Code Status: Attempt Resuscitation DIAGNOSES Discharge Diagnoses with Status of Each Condition: Acute hypoxic respiratory failure, resolved. Pneumonia Atrial fibrillation Chronic urinary retention with indwelling Duval Recurrent UTIs Chest pain Mild intermittent asthma HPI History of Present Illness: Pt is a 70yo F, [facility] resident, admitted from the ER after presenting for chest pain. She has a history of GERD, problems with a left hip replacement, femoral vein DVT and she endorses cardiac history, including Afib but is unclear on details to this point. Per the chart she has hx of endometrial CA, ABLA secondary to a bleed s/p total L knee arthroplasty in February and had received 7 units of blood, and was admitted to this facility in March for additional ABLA and received an additional unit. Additionally, she has had an NSTEMI, she thinks she has had stents and potentially a cardioversion, and related that she had been in [facility] . She relates she also had an infection s/p hip repair procedure ~1year ago, and a recent UTI which was treated with Cipro. Pt relates prior allergic reactions to azithromycin and relates that part of the erythematous skin findings on her LLE is due to this. Full medication history is pending med rec. Pt has an indwelling Duval and relates she is bedbound with no personal mobility. She further relates she has a long list of allergies, including Azithromycin, penicillin, Tdap, etc. Allergies list should now be comprehensive. Pt relates her daughter is a cardiology nurse, may be able to provide a more comprehensive oral hx for pt. Pt also endorses some scattered, nonclustered, pustular-maculopapular lesions on the abdomen, ongoing for " a couple weeks" and she relates a fever before these lesions appeared. She presents for chest pain, and says at some point last night she had significant pain radiating from fingers of her left hand across the chest that lasted about a minute and then lingered for maybe an hour. She now denies any chest pain or further paresthesias. Her main complaint now is is a headache with history of same, throbbing in nature and frontal, relieved with ice pack to back of neck. EKG showed Afib with runs of RVR to 127, and no acute ischemic changes. Troponin has been negative. CBC shows stable chronic macrocytic anemia, CMP showing some alkalosis which is worsening compared to prior. CT of the chest shows no PE, which was considered based on tachycardia, hx of DVT, and lack of anticoagulation with numerous RF. Pt does however have bilateral patchy pneumonia and bilateral pleural effusions, no elevated WBC. Head CT was negative. ROS: CP resolved at this time, no SOA, no increased WOB, no NVD, no syncope or near syncope, no fever/rigor/myalgias, no related dysuria but does endorse mild suprapubic tenderness. HOSPITAL COURSE Hospital Course: Pneumonia: There was some question about this patient having acute hypoxic respiratory failure. Initial reports were that the patient is not on baseline supplemental oxygen. AT the time of admission, she had a room air saturation of 85% that I observed. Patient, who was oriented to person, place, time and situation told me that she was on 2-3L home O2. Then, on the AM of HD #2, she reports to me that she only uses oxygen at night. This AM (day of DC) she is satting 93% on room air. Pt presents with Chest CT imaging which demonstrates minimal patchy pneumonia involving the superior segment of right lower lobe and posterior segment of right upper lobe. Also demonstrated are minimal bilateral pleural effusions with associated compressive bibasilar atelectasis. Adventitious breath sounds have resolved. She has some intermittent chest pain that I think is related to her PNA. She is doing well with using IS at the bedside. Pt denies any respiratory s/s, with no fever, no leukocytosis, no increased WOB, , no AMS, no cyanosis, no accessory muscle use, I will treat her with levaquin 750mg daily for a total of 5 days. 2 doses IV received here, start PO tx on 08/19 for 3 days. Atrial fibrillation: In the ER, EKG showed Afib RVR to 127, with longstanding hx of Afib, and no ischemic changes or new BBB. Troponin has been normal ,and patient has had no other s/s consistent with ACS. Pt does have hx of NSTEMI and stent placement. Home metoprolol succinate 12.5mg daily has been resumed. She did require several doses of metoprolol IV for rate control She is not anticoagulated at this time for her a fib. She is bed bound and lift dependent. She does not present a significant fall risk. I will leave it to her outpatient team to decide if she should be anticoagulated for stroke risk reduction. Chronic UTI: Plan: Pt recently treated with Cipro for a UTI, with an indwelling Duval. Attempted duval removal, and patient experienced urinary retention. Duval was replaced. Most recent urine culture 08/11. 1. [facility] RX --------- --- AMIKACIN <=8 S AZTREONAM 8 S CEFEPIME 2 S CIPROFLOXACIN <=0.25 S LEVOFLOXACIN <=0.5 S MEROPENEM <=0.5 S TOBRAMYCIN <=2 S PIPERACILLIN/TAZOBACTAM 8/4 S 2. KLEBSIELLA OXYTOCA [facility] RX --------- --- AMIKACIN <=8 S AMPICILLIN >16 R AMPICILLIN/SULBACTAM 16/8 I AZTREONAM <=2 S CEFAZOLIN 16 R CEFEPIME <=1 S CEFTRIAXONE <=1 S CIPROFLOXACIN <=0.25 S ERTAPENEM <=0.25 S GENTAMICIN <=2 S LEVOFLOXACIN <=0.5 S MEROPENEM <=0.5 S NITROFURANTOIN <=16 S TETRACYCLINE <=2 S TOBRAMYCIN <=2 S TRIMETHOPRIM/SULFAMETHOXAZOLE <=0.5/9.5 S PIPERACILLIN/TAZOBACTAM <=2/4 S Chest pain: She presents for chest pain, and says at some point last night she had significant pain radiating from fingers of her left hand across the chest that lasted about a minute and then lingered for maybe an hour. She continues to have some intermittent pain. I think this is due to her PNA. Asthma, mild intermittent: Pt relates hx of intermittent asthma, which sounds well controlled on her CARLEY, which she relates she only normally uses 1 or 2x per week. Will wait for med rec to ascertain if she is also on an ICS/formoterol, monteleukast, or LABA, but will modify tx during stay if needed. Pt denies any acute respiratory symptoms at this time with no report of new coughing or sputum production. Familial Tremor, Continue home meds. ALLERGIES Allergies Allergy/AdvReac Type Severity Reaction Status Date / Time adhesive tape Allergy Unknown Hives Verified 08/17/25 11:21 bacitracin Allergy Unknown Unknown Verified 08/17/25 11:21 erythromycin base Allergy Unknown Rash Verified 08/17/25 11:21 Penicillins Allergy Unknown Hives, Verified 08/17/25 11:21 fever strawberry Allergy Unknown Hives Verified 08/17/25 11:21 walnut Allergy Unknown Hives Verified 08/17/25 11:21 azithromycin Allergy Hives Verified 08/17/25 11:21 mupirocin (From Bactroban) Allergy Rash Verified 08/17/25 11:21 Tetanus Vaccines and Toxoid Allergy Unknown Verified 08/17/25 11:21 lactose AdvReac Unknown Diarrhea, Verified 08/17/25 11:21 stomach cramps MEDICATIONS Ambulatory Orders Medication Instructions Recorded Confirmed primidone 50 mg tablet 50 mg PO BID 06/25/24 albuterol sulfate 90 mcg/actuation 2 puff inhalation Q 4H PRN 03/07/25 08/17/25 aerosol inhaler shortness of breath or wheez ing metoprolol succinate 25 mg 12.5 mg PO DAILY 03/07/25 1 10/18/24 tablet,extended release 24 hr oxycodone 5 mg tablet 5 mg PO Q6H PRN pain 5 08/17/25 enalapril maleate 5 mg tablet 5 mg PO DAILY 08/17/25 1 10/18/24 gabapentin 300 mg capsule 300 mg PO BID 08/17/2508/17 ipratropium 0.5 mg-albuterol 3 mg 3 ml inhalation Q6H PRN shortness 08/17/25 08/17/25 (2.5 mg base)/3 mL nebulization of breath or wheezing soln levofloxacin 750 mg tablet 750 mg PO DAILY #3 tabs 08/02 PHYSICAL EXAM AT DISCHARGE Vital Signs: Vital Signs x48h Temp Pulse Resp BP Pulse Ox O2 Flow Rate 08/18/25 11:42 36.5 C 106 H 18 143/75 H 93 08/18/25 10:00 1 08/18/25 08:35 36.9 C 90 20 159/92 H 93 1 08/18/25 05:00 36.3 C L 90 20 152/68 H 97 1 General Appearance: positive No acute distress, Alert and Other (Obese female, BMI 44) Eyes Bilateral: positive Normal inspection ENT: positive ENT inspection nml Neck: positive Nml inspection Respiratory: positive Chest non-tender, No respiratory distress and Breath sounds nml Cardiovascular: positive No murmur and Irregularly irregular Abdomen: positive No distention Skin: positive Color nml and No rash Extremities: positive Non-tender Neurologic/Psychiatric: positive Oriented x3 LABS 08/18/25 05:18 08/18/25 05:18 DIAGNOSTIC IMAGING Diagnostic Imaging Results Comments: CTA of the chest: No PE. Minimal patchy pneumonia involving focal areas of the right lower lobe and right upper lobe. Minimal pleural effusions and associated bibasilar atelectasis. Head CT: No acute intracranial pathology. SEPSIS Current Stage of Sepsis: Ruled out Possible source of Sepsis: Pulmonary FOLLOW UP Follow Up: Assigned PCP at [facility] TIME SPENT Time Spent in Discharge (Minutes): 48 Discharge Plan Discharge Patient Disposition: [facility] DC/Xfer Condition: Serious Prescriptions: New levofloxacin 750 mg tablet 750 mg PO DAILY Qty: 3 0RF Continued metoprolol succinate 25 mg tablet extended release 24 hr 12.5 mg PO DAILY Rx Instructions: HOLD IF SBP < 110 OR HR < 60 oxycodone 5 mg tablet 5 mg PO Q6H PRN (Reason: pain) albuterol sulfate 90 mcg/actuation HFA aerosol inhaler 2 puff inhalation Q4H PRN (Reason: shortness of breath or wheezing) Rx Instructions: INHALE 2 PUFFS BY MOUTH FOUR TIMES DAILY NEEDED FOR WHEEZING ipratropium-albuterol 0.5 mg-3 mg(2.5 mg base)/3 mL solution for nebulization 3 ml inhalation Q6H PRN (Reason: shortness of breath or wheezing) enalapril maleate 5 mg tablet 5 mg PO DAILY Rx Instructions: HOLD IF SBP < 110 gabapentin 300 mg capsule 300 mg PO BID primidone 50 mg tablet 50 mg PO BID Discontinued ciprofloxacin HCl 500 mg tablet 500 mg PO BID Qty: 20 0RF Diet: Regular Health Concerns: Pneumonia: There was some question about this patient having acute hypoxic respiratory failure. Initial reports were that the patient is not on baseline supplemental oxygen. AT the time of admission, she had a room air saturation of 85% that I observed. Patient, who was oriented to person, place, time and situation told me that she was on 2-3L home O2. Then, on the AM of HD #2, she reports to me that she only uses oxygen at night. This AM (day of DC) she is satting 93% on room air. Pt presents with Chest CT imaging which demonstrates minimal patchy pneumonia involving the superior segment of right lower lobe and posterior segment of right upper lobe. Also demonstrated are minimal bilateral pleural effusions with associated compressive bibasilar atelectasis. Adventitious breath sounds have resolved. She has some intermittent chest pain that I think is related to her PNA. She is doing well with using IS at the bedside. Pt denies any respiratory s/s, with no fever, no leukocytosis, no increased WOB, , no AMS, no cyanosis, no accessory muscle use, I will treat her with levaquin 750mg daily for a total of 5 days. 2 doses IV received here, start PO tx on 08/19 for 3 days. Atrial fibrillation: In the ER, EKG showed Afib RVR to 127, with longstanding hx of Afib, and no ischemic changes or new BBB. Troponin has been normal ,and patient has had no other s/s consistent with ACS. Pt does have hx of NSTEMI and stent placement. Home metoprolol succinate 12.5mg daily has been resumed. She did require several doses of metoprolol IV for rate control She is not anticoagulated at this time for her a fib. She is bed bound and lift dependent. She does not present a significant fall risk. I will leave it to her outpatient team to decide if she should be anticoagulated for stroke risk reduction. Chronic UTI: Plan: Pt recently treated with Cipro for a UTI, with an indwelling Duval. Attempted duval removal, and patient experienced urinary retention. Duval was replaced. Most recent urine culture 08/11. 1. [facility]UDOMONAS AERUGINOS[facility] RX --------- --- AMIKACIN <=8 S AZTREONAM 8 S CEFEPIME 2 S CIPROFLOXACIN <=0.25 S LEVOFLOXACIN <=0.5 S MEROPENEM <=0.5 S TOBRAMYCIN <=2 S PIPERACILLIN/TAZOBACTAM 8/4 S 2. KLEBSIELLA OXYTOCA [facility] RX --------- --- AMIKACIN <=8 S AMPICILLIN >16 R AMPICILLIN/SULBACTAM 16/8 I AZTREONAM <=2 S CEFAZOLIN 16 R CEFEPIME <=1 S CEFTRIAXONE <=1 S CIPROFLOXACIN <=0.25 S ERTAPENEM <=0.25 S GENTAMICIN <=2 S LEVOFLOXACIN <=0.5 S MEROPENEM <=0.5 S NITROFURANTOIN <=16 S TETRACYCLINE <=2 S TOBRAMYCIN <=2 S TRIMETHOPRIM/SULFAMETHOXAZOLE <=0.5/9.5 S PIPERACILLIN/TAZOBACTAM <=2/4 S Chest pain: She presents for chest pain, and says at some point last night she had significant pain radiating from fingers of her left hand across the chest that lasted about a minute and then lingered for maybe an hour. She continues to have some intermittent pain. I think this is due to her PNA. Asthma, mild intermittent: Pt relates hx of intermittent asthma, which sounds well controlled on her CARLEY, which she relates she only normally uses 1 or 2x per week. Will wait for med rec to ascertain if she is also on an ICS/formoterol, monteleukast, or LABA, but will modify tx during stay if needed. Pt denies any acute respiratory symptoms at this time with no report of new coughing or sputum production. Familial Tremor, Continue home meds. Print Language: Dominican Stand Alone Forms: SNF Discharge Follow-up Care: Yolanda Jj of [Primary Care Provider, [employer]] Vitals documented within 30 minutes of discharge?: Yes
[2025-08-18 15:27] VITALS: BP 172/96; TEMP 98.1; O2SAT 94
== END 2025-08-18 15:27 ==
LOC: MS2 09:53 → ED 09:53 → MS2 13:38
PROVIDERS: ADMIT Physician Assistant Medical; ATTEND Physician Assistant Medical